=== PATIENT | male | born 1945 | race Caucasian/White ===

== ENCOUNTER 2022-10-06 10:44 | Outpatient (CLI) | payer MEDICARE, OTHER, SELFPAY | END 2022-10-06 10:45 | disposition home or self-care (01) | PROVIDERS: PCP Family Medicine; Visit Provider Family Medicine | DX: I11.0 Hypertensive heart disease with heart failure (principal); E78.5 Hyperlipidemia, unspecified; C61 Malignant neoplasm of prostate | CPT/HCPCS: 80048; 80061; 84153 ==

== ENCOUNTER 2023-06-12 11:24 | Outpatient (CLI) | payer MEDICARE, OTHER, SELFPAY ==
--- OUTSIDE RECORDS SUMMARY | 2023-06-12 11:29 | XMS_ITS | Referral Summary ---
Author Name Unknown Organization [facility] Address [address] [place] [address]. [place] [address] Care Team Providers Care Retail Leasing Agent Name Role Phone Oren Marshall MD Primary Care Provider [phone] Allergies Active Allergy Reactions Criticality Noted Date Comments Isoniazid 10/16/2015 Medications Medication Sig Dispensed Refills Start Date End Date Status TAMSULOSIN HCL PO Take 0.4 mg by mouth daily Active LISINOPRIL PO Take 20 mg by mouth daily Active METOPROLOL TARTRATE PO Take 100 mg by mouth daily Active CITALOPRAM HYDROBROMIDE PO Take 20 mg by mouth daily Active ATORVASTATIN CALCIUM PO Take 20 mg by mouth daily Active Ipratropium-Albuterol (COMBIVENT RESPIMAT) 20-100 MCG/ACT inhaler Inhale 1 puff into the lungs 4 times daily Active VITAMIN D, CHOLECALCIFEROL, PO Take 5,000 Units by mouth daily Active AMLODIPINE BESYLATE PO Take 2.5 mg by mouth daily Active Acetaminophen (TYLENOL PO) Take 1,000 mg by mouth 2 times daily Active HYDROcodone-acetamino phen (NORCO) 5-325 MG per tabletIndications:Pro state CA (H) Take 1-2 tablets by mouth every 4 hours as needed for moderate to severe pain (Moderate to Severe Pain) 30 tablet 0 10/16/2015 Active sulfamethoxazole-trim ethoprim (BACTRIM DS,SEPTRA DS) 800-160 MG per tabletIndications:Pro state CA (H) Take 1 tablet by mouth 2 times daily 14 tablet 0 10/16/2015 Active oxybutynin (DITROPAN) 5 MG tabletIndications:Pro state CA (H) Take 1 tablet (5 mg) by mouth every 8 hours as needed for bladder spasms 30 tablet 1 10/17/2015 Active Active Problems Problem Noted Date Diagnosed Date Hypoxia 10/16/2015 Social History Tobacco Use Types Packs/Day Years Used Date Smoking Tobacco: Former Dip, chew, snus or snuff Alcohol Use Standard Drinks/Week Comments Yes 0 (1 standard drink = 0.6 oz pur e alcohol) rare Adolescent Education Answer Date Record ed Getting School Help Needed Not on file 11/23 Sex and Gender Information Value Date Recorded Sex Assigned at Not on file Gender Identity Not on file Sexual Orientation Not on file Last Filed Vital Signs Vital Sign Reading Time Taken Comments Blood Pressure 114/65 10/17/2015 8:00 AM CDT Pulse - - Temperature 37.7 ??C (99.9 ??F) 10/17/2015 8:00 AM CD T Respiratory Rate 23 10/17/2015 11:0 0 AM CDT Oxygen Saturation 94% 10/17/2015 11: 00 AM CDT Inhaled Oxygen Concentration - - Weight 115.5 kg (254 lb 10.1 oz) 10/16/2015 3:50 PM CDT Height 177.8 cm (5' 10) 10/16/2015 8:44 AM CDT Body Mass Index 36.54 10/16/2015 8:44 AM CDT Plan of Treatment Not on file Procedures Procedure Name Priority Date/Time Associated Diagnosis Comments GLUCOSE BY METER Routine 10/16/2015 3:42 PM CDT Prostate CA (H) from Last 3 Months or Most Recently Relevant to Health Maintenance Results * Glucose by meter (10/16/2015 3:42 PM CDT) Glucose 88 70 - 99 mg/dL POINT OF CARE TEST, GLUCOSE 10/16/2015 3:42 PM CDT 10/16/2015 3:45 PM CDT [facility] POINT OF CARE TEST, GLUCOSE from Last 3 Months or Most Recently Relevant to Health Maintenance Advance Directives For more information, please contact: [phone] * Full Code (Latest Code Status on File) Date Activated Date Inactivated Comments 10/16/2015 7:06 PM 10/17/2015 3:07 PM Care Teams Retail Leasing Agent Relationship Specialty Start Date End Date Oren Marshall MD [facility] [address] [place] [address] PCP - General Family Practice 10/01/15
--- OUTSIDE RECORDS SUMMARY | 2023-06-12 11:29 | XMS_ITS | Clinical Summary ---
Author Name Unknown Organization [facility] Address [place], [place] [address] Care Team Providers Care Veterinary X Ray Operator Name Role Phone Ej Marshall MD Primary Care Provider [phone] Allergies Active Allergy Reactions Criticality Noted Date Comments Isoniazid Rash 06/06/2015 Medications Medication Sig Dispensed Refills Start Date End Date Status lisinopril (PRINIVIL; ZESTRIL) 20 mg tablet Take 20 mg by mouth once daily. Active Cetirizine 10 mg capIndications:season al allergic rhinitis Take 10 mg by mouth once daily if needed. Indications: SEASONAL ALLERGIC RHINITIS Active metoprolol succinate (TOPROL XL) 100 mg Sustained-Release tablet Take 100 mg by mouth once daily. Active escitalopram oxalate (LEXAPRO) 20 mg tablet Take 20 mg by mouth every morning. Active atorvastatin (LIPITOR) 20 mg tabletIndications:Cer ebrovascular accident (CVA), unspecified mechanism (HC) Take 1 tablet by mouth at bedtime. 30 tablet 0 04/15/2015 Active aspirin (ECOTRIN) 81 mg enteric coated tabletIndications:Cer ebrovascular accident (CVA), unspecified mechanism (HC) Take 1 tablet by mouth once daily with a meal. 0 04/15/2015 Active citalopram (CELEXA) 20 mg tablet Take 1 tablet by mouth once daily. 05/02/2015 Active Cholecalciferol, Vitamin D3, (VITAMIN D-3) 5,000 unit tab Take by mouth once daily. 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 CAPRICE (acute kidney injury) 04/12/2015 Immunizations Name Administration Dates Next Due Influenza, IIV3 (Age >=3 years) 12/17/2014 Social History Tobacco Use Types Packs/Day Years Used Date Smoking Tobacco: Never Smokeless Tobacco: Former Quit: 05/10/2013 Tobacco Cessation:Counseling Given: Yes Alcohol Use Standard Drinks/Week Comments Yes 0 (1 standard drink = 0.6 oz pur e alcohol) 3-4 times per year Sex and Gender Information Value Date Recorded Sex Assigned at Not on file Gender Identity Not on file Sexual Orientation Not on file Obstetrics History Last Filed Vital Signs Vital Sign Reading Time Taken Comments Blood Pressure 152/92 04/02/2016 2:41 PM BUSINESS LAWYER Pulse 66 04/02/2016 2:41 PM BUSINESS LAWYER Temperature 36.6 ??C (97.8 ??F) 04/02/2016 2:41 PM CS T Respiratory Rate 20 04/15/2015 9:41 AM BUSINESS LAWYER Oxygen Saturation 99% 11/07/2015 1:33 PM CDT Inhaled Oxygen Concentration - - Weight 115.3 kg (254 lb 1.6 oz) 04/02/2016 2:41 PM BUSINESS LAWYER Height 176.5 cm (5' 9.5) 11/07/2015 1:33 PM CDT Body Mass Index 36.99 11/07/2015 1:33 PM CDT Plan of Treatment Health Maintenance Due Date Last Done Comments Tdap 11/24/1956 Depression screening for age 12+ 1959 Hepatitis C screening for ag e 18-79 11/24/1965 Tetanus booster 1967 Colonoscopy through age 75 11/24/1992 Zoster (shingles) series for age 50+ (1 of 2) 11/24/1997 Pneumococcal series for age 65+ (1 of 1 - PCV) 11/24/2012 BMI (ht and wt on same day) for age 18+ 11/06/2016 11/07/2015, 07/25/2015, 06/06/2015, Additional history exists Lipids for age 45-75 04/13/2020 04/13/2015 COVID-19 vaccine series (2022- season) 2022 Influenza for age 65+ 10/18/2023 12/17/2014 Procedures Procedure Name Priority Date/Time Associated Diagnosis Comments LIPID PANEL Early AM 04/13/2015 5:55 AM BUSINESS LAWYER from Last 3 Months or Most Recently Relevant to Health Maintenance Results * (ABNORMAL) Lipid Panel - Fasting (04/13/2015 5:55 AM BUSINESS LAWYER) CHOLESTEROL,TOTAL 177 100 - 199 mg/dL 04/13/2015 7:16 AM BUSINESS LAWYER [facility] TRIGLYCERIDES 122 <150 mg/dL 04/13/2015 7:16 AM BUSINESS LAWYER [facility] HDL CHOLESTEROL 36(L) >40 mg/dL 04/13/2015 7:16 AM BUSINESS LAWYER [facility] NON-HDL CHOLESTEROL 141 <145 mg/dl 04/13/2015 7:16 AM BUSINESS LAWYER [facility] CHOL/HDL RATIO 4.92(H) <4.50 04/13/2015 7:16 AM BUSINESS LAWYER [facility] LDL CHOLESTEROL 117 <=130 mg/dL 04/13/2015 7:16 AM BUSINESS LAWYER [facility] PATIENT STATUS NOT GIVEN 04/13/2015 7:16 AM BUSINESS LAWYER [facility] Blood specimen (specimen) BLOOD SPECIMEN / Unknown Venipuncture / Unknown 04/13/2015 5:55 AM BUSINESS LAWYER 04/13/2015 6:17 AM BUSINESS LAWYER Teofilo ONTIVEROS [facility] [address] [place] [address] from Last 3 Months or Most Recently Relevant to Health Maintenance Advance Directives * Full Code (Latest Code Status on File) Date Activated Date Inactivated Comments 04/12/2015 1:28 PM 04/15/2015 3:39 PM Care Teams Veterinary X Ray Operator Relationship Specialty Start Date End Date Ej Marshall MD PCP - General Family Practice 05/24/15
--- OUTSIDE RECORDS SUMMARY | 2023-06-12 11:29 | XMS_ITS | Continuity of Care Document ---
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 It does not include entries that were removed or entered in error. Problem Status Onset Date Problem Type Date of Resolution Comments Source Exposure to potentially hazardous substance ([facility] [id number]) Active 04/24/19 24 Condition Apr 24, 2023 Entered By: GUADALUPE ANTONY [facility]: [facility] Documentation Initiative [facility] Benign Prostatic Hypertrophy with Outflow Obstruction (SCT [id number]) Active Condition [facility] Body mass index 30+ - obesity Active Condition [facility] Chronic Kidney Disease Stage 3 ([facility] [id number]) Active Condition [facility] Depression ([facility] [id number]) Active Condition Aug 14, 2022 Entered By: MIGUEL ANGEL AVILES Comment: MANAGED BY [place] Psychiatrist, scripts to [facility] from , Currently on Citalopram and Sertraline [facility] Dyspnea Active Condition Aug 27 Entered By: MIGUEL ANGEL AVILES Comment: outside [place] PFTs show probable obstructionJul 2021 Entered By: MIGUEL ANGEL AVILES Comment: [place] been seen by [place] para professional, PFTs there normal with recs to STOP INHALERS without asthma or COPDSep 2021 Entered By: MIGUEL ANGEL AVILES Comment: SEE RESULT LETTER 11/01/21 for details of Stress ECG negative for ischemia.Nov 04, 2021 Entered By: MIGUEL ANGEL AVILES Comment: Peak heart rate 125 bpm, which is 85% of the maximum predicted heart rate.Nov 04, 2021 Entered By: MIGUEL ANGEL AVILES Comment: test was stopped due to SOB and leg weakness [facility] Ex-tobacco chewer Active Condition Ju 2021 Entered By: MIGUEL ANGEL AVILES Comment: has smoked Cigars from 9997-3475, then chewed tobacco to quit in 2014 [facility] Family social history Active Condition Aug 12, 2021 Entered By: MIGUEL ANGEL AVILES Comment: Smoked Cigars from 4340-5838, then chewed tobacco to quit in 2021 Entered By: MIGUEL ANGEL AVILES Comment: [employer]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 Entered By: MIGUEL ANGEL AVILES Comment: Dad of colon cancer surgery had a pad left behind at age 62Jun 2021 Entered By: MIGUEL ANGEL AVILES Comment: Mom was smoker and was life long Alcoholic at age 66Jun 2021 Entered By: MIGUEL ANGEL AVILES Comment: Biological Daughter has MS and lives with themAug 12, 2021 Entered By: MIGUEL ANGEL AVILES Comment: Able to drive, grocery shopping, cooks with , does laundry, he does yard workAug 12, 2021 Entered By: MIGUEL ANGEL AVILES Comment: Snow work is hired outAug 12, 2021 Entered By: MIGUEL ANGEL AVILES Comment: was deployed to [employer] area) [place] 2021 Entered By: MIGUEL ANGEL AVILES Comment: Alcohol 1-2 beers a year [facility] GERD - Gastro-Esophageal Reflux Disease ([facility] [id number]) Active Condition [facility] H/O: surgery Active Condition Aug 12, 2021 Entered By: MIGUEL ANGEL AVILES Comment: s/p TURP- FOR PROSTATE CANCER S/P CRYOTHERAPYJun 2021 Entered By: MIGUEL ANGEL AVILES Comment: S/p Right Ankle fracture repair HardwareJun 2021 Entered By: MIGUEL ANGEL AVILES Comment: s/p B/L Cataract surgeryJun 2021 Entered By: MIGUEL ANGEL AVILES Comment: HAS HAD DELAYED RECOVERY FROM ANESTHESIAJun 2021 Entered By: MIGUEL ANGEL AVILES Comment: s/p Colonoscopy 2019 F/U IN 10 YRS and wants to stop screening [facility] History of acute renal failure Active Condition [facility] HTN - Hypertension (SCT [id number]) Active Condition [facility] Hyperlipidemia (SCT 79974590) Active Condition [facility] left orbital mass Active Condition Ju n 2021 Entered By: MIGUEL ANGEL AVILES Comment: Thought to be benign, 02/09/2020 CT done at [place] shows it was in left upper lid without involving the globe [facility] Left ventricular hypertrophy Active Condition [facility] Osteoarthritis Active Condition [facility] Prostate Cancer (SCT [id number]) Active Condition Aug 12, 2021 Entered By: MIGUEL ANGEL AVILES Comment: S/P CRYOTHERAPYJun 2021 Entered By: MIGUEL ANGEL AVILES Comment: Managed by Urologist at [facility] with [facility] Visual impairment Active Condition Ju n 2021 Entered By: MIGUEL ANGEL AVILES Comment: from previous STROKE, Blurry and lost peripheral vision for 1 week and gradually better now [facility] Diagnosis: ICD-10-CM Z71.9 Counseling, unspecified Active Diagnosis [facility] Diagnosis: ICD-10-CM Z00.01 Encounter for general adult medical exam w abnormal findings Active Diagnosis [facility] Medications Combined list of outpatient medications from Department of Defense and Veterans Affairs facilities.Medications provided include 1) outpatient medications from the last 15 months, and 2) patient-reported medications. Medication Details Route Status Patient Instructions Prescription Expires Prescription Number Last Dispense Date Ordering Provider Order Date Order Qty Source AMLODIPINE BESYLATE (amlodipine besylate), 5 MG, TABLET, ORAL, [facility], 1000 ea. BOTTLE Active [id number] 2022 90 Pharmac y Data Transac tion Service Facilit y AMLODIPINE BESYLATE (AMLODIPINE BESYLATE), 5 MG, TABLET, ORAL, EXELAN PHARMACE, 1000 ea. BOTTLE Active [id number] 4 2023 90 Pharmac y Data Transac tion Service Facilit y AMLODIPINE BESYLATE 10MG TAB TAKE ONE-HALF TABLET BY MOUTH EVERY EVENING ORALLY ACTIVE VIVIAN AVILES S 2021 [facility] ASPIRIN 81MG TAB,EC TAKE ONE TABLET BY MOUTH EVERY DAY ORALLY ACTIVE VIVIAN AVILES S 2021 [facility] ATORVASTATI N CA 40MG TAB TAKE ONE-HALF TABLET BY MOUTH EVERY DAY ORALLY ACTIVE VIVIAN AVILES S 2021 [facility] ATORVASTATI N CALCIUM (ATORVASTAT IN CALCIUM), 20 MG, TABLET, ORAL, APOTEX DARCI, 1000 ea. BOTTLE Active [id number] 4 2023 90 Pharmac y Data Transac tion Service Facilit y ATORVASTATI N CALCIUM (atorvastat in calcium), 20 MG, TABLET, ORAL, [employer] [facility], 500 ea. BOTTLE Active [id number] 4 2023 90 Pharmac y Data Transac tion Service Facilit y BUSPIRONE HCL (buspirone HCl), 5 MG, TABLET, ORAL, [employer] 500 ea. BOTTLE Active [id number] 2023 180 Pharmac y Data Transac tion Service Facilit y BUSPIRONE HCL (buspirone HCl), 5 MG, TABLET, ORAL, [employer] 500 ea. BOTTLE Active [id number] 2023 180 Pharmac y Data Transac tion Service Facilit y COMBIVENT RESPIMAT (IPRATROPIU M/ALBUTEROL SULFATE), 20-100 MCG, MIST INHAL, INHALATION, BOEHRINGER ING., 4 g AER W/ADAP Active [id number] 2023 12 Pharmac y Data Transac tion Service Facilit y COMBIVENT RESPIMAT (IPRATROPIU M/ALBUTEROL SULFATE), 20-100 MCG, MIST INHAL, INHALATION, BOEHRINGER ING., 4 g AER W/ADAP Active [id number] 2023 12 Pharmac y Data Transac tion Service Facilit y LISINOPRIL (lisinopril ), 20 MG, TABLET, ORAL, [facility], 1000 ea. BOTTLE Active [id number] 4 2023 90 Pharmac y Data Transac tion Service Facilit y LISINOPRIL 40MG TAB TAKE ONE-HALF TABLET BY MOUTH ORALLY ACTIVE VIVIAN AVILES S 2021 [facility] METOPROLOL SUCCINATE (metoprolol succinate), 100 MG, TAB ER 24H, ORAL, [employer] 1000 ea. BOTTLE Active [id number] 4 2023 90 Pharmac y Data Transac tion Service Facilit y METOPROLOL SUCCINATE (metoprolol succinate), 100 MG, TAB ER 24H, ORAL, [employer] 1000 ea. BOTTLE Active [id number] 2023 90 Pharmac y Data Transac tion Service Facilit y METOPROLOL TARTRATE 100MG TAB TAKE ONE TABLET BY MOUTH ORALLY ACTIVE VIVIAN AVILES 2021 [facility] NON VA MED NOT LISTED USE CITALOPR AM HYDROBRO MIDE MOUTH ORALLY ACTIVE VIVIAN AVILES 2021 [facility] NON VA MED NOT LISTED USE IPRATROP IUM-ALBU TEROL (COMBIVE NT RESPIMAT ) 20-100 MCG/ACT INHALER MOUTH FOUR TIMES A DAY ORALLY ACTIVE VIVIAN AVILES 2021 [facility] OMEPRAZOLE 20MG CAP,EC TAKE 1 CAPSULE BY MOUTH EVERY DAY ORALLY ACTIVE VIVIAN AVILES 2021 [facility] SERTRALINE HCL (SERTRALINE HCL), 100MG, TABLET, ORAL, [facility], 500 ea. BOTTLE Active [id number] 2023 90 Pharmac y Data Transac tion Service Facilit y SERTRALINE HCL (SERTRALINE HCL), 100MG, TABLET, ORAL, [facility], 500 ea. BOTTLE Cancele d [id number] : 2023 0 Pharmac y Data Transac tion Service Facilit y SERTRALINE HCL (SERTRALINE HCL), 100MG, TABLET, ORAL, [facility], 500 ea. BOTTLE Cancele d [id number] : 2023 0 Pharmac y Data Transac tion Service Facilit y SERTRALINE HCL (SERTRALINE HCL), 100MG, TABLET, ORAL, [facility], 500 ea. BOTTLE Active [id number] 2023 90 Pharmac y Data Transac tion Service Facilit y SERTRALINE HCL (sertraline HCl), 50 MG, TABLET, ORAL, [employer] [facility], 180 ea. BOTTLE Cancele d [id number] : 2023 0 Pharmac y Data Transac tion Service Facilit y SERTRALINE HCL (SERTRALINE HCL), 50 MG, TABLET, ORAL, [facility], 500 ea. BOTTLE Active [id number] 2023 180 Pharmac y Data Transac tion Service Facilit y SERTRALINE HCL 100MG TAB TAKE ONE TABLET BY MOUTH EVERY MORNING ORALLY ACTIVE VIVIAN AVILES S 2021 [facility] TAMSULOSIN HCL 0.4MG CAP TAKE 1 CAPSULE BY MOUTH ORALLY ACTIVE VIVIAN AVILES S 2021 [facility] TIZANIDINE HCL (TIZANIDINE HCL), 4MG, TABLET, ORAL, [employer] DARCI, 150 ea. BOTTLE Active [id number] 2023 270 Pharmac y Data Transac tion Service Facilit y TIZANIDINE HCL (TIZANIDINE HCL), 4MG, TABLET, ORAL, [employer] DARCI, 150 ea. BOTTLE Active [id number] 2023 270 Pharmac y Data Transac tion Service Facilit y TIZANIDINE HCL 4MG TAB TAKE ONE TABLET BY MOUTH EVERY 8 HOURS NEEDED ORALLY ACTIVE VIVIAN AVILES S 2021 [facility] Allergies, Adverse Reactions, Alerts Combined list of allergies from Department of Defense and Veterans Affairs facilities. It does not include entries that were removed or entered in error. Substance Category Reaction Severity Reaction type Status Date Reported Comments Source ISONIAZID Drug allergy (disorder) Urticaria active 2 [facility] Immunizations Combined list of available immunizations from the Department of Defense and Veterans Affairs facilities. Immunization Series Date Given Administered By Site Reaction Lot Number CVX Code Drug Paper Machine Back Tender Status Comments Source COVID-19 ([employer]), MRNA, LNP-S, PF, LUZ-SUCROSE, 30 MCG/0.3 ML (AGES 12+ YEARS) 2022 309 complet ed [facility] INFLUENZA, HIGH-DOSE, QUADRIVALENT 2022 197 complet ed [facility] COVID-19 ([employer]), MRNA, LNP-S, BIVALENT BOOSTER, PF, 30 MCG/0.3 ML DOSE 1 2021 300 complet ed PFR; [id number]; 3 [facility] INFLUENZA VACCINE, QUADRIVALENT, ADJUVANTED 2021 205 complet ed [facility] ZOSTER RECOMBINANT 2 2021 187 complet ed [facility] ZOSTER RECOMBINANT 1 2021 187 complet ed [facility] COVID-19 ([employer]), MRNA, LNP-S, PF, 30 MCG/0.3 ML DOSE, LUZ-SUCROSE (AGES 12+ YEARS) 4 2021 217 complet ed PFR; [id number]; 2 [facility] COVID-19 ([employer]), MRNA, LNP-S, PF, 30 MCG/0.3 ML DOSE 3 2020 208 complet ed PFR; [id number]; 2 [facility] INFLUENZA, UNSPECIFIED FORMULATION 2020 88 complet ed [facility] COVID-19 ([employer]), MRNA, LNP-S, PF, 30 MCG/0.3 ML DOSE 2 2020 208 complet ed PFR; [id number]; 1 [facility] COVID-19 ([employer]), MRNA, LNP-S, PF, 30 MCG/0.3 ML DOSE 2020 208 complet ed [facility] COVID-19 ([employer]), MRNA, LNP-S, PF, 30 MCG/0.3 ML DOSE 1 2020 208 complet ed PFR; [id number]; 1 [facility] COVID-19 ([employer]), MRNA, LNP-S, PF, 30 MCG/0.3 ML DOSE 2020 208 complet ed [facility] INFLUENZA, HIGH DOSE SEASONAL 2018 135 complet ed [facility] PNEUMOCOCCAL POLYSACCHARID E PPV23 2018 33 complet ed [facility] INFLUENZA, HIGH DOSE SEASONAL 2017 135 complet ed [facility] PNEUMOCOCCAL CONJUGATE PCV 13 2017 133 complet ed [facility] TDAP 2017 115 complet ed [facility] INFLUENZA, SEASONAL, INJECTABLE 2014 141 complet ed [facility] INFLUENZA, SEASONAL, INJECTABLE 2014 141 complet ed [facility] INFLUENZA, UNSPECIFIED FORMULATION 2008 88 complet ed [facility] INFLUENZA, UNSPECIFIED FORMULATION 2007 88 complet ed [facility] INFLUENZA, UNSPECIFIED FORMULATION 2006 88 complet ed [facility] TD (ADULT), 2 LF TETANUS TOXOID, PRESERVATIVE FREE, ADSORBED 2004 09 complet ed [facility] TD(ADULT) UNSPECIFIED FORMULATION 2004 139 complet ed [facility] Results Combined list of recent chemistry, hematology and other laboratory results from Department of Defense and Veterans Affairs, ranging from 15 months to all on record, depending upon the facility. Order Name Results Value Reference Range Date Interpretation Specimen Comments Source CBC & DIFF LEUKOCYTES [#/VOLUME] IN BLOOD BY AUTOMATED COUNT 7.89 4.0 - 11.0 10/22 Specimen Type: BLOOD Comment: Automated Differentia l Performed Ordering Provider: MIGUEL ANGEL AVILES Report Released Date/Time: Oct 18, 2021 12:21 PM Reporting Lab: [facility] [address] Performing Lab: [facility] [address] YVAN HERRERA CBC & DIFF ERYTHROCYTE S [#/VOLUME] IN BLOOD BY AUTOMATED COUNT 4.56 4.6 - 6.2 10/22 L Specimen Type: BLOOD Comment: Automated Differentia l Performed Ordering Provider: MIGUEL ANGEL AVILES Report Released Date/Time: Oct 18, 2021 12:21 PM Reporting Lab: [facility] [address] Performing Lab: [facility] [address] [facility] CBC & DIFF HEMOGLOBIN [MASS/VOLUM E] IN BLOOD 14.0 13.5 - 17.9 10/22 Specimen Type: BLOOD Comment: Automated Differentia l Performed Ordering Provider: MIGUEL ANGEL AVILES Report Released Date/Time: Oct 18, 2021 12:21 PM Reporting Lab: [facility] [address] Performing Lab: [facility] [address] [facility] CBC & DIFF HEMATOCRIT [VOLUME FRACTION] OF BLOOD BY AUTOMATED COUNT 42.3 41 - 54 10/22 Specimen Type: BLOOD Comment: Automated Differentia l Performed Ordering Provider: MIGUEL ANGEL AVILES Report Released Date/Time: Oct 18, 2021 12:21 PM Reporting Lab: [facility] [address] Performing Lab: [facility] [address] [facility] CBC & DIFF MCV [ENTITIC VOLUME] BY AUTOMATED COUNT 92.8 80 - 100 10/22 Specimen Type: BLOOD Comment: Automated Differentia l Performed Ordering Provider: MIGUEL ANGEL AVILES Report Released Date/Time: Oct 18, 2021 12:21 PM Reporting Lab: [facility] [address] Performing Lab: [facility] [address] [facility] CBC & DIFF MCH [ENTITIC MASS] BY AUTOMATED COUNT 30.7 27 - 33 10/22 Specimen Type: BLOOD Comment: Automated Differentia l Performed Ordering Provider: MIGUEL ANGEL AVILES Report Released Date/Time: Oct 18, 2021 12:21 PM Reporting Lab: [facility] [address] Performing Lab: [facility] [address] [facility] CBC & DIFF MCHC [MASS/VOLUM E] BY AUTOMATED COUNT 33.1 32.0 - 37.5 10/22 Specimen Type: BLOOD Comment: Automated Differentia l Performed Ordering Provider: MIGUEL ANGEL AVILES Report Released Date/Time: Oct 18, 2021 12:21 PM Reporting Lab: [facility] [address] Performing Lab: [facility] [address] [facility] CBC & DIFF PLATELETS [#/VOLUME] IN BLOOD BY AUTOMATED COUNT 183 150 - 400 10/22 Specimen Type: BLOOD Comment: Automated Differentia l Performed Ordering Provider: MIGUEL ANGEL AVILES Report Released Date/Time: Oct 18, 2021 12:21 PM Reporting Lab: [facility] [phone] Performing Lab: [facility] [address] [facility] CBC & DIFF PLATELET MEAN VOLUME [ENTITIC VOLUME] IN BLOOD BY AUTOMATED COUNT 9.7 7.4 - 10.4 10/22 Specimen Type: BLOOD Comment: Automated Differentia l Performed Ordering Provider: MIGUEL ANGEL AVILES Report Released Date/Time: Oct 18, 2021 12:21 PM Reporting Lab: [facility] [address] Performing Lab: [facility] [address] [facility] CBC & DIFF NEUTROPHILS /100 LEUKOCYTES IN BLOOD BY MANUAL COUNT 80.5 10/22 Specimen Type: BLOOD Comment: Automated Differentia l Performed Ordering Provider: MIGUEL ANGEL AVILES Report Released Date/Time: Oct 18, 2021 12:21 PM Reporting Lab: [facility] [address] Performing Lab: [facility] [address] [facility] CBC & DIFF LYMPHOCYTES /100 LEUKOCYTES IN BLOOD BY MANUAL COUNT 8.0 10/22 Specimen Type: BLOOD Comment: Automated Differentia l Performed Ordering Provider: MIGUEL ANGEL AVILES Report Released Date/Time: Oct 18, 2021 12:21 PM Reporting Lab: [facility] [address] Performing Lab: [facility] [address] [facility] CBC & DIFF MONOCYTES/1 00 LEUKOCYTES IN BLOOD BY AUTOMATED COUNT 7.5 10/22 Specimen Type: BLOOD Comment: Automated Differentia l Performed Ordering Provider: MIGUEL ANGEL AVILES Report Released Date/Time: Oct 18, 2021 12:21 PM Reporting Lab: [facility] [address] Performing Lab: [facility] [address] [facility] CBC & DIFF EOSINOPHILS /100 LEUKOCYTES IN BLOOD BY AUTOMATED COUNT 3.4 10/22 Specimen Type: BLOOD Comment: Automated Differentia l Performed Ordering Provider: MIGUEL ANGEL AVILES Report Released Date/Time: Oct 18, 2021 12:21 PM Reporting Lab: [facility] [address] Performing Lab: [facility] [address] [facility] CBC & DIFF BASOPHILS/1 00 LEUKOCYTES IN BLOOD BY MANUAL COUNT 0.5 10/22 Specimen Type: BLOOD Comment: Automated Differentia l Performed Ordering Provider: MIGUEL ANGEL AVILES Report Released Date/Time: Oct 18, 2021 12:21 PM Reporting Lab: [facility] [address] Performing Lab: [facility] [address] [facility] CBC & DIFF ERYTHROCYTE DISTRIBUTIO N WIDTH [RATIO] BY AUTOMATED COUNT 12.9 11.5 - 14.5 10/22 Specimen Type: BLOOD Comment: Automated Differentia l Performed Ordering Provider: MIGUEL ANGEL AVILES Report Released Date/Time: Oct 18, 2021 12:21 PM Reporting Lab: [facility] [address] Performing Lab: [facility] [address] [facility] CBC & DIFF LYMPHOCYTES [#/VOLUME] IN BLOOD BY AUTOMATED COUNT 0.63 1.0 - 4.0 10/22 L Specimen Type: BLOOD Comment: Automated Differentia l Performed Ordering Provider: MIGUEL ANGEL AVILES Report Released Date/Time: Oct 18, 2021 12:21 PM Reporting Lab: [facility] [address] Performing Lab: [facility] [address] [facility] CBC & DIFF MONOCYTES [#/VOLUME] IN BLOOD BY AUTOMATED COUNT 0.59 0.1 - 1.0 10/22 Specimen Type: BLOOD Comment: Automated Differentia l Performed Ordering Provider: MIGUEL ANGEL AVILES Report Released Date/Time: Oct 18, 2021 12:21 PM Reporting Lab: [facility] [address] Performing Lab: [facility] [address] [facility] CBC & DIFF NEUTROPHILS [#/VOLUME] IN BLOOD BY AUTOMATED COUNT 6.35 2.0 - 7.7 10/22 Specimen Type: BLOOD Comment: Automated Differentia l Performed Ordering Provider: MIGUEL ANGEL AVILES Report Released Date/Time: Oct 18, 2021 12:21 PM Reporting Lab: [facility] [address] Performing Lab: [facility] [address] [facility] CBC & DIFF EOSINOPHILS [#/VOLUME] IN BLOOD BY AUTOMATED COUNT 0.27 0 - 0.5 10/22 Specimen Type: BLOOD Comment: Automated Differentia l Performed Ordering Provider: MIGUEL ANGEL AVILES Report Released Date/Time: Oct 18, 2021 12:21 PM Reporting Lab: [facility] [address] Performing Lab: [facility] [address] [facility] CBC & DIFF BASOPHILS [#/VOLUME] IN BLOOD BY AUTOMATED COUNT 0.04 0 - 0.2 10/22 Specimen Type: BLOOD Comment: Automated Differentia l Performed Ordering Provider: MIGUEL ANGEL AVILES Report Released Date/Time: Oct 18, 2021 12:21 PM Reporting Lab: [facility] [address] Performing Lab: [facility] [address] [facility] CBC & DIFF IG(META,MYE LO,PRO) 0.1 10/22 Specimen Type: BLOOD Comment: Automated Differentia l Performed Ordering Provider: MIGUEL ANGEL AVILES Report Released Date/Time: Oct 18, 2021 12:21 PM Reporting Lab: [facility] [address] Performing Lab: [facility] [address] [facility] CBC & DIFF IMMATURE GRANULOCYTE S [PRESENCE] IN BLOOD BY AUTOMATED COUNT 0.01 0 - 0.1 10/22 Specimen Type: BLOOD Comment: Automated Differentia l Performed Ordering Provider: MIGUEL ANGEL AVILES Report Released Date/Time: Oct 18, 2021 12:21 PM Reporting Lab: [facility] [address] Performing Lab: [facility] [address] [facility] PSA PROSTATE SPECIFIC AG [MASS/VOLUM E] IN SERUM OR PLASMA 3.14 <4.00 - 4.00 10/22 Specimen Type: SERUM No comment entered. Ordering Provider: MIGUEL ANGEL AVILES Report Released Date/Time: Oct 18, 2021 12:21 PM Reporting Lab: [facility] [address] Performing Lab: [facility] [address] [facility] TSH W/REFLEX TO FREE T4 THYROTROPIN [UNITS/VOLU ME] IN SERUM OR PLASMA 0.81 0.35 - 4.94 10/22 Specimen Type: PLASMA No comment entered. Ordering Provider: MIGUEL ANGEL AVILES Report Released Date/Time: Oct 18, 2021 12:21 PM Reporting Lab: [facility] [address] Performing Lab: [facility] [address] [facility] BLOOD GASES PH OF VENOUS BLOOD 7.29 7.33 - 7.43 08/26 L Specimen Type: VENOUS BLOOD No comment entered. Ordering Provider: Yahaira TRIMBLE Report Released Date/Time: Aug 26, 2021 02:21 PM Reporting Lab: [facility] [address] Performing Lab: [facility] [address] [place] [facility] BLOOD GASES CARBON DIOXIDE [PARTIAL PRESSURE] IN VENOUS BLOOD 54 41 - 51 08/26 H Specimen Type: VENOUS BLOOD No comment entered. Ordering Provider: Yahaira TRIMBLE Report Released Date/Time: Aug 26, 2021 02:21 PM Reporting Lab: [facility] [address] Performing Lab: [facility] [address] [place] [facility] BLOOD GASES BICARBONATE [MOLES/VOLU ME] IN VENOUS BLOOD 22.1 21.0 - 30.0 08/26 Specimen Type: VENOUS BLOOD No comment entered. Ordering Provider: Yahaira TRIMBLE Report Released Date/Time: Aug 26, 2021 02:21 PM Reporting Lab: [facility] [address] Performing Lab: [facility] [address] [place] [facility] BLOOD GASES OXYGEN [PARTIAL PRESSURE] IN VENOUS BLOOD 30 35 - 40 08/26 L Specimen Type: VENOUS BLOOD No comment entered. Ordering Provider: Yahaira TRIMBLE Report Released Date/Time: Aug 26, 2021 02:21 PM Reporting Lab: [facility] [address] Performing Lab: [facility] [address] [place] [facility] BLOOD GASES OXYGEN SATURATION IN VENOUS BLOOD 54.7 70.0 - 75.0 08/26 L Specimen Type: VENOUS BLOOD No comment entered. Ordering Provider: Yahaira TRIMBLE Report Released Date/Time: Aug 26, 2021 02:21 PM Reporting Lab: [facility] [address] Performing Lab: [facility] [address] [place] [facility] C-REACTIV E PROTEIN C REACTIVE PROTEIN [MASS/VOLUM E] IN SERUM OR PLASMA BY HIGH SENSITIVITY METHOD 5.68 <5.00 - 5.00 08/26 H Specimen Type: PLASMA No comment entered. Ordering Provider: Yahaira TRIMBLE Report Released Date/Time: Aug 26, 2021 02:21 PM Reporting Lab: [facility] [address] Performing Lab: [facility] [address] [place] [facility] CBC & DIFF LEUKOCYTES [#/VOLUME] IN BLOOD BY AUTOMATED COUNT 10.61 4.0 - 11.0 08/26 Specimen Type: BLOOD Comment: Automated Differentia l Performed Ordering Provider: Yahaira TRIMBLE Report Released Date/Time: Aug 26, 2021 02:21 PM Reporting Lab: [facility] [address] Performing Lab: [facility] [address] [place] [facility] CBC & DIFF ERYTHROCYTE S [#/VOLUME] IN BLOOD BY AUTOMATED COUNT 4.88 4.6 - 6.2 07/11 /2022 Specimen Type: BLOOD Comment: Automated Differentia l Performed Ordering Provider: Yahaira TRIMBLE Report Released Date/Time: Aug 26, 2021 02:21 PM Reporting Lab: [facility] [address] Performing Lab: [facility] [address] [place] [facility] CBC & DIFF HEMOGLOBIN [MASS/VOLUM E] IN BLOOD 15.3 13.5 - 17.9 08/26 Specimen Type: BLOOD Comment: Automated Differentia l Performed Ordering Provider: Yahaira TRIMBLE Report Released Date/Time: Aug 26, 2021 02:21 PM Reporting Lab: [facility] [address] Performing Lab: [facility] [address] [place] [facility] CBC & DIFF HEMATOCRIT [VOLUME FRACTION] OF BLOOD BY AUTOMATED COUNT 44.8 41 - 54 08/26 Specimen Type: BLOOD Comment: Automated Differentia l Performed Ordering Provider: Yahaira TRIMBLE Report Released Date/Time: Aug 26, 2021 02:21 PM Reporting Lab: [facility] [address] Performing Lab: [facility] [address] [place] [facility] CBC & DIFF MCV [ENTITIC VOLUME] BY AUTOMATED COUNT 91.8 80 - 100 08/26 Specimen Type: BLOOD Comment: Automated Differentia l Performed Ordering Provider: Yahaira TRIMBLE Report Released Date/Time: Aug 26, 2021 02:21 PM Reporting Lab: [facility] [address] Performing Lab: [facility] [address] [place] [facility] CBC & DIFF MCH [ENTITIC MASS] BY AUTOMATED COUNT 31.4 27 - 33 08/26 Specimen Type: BLOOD Comment: Automated Differentia l Performed Ordering Provider: Yahaira TRIMBLE Report Released Date/Time: Aug 26, 2021 02:21 PM Reporting Lab: [facility] [address] Performing Lab: [facility] [address] [place] [facility] CBC & DIFF MCHC [MASS/VOLUM E] BY AUTOMATED COUNT 34.2 32.0 - 37.5 08/26 Specimen Type: BLOOD Comment: Automated Differentia l Performed Ordering Provider: Yahaira TRIMBLE Report Released Date/Time: Aug 26, 2021 02:21 PM Reporting Lab: [facility] [address] Performing Lab: [facility] [address] [place] [facility] CBC & DIFF PLATELETS [#/VOLUME] IN BLOOD BY AUTOMATED COUNT 203 150 - 400 08/26 Specimen Type: BLOOD Comment: Automated Differentia l Performed Ordering Provider: Yahaira TRIMBLE Report Released Date/Time: Aug 26, 2021 02:21 PM Reporting Lab: [facility] [address] Performing Lab: [facility] [address] [place] [facility] CBC & DIFF PLATELET MEAN VOLUME [ENTITIC VOLUME] IN BLOOD BY AUTOMATED COUNT 9.5 7.4 - 10.4 08/26 Specimen Type: BLOOD Comment: Automated Differentia l Performed Ordering Provider: Yahaira TRIMBLE Report Released Date/Time: Aug 26, 2021 02:21 PM Reporting Lab: [facility] [address] Performing Lab: [facility] [address] [place] [facility] CBC & DIFF NEUTROPHILS /100 LEUKOCYTES IN BLOOD BY MANUAL COUNT 79.4 08/26 Specimen Type: BLOOD Comment: Automated Differentia l Performed Ordering Provider: Yahaira TRIMBLE Report Released Date/Time: Aug 26, 2021 02:21 PM Reporting Lab: [facility] [address] Performing Lab: [facility] [address] [place] [facility] CBC & DIFF LYMPHOCYTES /100 LEUKOCYTES IN BLOOD BY MANUAL COUNT 7.4 08/26 Specimen Type: BLOOD Comment: Automated Differentia l Performed Ordering Provider: Yahaira TRIMBLE Report Released Date/Time: Aug 26, 2021 02:21 PM Reporting Lab: [facility] [address] Performing Lab: [facility] [address] [place] [facility] CBC & DIFF MONOCYTES/1 00 LEUKOCYTES IN BLOOD BY AUTOMATED COUNT 6.7 08/26 Specimen Type: BLOOD Comment: Automated Differentia l Performed Ordering Provider: Yahaira TRIMBLE Report Released Date/Time: Aug 26, 2021 02:21 PM Reporting Lab: [facility] [address] Performing Lab: [facility] [address] [place] [facility] CBC & DIFF EOSINOPHILS /100 LEUKOCYTES IN BLOOD BY AUTOMATED COUNT 5.2 08/26 Specimen Type: BLOOD Comment: Automated Differentia l Performed Ordering Provider: Yahaira TRIMBLE Report Released Date/Time: Aug 26, 2021 02:21 PM Reporting Lab: [facility] [address] Performing Lab: [facility] [address] [place] [facility] CBC & DIFF BASOPHILS/1 00 LEUKOCYTES IN BLOOD BY MANUAL COUNT 0.8 08/26 Specimen Type: BLOOD Comment: Automated Differentia l Performed Ordering Provider: Yahaira TRIMBLE Report Released Date/Time: Aug 26, 2021 02:21 PM Reporting Lab: [facility] [address] Performing Lab: [facility] [address] [place] [facility] CBC & DIFF ERYTHROCYTE DISTRIBUTIO N WIDTH [RATIO] BY AUTOMATED COUNT 14.1 11.5 - 14.5 08/26 Specimen Type: BLOOD Comment: Automated Differentia l Performed Ordering Provider: Yahaira TRIMBLE Report Released Date/Time: Aug 26, 2021 02:21 PM Reporting Lab: [facility] [address] Performing Lab: [facility] [address] [place] [facility] CBC & DIFF LYMPHOCYTES [#/VOLUME] IN BLOOD BY AUTOMATED COUNT 0.78 1.0 - 4.0 08/26 L Specimen Type: BLOOD Comment: Automated Differentia l Performed Ordering Provider: Yahaira TRIMBLE Report Released Date/Time: Aug 26, 2021 02:21 PM Reporting Lab: [facility] [address] Performing Lab: [facility] [address] [place] [facility] CBC & DIFF MONOCYTES [#/VOLUME] IN BLOOD BY AUTOMATED COUNT 0.71 0.1 - 1.0 08/26 Specimen Type: BLOOD Comment: Automated Differentia l Performed Ordering Provider: Yahaira TRIMBLE Report Released Date/Time: Aug 26, 2021 02:21 PM Reporting Lab: [facility] [address] Performing Lab: [facility] [address] [place] [facility] CBC & DIFF NEUTROPHILS [#/VOLUME] IN BLOOD BY AUTOMATED COUNT 8.44 2.0 - 7.7 08/26 H Specimen Type: BLOOD Comment: Automated Differentia l Performed Ordering Provider: Yahaira TRIMBLE Report Released Date/Time: Aug 26, 2021 02:21 PM Reporting Lab: [facility] [address] Performing Lab: [facility] [address] [place] [facility] CBC & DIFF EOSINOPHILS [#/VOLUME] IN BLOOD BY AUTOMATED COUNT 0.55 0 - 0.5 08/26 H Specimen Type: BLOOD Comment: Automated Differentia l Performed Ordering Provider: Yahaira TRIMBLE Report Released Date/Time: Aug 26, 2021 02:21 PM Reporting Lab: [facility] [address] Performing Lab: [facility] [address] [place] [facility] CBC & DIFF BASOPHILS [#/VOLUME] IN BLOOD BY AUTOMATED COUNT 0.08 0 - 0.2 08/26 Specimen Type: BLOOD Comment: Automated Differentia l Performed Ordering Provider: Yahaira TRIMBLE Report Released Date/Time: Aug 26, 2021 02:21 PM Reporting Lab: [facility] [address] Performing Lab: [facility] [address] [place] [facility] CBC & DIFF IG(META,MYE LO,PRO) 0.5 08/26 Specimen Type: BLOOD Comment: Automated Differentia l Performed Ordering Provider: Yahaira TRIMBLE Report Released Date/Time: Aug 26, 2021 02:21 PM Reporting Lab: [facility] [address] Performing Lab: [facility] [address] [place] [facility] CBC & DIFF IMMATURE GRANULOCYTE S [PRESENCE] IN BLOOD BY AUTOMATED COUNT 0.05 0 - 0.1 08/26 Specimen Type: BLOOD Comment: Automated Differentia l Performed Ordering Provider: Yahaira TRIMBLE Report Released Date/Time: Aug 26, 2021 02:21 PM Reporting Lab: [facility] [address] Performing Lab: [facility] [address] [place] [facility] COMPREHEN SIVE METABOLIC PANEL+MG CREATININE [MASS/VOLUM E] IN SERUM OR PLASMA 2.4 0.7 - 1.2 08/26 H Specimen Type: PLASMA No comment entered. Ordering Provider: Yahaira TRIMBLE Report Released Date/Time: Aug 26, 2021 02:21 PM Reporting Lab: [facility] [address] Performing Lab: [facility] [address] [place] [facility] COMPREHEN SIVE METABOLIC PANEL+MG UREA NITROGEN [MASS/VOLUM E] IN SERUM OR PLASMA 21 8 - 26 08/26 Specimen Type: PLASMA No comment entered. Ordering Provider: Yahaira TRIMBLE Report Released Date/Time: Aug 26, 2021 02:21 PM Reporting Lab: [facility] [address] Performing Lab: [facility] [address] [place] [facility] COMPREHEN SIVE METABOLIC PANEL+MG GLUCOSE [MASS/VOLUM E] IN SERUM OR PLASMA 93 74 - 100 08/26 Specimen Type: PLASMA No comment entered. Ordering Provider: Yahaira TRIMBLE Report Released Date/Time: Aug 26, 2021 02:21 PM Reporting Lab: [facility] [address] Performing Lab: [facility] [address] [place] [facility] COMPREHEN SIVE METABOLIC PANEL+MG SODIUM [MOLES/VOLU ME] IN SERUM OR PLASMA 139 136 - 145 08/26 Specimen Type: PLASMA No comment entered. Ordering Provider: Yahaira TRIMBLE Report Released Date/Time: Aug 26, 2021 02:21 PM Reporting Lab: [facility] [address] Performing Lab: [facility] [address] [place] [facility] COMPREHEN SIVE METABOLIC PANEL+MG POTASSIUM [MOLES/VOLU ME] IN SERUM OR PLASMA 4.6 3.5 - 5.1 08/26 Specimen Type: PLASMA No comment entered. Ordering Provider: Yahaira TRIMBLE Report Released Date/Time: Aug 26, 2021 02:21 PM Reporting Lab: [facility] [address] Performing Lab: [facility] [address] [place] [facility] COMPREHEN SIVE METABOLIC PANEL+MG CHLORIDE [MOLES/VOLU ME] IN SERUM OR PLASMA 107 98 - 107 08/26 Specimen Type: PLASMA No comment entered. Ordering Provider: Yahaira TRIMBLE Report Released Date/Time: Aug 26, 2021 02:21 PM Reporting Lab: [facility] [address] Performing Lab: [facility] [address] [place] [facility] COMPREHEN SIVE METABOLIC PANEL+MG CARBON DIOXIDE, TOTAL [MOLES/VOLU ME] IN SERUM OR PLASMA 25 22 - 29 08/26 Specimen Type: PLASMA No comment entered. Ordering Provider: Yahaira TRIMBLE Report Released Date/Time: Aug 26, 2021 02:21 PM Reporting Lab: [facility] [address] Performing Lab: [facility] [address] [place] [facility] COMPREHEN SIVE METABOLIC PANEL+MG CALCIUM [MASS/VOLUM E] IN SERUM OR PLASMA 9.9 8.4 - 10.2 08/26 Specimen Type: PLASMA No comment entered. Ordering Provider: Yahaira TRIMBLE Report Released Date/Time: Aug 26, 2021 02:21 PM Reporting Lab: [facility] [address] Performing Lab: [facility] [address] [place] [facility] COMPREHEN SIVE METABOLIC PANEL+MG PROTEIN [MASS/VOLUM E] IN SERUM OR PLASMA 7.8 6.0 - 8.3 08/26 Specimen Type: PLASMA No comment entered. Ordering Provider: Yahaira TRIMBLE Report Released Date/Time: Aug 26, 2021 02:21 PM Reporting Lab: [facility] [address] Performing Lab: [facility] [address] [place] [facility] COMPREHEN SIVE METABOLIC PANEL+MG ALBUMIN [MASS/VOLUM E] IN SERUM OR PLASMA 4.6 3.5 - 5.2 08/26 Specimen Type: PLASMA No comment entered. Ordering Provider: Yahaira TRIMBLE Report Released Date/Time: Aug 26, 2021 02:21 PM Reporting Lab: [facility] [address] Performing Lab: [facility] [address] [place] [facility] COMPREHEN SIVE METABOLIC PANEL+MG BILIRUBIN.T OTAL [MASS/VOLUM E] IN SERUM OR PLASMA 0.8 0.2 - 1.2 08/26 Specimen Type: PLASMA No comment entered. Ordering Provider: Yahaira TRIMBLE Report Released Date/Time: Aug 26, 2021 02:21 PM Reporting Lab: [facility] [address] Performing Lab: [facility] [address] [place] [facility] COMPREHEN SIVE METABOLIC PANEL+MG MAGNESIUM [MASS/VOLUM E] IN SERUM OR PLASMA 2.1 1.6 - 2.6 08/26 Specimen Type: PLASMA No comment entered. Ordering Provider: Yahaira TRIMBLE Report Released Date/Time: Aug 26, 2021 02:21 PM Reporting Lab: [facility] [address] Performing Lab: [facility] [address] [place] [facility] COMPREHEN SIVE METABOLIC PANEL+MG ANION GAP IN SERUM OR PLASMA 7 5 - 15 08/26 Specimen Type: PLASMA No comment entered. Ordering Provider: Yahaira TRIMBLE Report Released Date/Time: Aug 26, 2021 02:21 PM Reporting Lab: [facility] [address] Performing Lab: [facility] [address] [place] [facility] COMPREHEN SIVE METABOLIC PANEL+MG ALKALINE PHOSPHATASE [ENZYMATIC ACTIVITY/VO LUME] IN SERUM OR PLASMA 90 40 - 150 08/26 Specimen Type: PLASMA No comment entered. Ordering Provider: Yahaira TRIMBLE Report Released Date/Time: Aug 26, 2021 02:21 PM Reporting Lab: [facility] [address] Performing Lab: [facility] [address] [place] [facility] COMPREHEN SIVE METABOLIC PANEL+MG ALANINE AMINOTRANSF ERASE [ENZYMATIC ACTIVITY/VO LUME] IN SERUM OR PLASMA 11 <55 - 55 08/26 Specimen Type: PLASMA No comment entered. Ordering Provider: Yahaira TRIMBLE Report Released Date/Time: Aug 26, 2021 02:21 PM Reporting Lab: [facility] [address] Performing Lab: [facility] [address] [place] [facility] COMPREHEN SIVE METABOLIC PANEL+MG ASPARTATE AMINOTRANSF ERASE [ENZYMATIC ACTIVITY/VO LUME] IN SERUM OR PLASMA 15 <34 - 34 08/26 Specimen Type: PLASMA No comment entered. Ordering Provider: Yahaira TRIMBLE Report Released Date/Time: Aug 26, 2021 02:21 PM Reporting Lab: [facility] [address] Performing Lab: [facility] [address] [place] [facility] COMPREHEN SIVE METABOLIC PANEL+MG GLOMERULAR FILTRATION RATE/1.73 SQ M.PREDICTED [VOLUME RATE/AREA] IN SERUM OR PLASMA BY CREATININE- BASED FORMULA (MDRD) 28 60 08/26 L Specimen Type: PLASMA No comment entered. Ordering Provider: Yahaira TRIMBLE Report Released Date/Time: Aug 26, 2021 02:21 PM Reporting Lab: [facility] [address] Performing Lab: [facility] [address] [place] [facility] SED RATE ERYTHROCYTE SEDIMENTATI ON RATE 33 5 - 15 08/26 H Specimen Type: BLOOD No comment entered. Ordering Provider: Yahaira TRIMBLE Report Released Date/Time: Aug 26, 2021 02:21 PM Reporting Lab: [facility] [address] Performing Lab: [facility] [address] [place] [facility] Vital Signs Combined list of inpatient and outpatient Vital Signs from Department of [facility] and Veterans Affairs, ranging from 12 months to all on record, depending upon the facility. Vital Sign Value Date Comments Source Encounters Combined list of: 1) Encounters from Department of Veterans Affairs facilities going back up to thelast 18 months. 2) Encounters from the Department of Defense facilities going back up to 280 months. Location Location Details Encounter Type Encounter Number Reason For Visit Attending Provider ADM Date DC Date Status Disposition Source [facility] O/P EST HI 40-54 MIN [id number] Diagnos is: ICD-10- CM Z00.01 Encount er for general adult medical exam w abnorma l finding s
TARAH AVILES S 08/14 [facility] [place] [facility] Outpatient Encounter [id number] [facility] [place] [facility] Outpatient Encounter [id number] 12/[address] [place] [facility] [place] [facility] Outpatient Encounter [id number] 01/19 [facility] [place] [facility] PRO PHONE CALL 5-10 MIN [id number] Diagnos is: ICD-10- CM Z71.9 Hadoop Consultant ing, unspeci fied
JUNIOR JACKSON 01/20 [facility] Social History Combined list of available smoking, tobacco, and other social history from Department of Defense and Veterans Affairs facilities. Social History Type Response Date Comment Sourc e Tobacco smoking status NHIS VA-TOBACCO FORMER USER 11/15/2021 [facility] History of tobacco use FL-TOBACCO QUIT 5 TO < 15 YRS 11/15/2021 [facility] History of tobacco use [place]-TOBACCO FORMER USER 01/09/2021 [facility] This section is an empty social history section. DoD
--- OUTSIDE RECORDS SUMMARY | 2023-06-12 11:29 | XMS_ITS | Clinical Summary ---
Author Name Unknown Organization [facility] Address [address] [place] [address]. [place] [address] Care Team Providers Care Inward Toll Operator Name Role Phone Oren Marshall MD Primary Care Provider [phone] Allergies Active Allergy Reactions Criticality Noted Date [...] 10/16/2015 8:44 AM CDT Plan of Treatment Health Maintenance Due Date Last Done Comments ADVANCE CARE PLANNING 1945 ANNUAL REVIEW OF HM ORDERS 1947 CT COLONOGRAPHY 1947 FIT 1947 FLEX SIG 1947 LIPID 1947 sDNA (Cologuard) 1945 COLONOSCOPY 11/24/1957 COLORECTAL CANCER SCREENING 11/24/1957 HEPATITIS C SCREENING 11/24/1965 LUNG CANCER SCREENING 11/24/1997 RSV VACCINE ( & 60+) (1 - 1-dose 60+ series) 2007 FALL RISK ASSESSMENT 11/24/2012 MEDICARE ANNUAL WELLNESS VISIT 11/24/2012 GLUCOSE 10/15/2018 10/16/2015 COVID-19 Vaccine (2022- season) 2022 12/03/2021, 08/12/2021, 01/08/2021, Additional history exists INFLUENZA VACCINE (#1) 2022 2, 11/30/2020, 11/23/2018, Additional history exists PHQ-2 (once per calendar year) 2023 DTAP/TDAP/TD IMMUNIZATION (3 - Td or Tdap) 02/24/2027 02/24/2017, 08/09/2004, 08/09/2004 Pneumococcal Vaccine: 65+ Years Completed 11/23/2018, 02/24/2017 ZOSTER IMMUNIZATION Completed 11/06/2021, 2 HPV IMMUNIZATION Aged Out No longer e ligible based on patient's age to complete this topic IPV IMMUNIZATION Aged Out No longer e ligible based on patient's age to complete this topic MENINGITIS IMMUNIZATION Aged Out No l onger eligible based on patient's age to complete this topic RSV MONOCLONAL ANTIBODY Aged Out No l onger eligible based on patient's age to complete this topic Procedures Procedure Name Priority Date/Time Associated Diagnosis Comments GLUCOSE BY METER Routine 10/16/2015 3:42 PM CDT Prostate CA (H) from Last 3 Months or Most Recently Relevant to Health Maintenance Results * Glucose by meter (10/16/2015 3:42 PM CDT) Glucose 88 70 - 99 mg/dL POINT OF CARE TEST, GLUCOSE 10/16/2015 3:42 PM CDT 10/16/2015 3:45 PM CDT Xavier Ahmadi MD [facility] POCT POINT OF CARE TEST, GLUCOSE from Last 3 Months or Most Recently Relevant to Health Maintenance Advance Directives For more information, please contact: [phone] * Full Code (Latest Code Status on File) Date Activated Date Inactivated Comments 10/16/2015 7:06 PM 10/17/2015 3:07 PM Care Teams Inward Toll Operator Relationship Specialty Start Date End Date Oren Marshall MD [facility] [address] [place] [address] PCP - General Family Practice 10/01/15
== END 2023-06-12 11:25 | disposition home or self-care (01) ==
PROVIDERS: PCP Family Medicine; Visit Provider Family Medicine
DX: E78.5 Hyperlipidemia, unspecified (principal); I10 Essential (primary) hypertension; C61 Malignant neoplasm of prostate
CPT/HCPCS: 80048; 80061; 84153

== ENCOUNTER 2023-09-01 13:43 | Outpatient (CLI) | payer MEDICARE, OTHER, SELFPAY | END 2023-09-01 13:44 | disposition home or self-care (01) | PROVIDERS: PCP Family Medicine; Visit Provider Family Medicine | DX: Z01.818 Encounter for other preprocedural examination (principal); I10 Essential (primary) hypertension; I48.91 Unspecified atrial fibrillation; Z13.29 Encounter for screening for other suspected endocrine disorder | CPT/HCPCS: 80048; 84443 ==

== ENCOUNTER 2023-09-11 13:40 | Outpatient (CLI) | payer MEDICARE, OTHER, SELFPAY ==
--- OUTSIDE RECORDS SUMMARY | 2023-09-11 13:43 | XMS_ITS | Encounter Summary ---
Author Name [facility] [facility] Address [address] [place] [address] Care Team Providers Care Clinical Staff Rn Name Role Phone MIGUEL ANGEL AVILES Primary Care Provider Unavailfarideh e Insurance Providers: All historical and current Section Date Range: From patient's date of to the date document was created. This section includes the names of all active insurance providers for the patient. Insurance Provider Type of Coverage Plan Name Start of Policy Coverage End of Policy Coverage Group Number Member ID Insurance Provider's Telephone Number Policy Garnica's Name Patient's Relationship to Policy Garnica MEDICARE (WNR) MEDICARE ([place]) PART A Nov 16, 2012 PART A [id number] SAUL METZGER JR PATIENT MEDICARE (WNR) MEDICARE ([place]) PART B Nov 16, 2012 PART B [id number] [phone] SAUL METZGER JR PATIENT Selected Encounter This section includes the information on record at [place] for the Encounter. Date/Time Encounter Type Encounter Description Reason Pro vider Source Aug 27, 2023 12:21 PM Outpatient Encounter PRIMARY CARE/MEDICINE IHE Encounter Template Text not used by [place] Plan of Treatment: Future Appointments (+ 6 months) and Future Tests (+/- 45 days) The Plan of Treatment section includes future care activities for the patient from all [facility] treatment[facility]ilities. This section includes future appointments and future orders which are active, pending or scheduled. Future Appointments This section includes appointments that were scheduled to occur 6 months from the date of the Encounter, up to a maximum of 20 appointments. The data comes from all [facility]. Appointment Date/Time Appointment Type Appointme nt Facility Name Sep 07, 2023 09:30 AM AMBULATORY - MEDICINE [facility] Active, Pending, and Scheduled Orders This section includes a listing of several types of active, pending, and scheduled orders, including clinic medications orders, diagnostic test orders, procedure orders and consult orders; where the start date of the order is 45 days before the date of the Encounter or 45 days after the date of theEncounter. The data comes from all [facility]. Test Date/Time Test Type Test Details Facility Name Sep 07, 2023 10:43 AM Pharmacy - Clinic Medication Ord janet [facility] Social History: Smoking Status (Most current) and Tobacco Use (All prior to encounter date) This section includes the most current, and the historical, smoking and tobacco- related health factors from the [place] facility where the Encounter took place. Current Smoking Status This section includes the most current smoking, or tobacco-related health factor, from the [place] facility where the Encounter took place. Date/Time Current Smoking Status Comment Facil ity Jan 09, 2021 12:30 PM VA-TOBACCO FORMER USER [facility] Tobacco Use History This section includes a history of the smoking, or tobacco-related health factors, that were collected on or before the date of the Encounter. The data comes from the [place] facility where the Encounter took place. Date/Time Smoking Status/Tobacco Use Comment F acility Jan 09, 2021 12:30 PM VA-TOBACCO QUIT 5 TO < 15 YRS [facility] Encounter Notes: All associated encounter notes This section contains the clinical notes associated to the Encounter. Date/Time Encounter Note(s) Provider Source Aug 27, 2023 12:21 PM REPORT OF CONTACT: LOCAL TITLE: PATIENT CONTACT NOTE STANDARD TITLE: REPORT OF CONTACT DATE OF NOTE: AUG 27, 2023@12:21 ENTRY DATE: AUG 27, 2023@12:21:33 AUTHOR: GABI SALCEDO COSIGNER: URGENCY: STATUS: COMPLETED Patient contact Name of : SAUL METZGER JR Name/Relationship of Contact if other than [place]: Date & Time of Contact: Aug@12:21 Type of Contact: In person Reason for Contact: [place] would like to speak to social media manager in regards to some home care, he is having sx 09/15/23. He can be reached at [phone] /miki/ [facility] Signed: 08/27/2023 12:22 Receipt Acknowledged By: 08/31/2023 14:53 /es/ MARVIN ZAFAR [employer] GABI SALCEDO [facility]
--- OUTSIDE RECORDS SUMMARY | 2023-09-11 13:43 | XMS_ITS | Encounter Summary ---
Author Name [facility] Address [address] [place] [address] Care Team Providers Care Roll Threader Operator Name Role Phone MIGUEL ANGEL AVILES Primary [...] PART A Nov 16, 2012 PART A [id number] [phone] SAUL METZGER JR PATIENT MEDICARE (WNR) MEDICARE (M) PART B Nov 16, 2012 PART B [id number] [phone] SAUL METZGER JR PATIENT Selected Encounter This section includes the information on record at [facility] for the Encounter. Date/Time Encounter Type Encounter Description Reason Pro vider Source Aug 31, 2023 02:30 PM Outpatient Encounter TELEPHONE PRIMARY CARE IHE Encounter Template Text not used by [place] Plan of Treatment: Future Appointments (+ 6 [...] 20 appointments. The data comes from all [place] treatment facilities. Appointment Date/Time Appointment Type Appointme nt Facility Name Sep 07, 2023 09:30 AM AMBULATORY - MEDICINE [facility] Active, Pending, and Scheduled Orders This section includes a listing of several types of active, pending, and scheduled orders, including clinic medications orders, diagnostic test orders, procedure orders and consult orders; where the start date of the order is 45 days before the date of the Encounter or 45 days after the date of theEncounter. The data comes from all [facility] [place] facilities. Test Date/Time Test Type Test Details Facility Name Sep 07, 2023 10:43 AM Pharmacy - Clinic Medication Ord er [facility] Social History: Smoking Status (Most current) and Tobacco Use (All prior to encounter date) This section includes the most current, and the historical, smoking and tobacco- related health factors from the [place] facility where the Encounter took place. Current Smoking Status This section includes the most current smoking, or tobacco-related health factor, from the [place] facility where the Encounter took place. Date/Time Current Smoking Status Comment Facil ity Nov 15, 2021 01:00 PM VA-TOBACCO FORMER USER [facility] Tobacco Use History This section includes a history of the smoking, or tobacco-related health factors, that were collected on or before the date of the Encounter. The data comes from the [place] facility where the Encounter took place. Date/Time Smoking Status/Tobacco Use Comment F acility Nov 15, 2021 01:00 PM VA-TOBACCO QUIT 5 TO < [address] [facility] Encounter Notes: All associated encounter notes This section contains the clinical notes associated to the Encounter. Date/Time Encounter Note(s) Provider Source Aug 31, 2023 02:30 PM SOCIAL WORK NOTE: LOCAL TITLE: SOCIAL WORK PROGRESS NOTE STANDARD TITLE: SOCIAL WORK NOTE DATE OF NOTE: AUG 31, 2023@14:30 ENTRY DATE: AUG 31, 2023@14:54:08 AUTHOR: ALLEN BRADEN COSIGNER: URGENCY: STATUS: COMPLETED Referral Source: [facility], [place] Presenting Issue: home care Brief Summary: would like to speak to dialysis social worker in regards to some home care, he is having sx 09/15/23. He can be reached at [phone] Social Work Intervention and Plan: Spoke to [place] via telephone. 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 [place] has been receiving care from [facility] at clinics in [place] and [place]. inquiring about where is best care for him (VA vs community) and easiest for his . [place] is most concerned about custodial care related to his kidney failure. Briefly reviewed [facility] copays, Medicare and VA home care, [facility] eligibility, pros/cons of changing health care providers, [employer] for assistance with VBA claim. aware any increased C&P benefit would be offset against his chcf and isn't concerned about financial benefits. Encouraged to discuss potential dependent benefits with [employer]. appreciative of information. PCSW remains available. Call time: 19 minutes Dx: Z65.8 Other problem related to psychosocial circumstances /es/ MARVIN ZAFAR [employer] Warden Signed: 08/31/2023 15:19 ALLEN BRADEN
--- OUTSIDE RECORDS SUMMARY | 2023-09-11 13:43 | XMS_ITS | Continuity of Care Document ---
Author Name [facility] Organization [facility] Care Team Providers Care Rake Operator Name Role Phone [facility] Unavailable Unavailable Problems Combined list of problems from Department of Defense and Veterans Affairs facilities. It does not include entries that were removed or entered in error. Problem Status Onset Date Problem Type Date of Resolution Comments Source Exposure to potentially hazardous substance ([facility] [id number]) Active 024 Condition Apr 24, 2023 Entered By: GUADALUPE ANTONY Comment: [facility]IE Documentation Initiative [facility] Abdominal aortic aneurysm Active Condition Sep 07, 2023 Entered By: MIGUEL ANGEL AVILES Comment: INFRARENAL AA 4.4cm noted on PET on 08/18/2023Jul 2023 Entered By: MIGUEL ANGEL AVILES Comment: Managed by ,faraz nunezk DUE 2024 & vascular surg if >5.0cm [facility] AF-Atrial Fibrillation (SCT [id number]) Active Condition Sep 07, 2023 Entered By: MIGUEL ANGEL AVILES Comment: Currently on metoprolol and aspirin pending prostate procedures [facility] Body mass index 30+ - obesity Active Condition [facility] CAD - Coronary Artery Disease (SCT [id number]) Active Condition Sep 07, 2023 Entered By: MIGUEL ANGEL AVILES Comment: [place] reports PET scan showing calcification at [facility] 2023 Entered By: MIGUEL ANGEL AVILES Comment: ECHO from [place] 2021; Stress ECG negative for ischemia. [facility] Chronic kidney disease stage 4 Active Condition Sep 07, 2023 Entered By: MIGUEL ANGEL AVILES Comment: Left renal CYST Noted on PET scan08/18/23 at [facility] 2023 Entered By: MIGUEL ANGEL AVILES Comment: Managed by [facility] in [facility] Depression (SCT [id number]) Active Condition Sep 07, 2023 Entered By: MIGUEL ANGEL AVILES Comment: MANAGED BY , Currently Buspar &Sertraline [facility] Dyspnea Active Condition Aug 27 Entered By: MIGUEL ANGEL AVILES Comment: [facility] obstructionJul 2021 Entered By: MIGUEL ANGEL AVILES Comment: [place] been seen by [place] whitewasher, PFTs there normal with recs to STOP [...] stopped due to SOB and leg weakness [facility] Ex-tobacco chewer Active Condition Ju n 2021 Entered By: MIGUELA NGEL AVILES Comment: has smoked Cigars from 0958-0964, then chewed tobacco to quit in 2014 [facility] Family social history Active Condition Aug 12, 2021 Entered By: MIGUEL ANGEL AVILES Comment: Smoked Cigars from 3195-4620, then chewed tobacco to quit in 2014Jun 2021 Entered By: MIGUEL ANGEL AVILES Comment: 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 [employer]Jun 2021 Entered By: MIGUEL ANGEL AVILES Comment: One brother and One sisterJun 2021 Entered By: MIGUEL ANGEL AVILES Comment: Grew up with a bed [facility] Entered By: MIGUEL ANGEL AVILES Comment: Dad of colon cancer surgery had a pad left behind at age 64Jun 2021 Entered By: MIGUEL ANGEL AVILES Comment: Mom was smoker and was life long Alcoholic at age 66Jun 2021 Entered By: MIGUEL ANGEL AVILES Comment: Biological Daughter has MS and lives with themJun 2021 Entered By: MIGUEL ANGEL AVILES Comment: Able to drive, grocery shopping, cooks with , does laundry, he does yard workJun 2021 Entered By: MIGUEL ANGEL AVILES Comment: Snow work is hired outJun 2021 Entered By: MIGUEL ANGEL AVILES Comment: was deployed to [place]([facility] area) [place] 2021 Entered By: MIGUEL ANGEL AVILES Comment: Alcohol 1-2 beers a year [facility] GERD - Gastro-Esophageal Reflux Disease ([facility] [id number]) Active Condition [facility] H/O: surgery Active Condition Aug 12, [...] 10 YRS and wants to stop screening [facility] HTN - Hypertension (SCT [id number]) Active Condition Sep 07, 2023 Entered By: MIGUEL ANGEL AVILES Comment: TOTAL SC 20%:HYPERTENSIV E VASCULAR DISEASE (10%-SC) [facility] Hyperlipidemia (SCT [id number]) Active Condition [facility] left orbital mass Active Condition Ju 2021 Entered By: MIGUEL ANGEL AVILES Comment: Thought to be benign, 02/09/2020 CT done at [place] shows it was in left upper lid without involving the globe [facility] Left ventricular hypertrophy Active Condition [facility] Osteoarthritis Active Condition Aug 172023 Entered By: MIGUEL ANGEL AVILES Comment: TOTAL SC 20%;ARTHRITIS, DEGENERATIVE (10%-SC) [facility] Prostate Cancer (SCT [id number]) Active Condition Aug 12, 2021 Entered By: MIGUEL ANGEL AVILES Comment: S/P CRYOTHERAPYJul 2023 Entered By: MIGUEL ANGEL AVILES Comment: Managed by [facility] Secondary Hyperparathyroidism of Renal Origin (SCT [id number]) Active Condition [facility] Visual impairment Active Condition [facility] 2021 Entered By: MIGUEL ANGEL AVILES Comment: from previous STROKE, Blurry and lost peripheral vision for 1 week and gradually better now [facility] Diagnosis: ICD-10-CM Z00.01 Encounter for general adult medical exam w abnormal findings Active Diagnosis [facility] Diagnosis: ICD-10-CM Z71.9 Counseling, unspecified Active Diagnosis [facility] Medications Combined list of outpatient medications from Department of Defense and Veterans Affairs facilities.Medications provided include 1) outpatient medications from the last 15 months, and 2) patient-reported medications. Medication Details Route Status Patient Instructions Prescription Expires Prescription Number Last Dispense Date Ordering Provider Order Date Order Qty Source AMLODIPINE BESYLATE (amlodipine besylate), 5 MG, TABLET, ORAL, AVKARE, 1000 ea. BOTTLE Active [id number] 2022 90 Pharmac y Data Transac tion Service Facilit y AMLODIPINE BESYLATE (AMLODIPINE BESYLATE), 5 MG, TABLET, ORAL, EXELAN PHARMACE, 1000 ea. BOTTLE Cancele d [id number] : 2023 0 Pharmac y Data Transac tion Service Facilit y AMLODIPINE BESYLATE (AMLODIPINE BESYLATE), 5 MG, TABLET, ORAL, EXELAN PHARMACE, 1000 ea. BOTTLE Active [id number] 2023 90 Pharmac y Data Transac tion Service Facilit y AMLODIPINE BESYLATE (AMLODIPINE BESYLATE), 5 MG, TABLET, ORAL, EXELAN PHARMACE, 1000 ea. BOTTLE Active [id number] 4 2023 90 Pharmac y Data Transac tion Service Facilit y AMLODIPINE BESYLATE 10MG TAB AMLODIPI NE BESYLATE 10MG TAB Non-VA TAKE ONE-HALF TABLET BY MOUTH EVERY EVENING Aug 12, 2021 Non-VA Document ed by: KEVIN AVILES Document ed at: [facility] ORAL ACTIVE VIVIAN AVILES 2021 [facility] ASPIRIN 81MG TAB,EC ASPIRIN 81MG TAB,EC Non-VA TAKE ONE TABLET BY MOUTH EVERY DAY Aug 12, 2021 Non-VA Document ed by: KEVIN AVILES Document ed at: [facility] ORAL ACTIVE VIVIAN AVILES 2021 [facility] ATORVASTATI N [place] 40MG TAB ATORVAST ATIN [place] 40MG TAB Non-VA TAKE ONE-HALF TABLET BY MOUTH EVERY DAY Aug 12, 2021 Non-VA Document ed by: KEVIN AVILES Document ed at: [facility] ORAL ACTIVE VIVIAN AVILES 2021 [facility] ATORVASTATI N CALCIUM (ATORVASTAT IN CALCIUM), 20 MG, TABLET, ORAL, APOTEX DARCI, 1000 ea. BOTTLE Active [id number] 2023 90 Pharmac y Data Transac tion Service Facilit y ATORVASTATI N CALCIUM (atorvastat in calcium), 20 MG, TABLET, ORAL, ERMIAS PHARMACEU, 500 ea. BOTTLE Cancele d [id number] : 2023 0 Pharmac y Data Transac tion Service Facilit y ATORVASTATI N CALCIUM (atorvastat in calcium), 20 MG, TABLET, ORAL, ERMIAS PHARMACEU, 500 ea. BOTTLE Active [id number] 2023 90 Pharmac y Data Transac tion Service Facilit y ATORVASTATI N CALCIUM (atorvastat in calcium), 20 MG, TABLET, ORAL, ERMIAS PHARMACEU, 500 ea. BOTTLE Active [id number] 2023 90 Pharmac y Data Transac tion Service Facilit y BUSPIRONE HCL (buspirone HCl), 5 MG, TABLET, ORAL, [employer] 500 ea. BOTTLE Cancele d [id number] : 2023 0 Pharmac y Data Transac tion Service Facilit y BUSPIRONE HCL (buspirone HCl), 5 MG, TABLET, ORAL, [employer] 500 ea. BOTTLE Active [id number] 2023 180 Pharmac y Data Transac tion Service Facilit y BUSPIRONE HCL (buspirone HCl), 5 MG, TABLET, ORAL, [employer] 500 ea. BOTTLE Active [id number] 2023 180 Pharmac y Data Transac tion Service Facilit y BUSPIRONE HCL (buspirone HCl), 5 MG, TABLET, ORAL, [employer] 500 ea. BOTTLE Active [id number] 2023 180 Pharmac y Data Transac tion Service Facilit y BUSPIRONE HCL 5MG TAB BUSPIRON E HCL 5MG TAB Non-VA TAKE ONE TABLET BY MOUTH TWICE A DAY FOR ANXIETY Sep 07, 2023 Non-VA Document ed by: KEVIN AVILES Document ed at: [facility] ORAL ACTIVE VIVIAN AVILES 2023 [facility] COMBIVENT RESPIMAT (IPRATROPIU M/ALBUTEROL SULFATE), 20-100 MCG, MIST INHAL, INHALATION, BOEHRINGER ING., 4 g AER W/ADAP Active [id number] 2023 12 Pharmac y Data Transac tion Service Facilit y COMBIVENT RESPIMAT (IPRATROPIU M/ALBUTEROL SULFATE), 20-100 MCG, MIST INHAL, INHALATION, BOEHRINGER ING., 4 g AER W/ADAP Active [id number] 2023 12 Pharmac y Data Transac tion Service Facilit y LISINOPRIL (lisinopril ), 20 MG, TABLET, ORAL, EXELAN PHARMACE, 1000 ea. BOTTLE Cancele d [id number] : 2023 0 Pharmac y Data Transac tion Service Facilit y LISINOPRIL (lisinopril ), 20 MG, TABLET, ORAL, EXELAN PHARMACE, 1000 ea. BOTTLE Active [id number] 2023 90 Pharmac y Data Transac tion Service Facilit y LISINOPRIL (lisinopril ), 20 MG, TABLET, ORAL, EXELAN PHARMACE, 1000 ea. BOTTLE Active [id number] 2023 90 Pharmac y Data Transac tion Service Facilit y LISINOPRIL 40MG TAB LISINOPR [place] 40MG TAB Non-VA TAKE ONE-HALF TABLET BY MOUTH Aug 12, 2021 Non-VA Document ed by: KEVIN AVILES Document ed at: [facility] ORAL ACTIVE VIVIAN AVILES S 2021 [facility] METOPROLOL SUCCINATE (metoprolol succinate), 100 MG, TAB ER 24H, ORAL, [employer] 1000 ea. BOTTLE Active [id number] 2023 90 Pharmac y Data Transac tion Service Facilit y METOPROLOL SUCCINATE (metoprolol succinate), 100 MG, TAB ER 24H, ORAL, [employer] 1000 ea. BOTTLE Active [id number] 2023 90 Pharmac y Data Transac tion Service Facilit y METOPROLOL SUCCINATE 50MG TAB,SA METOPROL OL SUCCINAT E 50MG TAB,SA Non-VA TAKE THREE TABLETS BY MOUTH EVERY DAY FOR ATRIAL FIBRILLA TION Sep 07, 2023 Non-VA Document ed by: KEVIN AVILES S Document ed at: [facility] ORAL ACTIVE VIVIAN AVILES S 2023 [facility] NON VA MED NOT LISTED NON VA MED NOT LISTED Non-VA USE CITALOPR AM HYDROBRO MIDE MOUTH Aug 12, 2021 Non-VA Document ed by: KEVIN AVILES Document ed at: [facility] ORAL ACTIVE VIVIAN AVILES 2021 CHANDANA HERRERA NON VA MED NOT LISTED NON VA MED NOT LISTED Non-VA USE IPRATROP IUM-ALBU TEROL (COMBIVE NT RESPIMAT ) 20-100 MCG/ACT INHALER MOUTH FOUR TIMES A DAY Aug 12, 2021 Non-VA Document ed by: KEVIN AVILES Document ed at: [facility] ORAL ACTIVE VIVIAN AVILES 2021 CHANDANA HERRER[facility] OMEPRAZOLE 20MG CAP,EC OMEPRAZO LE 20MG CAP,EC Non-VA TAKE 1 CAPSULE BY MOUTH EVERY DAY Aug 12, 2021 Non-VA Document ed by: KEVIN AVILES Document ed at: [facility] ORAL ACTIVE VIVIAN AVILES 2021 [facility] SERTRALINE HCL (SERTRALINE HCL), 100 MG, TABLET, ORAL, EXELAN PHARMACE, 500 ea. BOTTLE Active [id number] 2023 135 Pharmac y Data Transac tion Service Facilit y SERTRALINE HCL (SERTRALINE HCL), 100MG, TABLET, ORAL, LUPIN PHARMACEU, 500 ea. BOTTLE Active [id number] 2023 90 Pharmac y Data Transac tion Service Facilit y SERTRALINE HCL (SERTRALINE HCL), 100MG, TABLET, ORAL, LUPIN PHARMACEU, 500 ea. BOTTLE Cancele d [id number] : 2023 0 Pharmac y Data Transac tion Service Facilit y SERTRALINE HCL (SERTRALINE HCL), 100MG, TABLET, ORAL, LUPIN PHARMACEU, 500 ea. BOTTLE Cancele d [id number] : 2023 0 Pharmac y Data Transac tion Service Facilit y SERTRALINE HCL (sertraline HCl), 50 MG, TABLET, ORAL, EXELAN PHARMACE, 180 ea. BOTTLE Cancele d [id number] : 2023 0 Pharmac y Data Transac tion Service Facilit y SERTRALINE HCL (SERTRALINE HCL), 50 MG, TABLET, ORAL, EXELAN PHARMACE, 500 ea. BOTTLE Active [id number] 2023 180 Pharmac y Data Transac tion Service Facilit y SERTRALINE HCL 100MG TAB SERTRALI NE HCL 100MG TAB Non-VA TAKE ONE TABLET BY MOUTH EVERY MORNING Aug 12, 2021 Non-VA Document ed by: KEVIN AVILES Document ed at: [facility] ORAL ACTIVE VIVIAN AVILES 2021 CHANDANA HERRER[facility] TAMSULOSIN HCL 0.4MG CAP TAMSULOS IN HCL 0.4MG CAP Non-VA TAKE 1 CAPSULE BY MOUTH Aug 12, 2021 Non-VA Document ed by: KEVIN AVILES Document ed at: [facility] ORAL ACTIVE VIVIAN AVILES 2021 [facility] TIZANIDINE HCL (TIZANIDINE HCL), 4MG, TABLET, ORAL, APOTEX DARCI, 150 ea. BOTTLE Cancele d [id number] : 2023 0 Pharmac y Data Transac tion Service Facilit y TIZANIDINE HCL (TIZANIDINE HCL), 4MG, TABLET, ORAL, APOTEX DARCI, 150 ea. BOTTLE Active [id number] 2023 270 Pharmac y Data Transac tion Service Facilit y TIZANIDINE HCL (TIZANIDINE HCL), 4MG, TABLET, ORAL, APOTEX DARCI, 150 ea. BOTTLE Active [id number] 2023 270 Pharmac y Data Transac tion Service Facilit y TIZANIDINE HCL (TIZANIDINE HCL), 4MG, TABLET, ORAL, APOTEX DARCI, 150 ea. BOTTLE Active [id number] 2023 270 Pharmac y Data Transac tion Service Facilit y TIZANIDINE HCL 4MG TAB TIZANIDI NE HCL 4MG TAB Non-VA TAKE ONE TABLET BY MOUTH EVERY 8 HOURS NEEDED Aug 12, 2021 Non-VA Document ed by: KEVIN AVILES Document ed at: [facility] ORAL ACTIVE VIVIAN AVILES 2021 [facility] Allergies, Adverse Reactions, Alerts Combined list of allergies from Department of Defense and Veterans Affairs facilities. It does not include entries that were removed or entered in error. Substance Category Reaction Severity Reaction type Status Date Reported Comments Source ISONIAZID Drug allergy (disorder) Urticaria active 2 [facility] Immunizations Combined list of available immunizations from the Department of Defense and Veterans Affairs facilities. Immunization Series Date Given Administered By Site Reaction Lot Number CVX Code Drug Linux Admin Status Comments Source COVID-19 ([facility]), MRNA, LNP-S, PF, LUZ-SUCROSE, 30 MCG/0.3 ML (AGES 12+ YEARS) 2022 309 complet ed [facility] INFLUENZA, HIGH-DOSE, QUADRIVALENT 2022 197 complet ed [facility] COVID-19 ([facility]), MRNA, LNP-S, BIVALENT BOOSTER, PF, 30 MCG/0.3 ML DOSE 1 2021 300 complet ed PFR; [id number]; 3 [facility] INFLUENZA VACCINE, QUADRIVALENT, ADJUVANTED 2021 205 complet ed [facility] ZOSTER RECOMBINANT 2 2021 187 complet ed [facility] ZOSTER RECOMBINANT 1 2021 187 complet ed [facility] COVID-19 ([facility]), MRNA, LNP-S, PF, 30 MCG/0.3 ML DOSE, LUZ-SUCROSE (AGES 12+ YEARS) 4 2021 217 complet ed PFR; [id number]; 2 [facility] COVID-19 ([facility]), MRNA, LNP-S, PF, 30 MCG/0.3 ML DOSE 3 2020 208 complet ed PFR; [id number]; 2 [facility] INFLUENZA, UNSPECIFIED FORMULATION 2020 88 complet ed [facility] COVID-19 ([facility]), MRNA, LNP-S, PF, 30 MCG/0.3 ML DOSE 2 2020 208 complet ed PFR; [id number]; 1 [facility] COVID-19 ([facility]), MRNA, LNP-S, PF, 30 MCG/0.3 ML DOSE 2020 208 complet ed [facility] COVID-19 ([facility]), MRNA, LNP-S, PF, 30 MCG/0.3 ML DOSE 1 2020 208 complet ed PFR; [id number]; 1 [facility] COVID-19 ([facility]), MRNA, LNP-S, PF, 30 MCG/0.3 ML DOSE 2020 208 complet ed [facility] INFLUENZA, HIGH DOSE SEASONAL 2018 135 complet ed [facility] PNEUMOCOCCAL POLYSACCHARID E PPV23 2018 33 complet ed MIIC [facility] INFLUENZA, HIGH DOSE SEASONAL 2017 135 complet ed [facility] PNEUMOCOCCAL CONJUGATE PCV 13 2017 133 complet ed [facility] TDAP 2017 115 complet ed [facility] INFLUENZA, SEASONAL, INJECTABLE 2014 141 complet ed [facility] INFLUENZA, SEASONAL, INJECTABLE 2014 141 complet ed [facility] INFLUENZA, UNSPECIFIED FORMULATION 2008 88 complet ed [facility] INFLUENZA, UNSPECIFIED FORMULATION 2007 88 complet ed [facility] INFLUENZA, UNSPECIFIED FORMULATION 2006 88 complet ed [facility] TD (ADULT), 2 LF TETANUS TOXOID, PRESERVATIVE FREE, ADSORBED 2004 09 complet ed [facility] TD(ADULT) UNSPECIFIED FORMULATION 2004 139 complet ed [facility] Results Combined list of recent chemistry, hematology and other laboratory results from Department of Defense and Veterans Affairs, ranging from 15 months to all on record, depending upon the facility. Order Name Results Value Reference Range Date Interpretation Specimen Comments Source CBC & DIFF LEUKOCYTES [#/VOLUME] IN BLOOD BY AUTOMATED COUNT 7.89 10*3/u L 4.0 - 11.0 10/22 Specimen Type: BLOOD Comment: Automated Differential Performed Ordering Provider: MIGUEL ANGEL AVILES Report Released Date/Time: Oct 18, 2021 12:21 PM Reporting Lab: [facility] [id number] Performing Lab: [facility] [address] [facility] CBC & DIFF ERYTHROCYTES [#/VOLUME] IN BLOOD BY AUTOMATED COUNT 4.56 10*6/u L 4.6 - 6.2 10/22 L Specimen Type: BLOOD Comment: Automated Differential Performed Ordering Provider: MIGUEL ANGEL AVILES Report Released Date/Time: Oct 18, 2021 12:21 PM Reporting Lab: [facility] [phone] Performing Lab: [facility] [address] [facility] CBC & DIFF HEMOGLOBIN [MASS/VOLUME ] IN BLOOD 14.0 g/dL 13.5 - 17.9 10/22 Specimen Type: BLOOD Comment: Automated Differential Performed Ordering Provider: MIGUEL ANGEL AVILES Report Released Date/Time: Oct 18, 2021 12:21 PM Reporting Lab: [facility] [address] Performing Lab: [facility] [address] [facility] CBC & DIFF HEMATOCRIT [VOLUME FRACTION] OF BLOOD BY AUTOMATED COUNT 42.3 41 - 54 10/22 Specimen Type: BLOOD Comment: Automated Differential Performed Ordering Provider: MIGUEL ANGEL AVILES Report Released Date/Time: Oct 18, 2021 12:21 PM Reporting Lab: [facility] [address] Performing Lab: [facility] [address] [facility] CBC & DIFF MCV [ENTITIC VOLUME] BY AUTOMATED COUNT 92.8 fL 80 - 100 10/22 Specimen Type: BLOOD Comment: Automated Differential Performed Ordering Provider: MIGUEL ANGEL AVILES Report Released Date/Time: Oct 18, 2021 12:21 PM Reporting Lab: [facility] [phone] Performing Lab: [facility] [address] [facility] CBC & DIFF MCH [ENTITIC MASS] BY AUTOMATED COUNT 30.7 pg 27 - 33 10/22 Specimen Type: BLOOD Comment: Automated Differential Performed Ordering Provider: MIGUEL ANGEL AVILES Report Released Date/Time: Oct 18, 2021 12:21 PM Reporting Lab: [facility] [phone] Performing Lab: [facility] [address] [facility] CBC & DIFF MCHC [MASS/VOLUME ] BY AUTOMATED COUNT 33.1 g/dL 32.0 - 37.5 10/22 Specimen Type: BLOOD Comment: Automated Differential Performed Ordering Provider: MIGUEL ANGEL AVILES Report Released Date/Time: Oct 18, 2021 12:21 PM Reporting Lab: [facility] [address] Performing Lab: [facility] [address] [facility] CBC & DIFF PLATELETS [#/VOLUME] IN BLOOD BY AUTOMATED COUNT 183 10*3/u L 150 - 400 10/22 Specimen Type: BLOOD Comment: Automated Differential Performed Ordering Provider: MIGUEL ANGEL AVILES Report Released Date/Time: Oct 18, 2021 12:21 PM Reporting Lab: [facility] [address] Performing Lab: [facility] [address] [facility] CBC & DIFF PLATELET MEAN VOLUME [ENTITIC VOLUME] IN BLOOD BY AUTOMATED COUNT 9.7 fL 7.4 - 10.4 10/22 Specimen Type: BLOOD Comment: Automated Differential Performed Ordering Provider: MIGUEL ANGEL AVILES Report Released Date/Time: Oct 18, 2021 12:21 PM Reporting Lab: [facility] [address] Performing Lab: [facility] [address] [facility] CBC & DIFF NEUTROPHILS/ 100 LEUKOCYTES IN BLOOD BY MANUAL COUNT 80.5 10/22 Specimen Type: BLOOD Comment: Automated Differential Performed Ordering Provider: MIGUEL ANGEL AVILES Report Released Date/Time: Oct 18, 2021 12:21 PM Reporting Lab: [facility] [address] Performing Lab: [facility] [address] [facility] CBC & DIFF LYMPHOCYTES/ 100 LEUKOCYTES IN BLOOD BY MANUAL COUNT 8.0 10/22 Specimen Type: BLOOD Comment: Automated Differential Performed Ordering Provider: MIGUEL ANGEL AVILES Report Released Date/Time: Oct 18, 2021 12:21 PM Reporting Lab: [facility] [address] Performing Lab: [facility] [address] [facility] CBC & DIFF MONOCYTES/10 0 LEUKOCYTES IN BLOOD BY AUTOMATED COUNT 7.5 10/22 Specimen Type: BLOOD Comment: Automated Differential Performed Ordering Provider: MIGUEL ANGEL AVILES Report Released Date/Time: Oct 18, 2021 12:21 PM Reporting Lab: [facility] [address] Performing Lab: [facility] [address] [facility] CBC & DIFF EOSINOPHILS/ 100 LEUKOCYTES IN BLOOD BY AUTOMATED COUNT 3.4 10/22 Specimen Type: BLOOD Comment: Automated Differential Performed Ordering Provider: MIGUEL ANGEL AVILES Report Released Date/Time: Oct 18, 2021 12:21 PM Reporting Lab: [facility] [address] Performing Lab: [facility] [address] [facility] CBC & DIFF BASOPHILS/10 0 LEUKOCYTES IN BLOOD BY MANUAL COUNT 0.5 10/22 Specimen Type: BLOOD Comment: Automated Differential Performed Ordering Provider: MIGUEL ANGEL AVILES Report Released Date/Time: Oct 18, 2021 12:21 PM Reporting Lab: [facility] [address] Performing Lab: [facility] [address] [facility] CBC & DIFF ERYTHROCYTE DISTRIBUTION WIDTH [RATIO] BY AUTOMATED COUNT 12.9 11.5 - 14.5 10/22 Specimen Type: BLOOD Comment: Automated Differential Performed Ordering Provider: MIGUEL ANGEL AVILES Report Released Date/Time: Oct 18, 2021 12:21 PM Reporting Lab: [facility] [address] Performing Lab: [facility] [address] [facility] CBC & DIFF LYMPHOCYTES [#/VOLUME] IN BLOOD BY AUTOMATED COUNT 0.63 10*3/u L 1.0 - 4.0 10/22 L Specimen Type: BLOOD Comment: Automated Differential Performed Ordering Provider: MIGUEL ANGEL AVILES Report Released Date/Time: Oct 18, 2021 12:21 PM Reporting Lab: [facility] [address] Performing Lab: [facility] [address] [facility] CBC & DIFF MONOCYTES [#/VOLUME] IN BLOOD BY AUTOMATED COUNT 0.59 10*3/u L 0.1 - 1.0 10/22 Specimen Type: BLOOD Comment: Automated Differential Performed Ordering Provider: MIGUEL ANGEL AVILES Report Released Date/Time: Oct 18, 2021 12:21 PM Reporting Lab: [facility] [address] Performing Lab: [facility] [address] [facility] CBC & DIFF NEUTROPHILS [#/VOLUME] IN BLOOD BY AUTOMATED COUNT 6.35 10*3/u L 2.0 - 7.7 10/22 Specimen Type: BLOOD Comment: Automated Differential Performed Ordering Provider: MIGUEL ANGEL AVILES Report Released Date/Time: Oct 18, 2021 12:21 PM Reporting Lab: [facility] [address] Performing Lab: [facility] [address] [facility] CBC & DIFF EOSINOPHILS [#/VOLUME] IN BLOOD BY AUTOMATED COUNT 0.27 10*3/u L 0 - 0.5 10/22 Specimen Type: BLOOD Comment: Automated Differential Performed Ordering Provider: MIGUEL ANGEL AVILES Report Released Date/Time: Oct 18, 2021 12:21 PM Reporting Lab: [facility] [phone] Performing Lab: [facility] [phone] [facility] CBC & DIFF BASOPHILS [#/VOLUME] IN BLOOD BY AUTOMATED COUNT 0.04 10*3/u L 0 - 0.2 10/22 Specimen Type: BLOOD Comment: Automated Differential Performed Ordering Provider: MIGUEL ANGEL AVILES Report Released Date/Time: Oct 18, 2021 12:21 PM Reporting Lab: [facility] [phone] Performing Lab: [facility] [phone] [facility] CBC & DIFF IG(META,MYEL O,PRO) 0.1 10/22 Specimen Type: BLOOD Comment: Automated Differential Performed Ordering Provider: MIGUEL ANGEL AVILES Report Released Date/Time: Oct 18, 2021 12:21 PM Reporting Lab: [facility] [phone] Performing Lab: [facility] [phone] [facility] CBC & DIFF IMMATURE GRANULOCYTES [PRESENCE] IN BLOOD BY AUTOMATED COUNT 0.01 10*3/u L 0 - 0.1 10/22 Specimen Type: BLOOD Comment: Automated Differential Performed Ordering Provider: MIGUEL ANGEL AVILES Report Released Date/Time: Oct 18, 2021 12:21 PM Reporting Lab: [facility] [phone] Performing Lab: [facility] [phone] [facility] PSA PROSTATE SPECIFIC AG [MASS/VOLUME ] IN SERUM OR PLASMA 3.14 ng/mL <4.00 - 4.00 09/06 /2022 Specimen Type: SERUM No comment entered. Ordering Provider: MIGUEL ANGEL AVILES Report Released Date/Time: Oct 18, 2021 12:21 PM Reporting Lab: [facility] [phone] Performing Lab: [facility] [phone] [facility] TSH W/REFL EX TO FREE T4 THYROTROPIN [UNITS/VOLUM E] IN SERUM OR PLASMA 0.81 u[IU]/ mL 0.35 - 4.94 10/22 Specimen Type: PLASMA No comment entered. Ordering Provider: MIGUEL ANGEL AVILES Report Released Date/Time: Oct 18, 2021 12:21 PM Reporting Lab: [facility] [phone] Performing Lab: [facility] [phone] [facility] Vital Signs Combined list of inpatient and outpatient Vital Signs from Department of Defense and [facility], ranging from 12 months to all on record, depending upon the facility. Vital Sign Value Date Comments Source Encounters Combined list of: 1) Encounters from Department of Veterans Affairs facilities going back up to thelast 18 months. 2) Encounters from the Department of [facility] facilities going back up to 280 months. Location Location Details Encounter Type Encounter Number Reason For Visit Attending Provider ADM Date DC Date Status Disposition Source [facility] OFFICE O/P EST HI 40-54 MIN [id number] Diagnos is: ICD-10- CM Z00.01 Encount er for general adult medical exam w abnorma l finding s
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
BLUJUNIOR JOHNSON L 01/20 [facility] [place] [facility] Outpatient Encounter [id number] 05/30 [place] [facility] Outpatient Encounter [id number] 06/22 [place] [facility] Outpatient Encounter [id number] 08/16 [place] [place] [facility] Outpatient Encounter [id number] 08/26 [place] [facility] Outpatient Encounter [id number] 08/30 [facility] OFFICE O/P EST HI 40 MIN [id number] Diagnos is: ICD-10- CM Z00.01 Encount er for general adult medical exam w abnorma l finding s
TARAH AVILES A S 09/06 [facility] [place] [facility] Outpatient Encounter [id number] 09/07 [facility] Social History Combined list of available smoking, tobacco, and other social history from Department of Defense and Veterans Affairs facilities. Social History Type Response Date Comment Sourc e Tobacco smoking status [facility] CA-TOBACCO NEVER USED 09/07/2023 [facility] History of tobacco use VA-TOBACCO FORMER USER 11/15/2021 [facility] History of tobacco use VA-TOBACCO FORMER USER 01/09/2021 [facility] This section is an empty social history section. DoD Plan of Care List of future care activities from Department of Veterans Affairs facilities. Additional future care activities may be listed in the Assessment and Plan section. Date/Time Care Activity Care Activity Detail Facili ty 09/07/2023 Pharmacy - Clinic Medication Order [facility]
--- OUTSIDE RECORDS SUMMARY | 2023-09-11 13:43 | XMS_ITS | Encounter Summary ---
Author Name [facility] [place] [facility] Address [address] [place] [address] Care Team Providers Care Companion Caregiver Name Role Phone MIGUEL ANGEL AVILES Primary [...] PART A Nov 16, 2012 PART A [id number] [phone] SAUL METZGER JR PATIENT MEDICARE (WNR) MEDICARE (M) PART B Nov 16, 2012 PART B [id number] [phone] SAUL METZGER JR PATIENT Selected Encounter This section includes the information on record at [place] for the Encounter. Date/Time Encounter Type Encounter Description Reason Pro vider Source June 23, 2023 12:00 AM Outpatient Encounter EVENT (HISTORICAL) [facility] Encounter Template Text not used by [facility] Plan of Treatment: Future Appointments (+ 6 [...] 20 appointments. The data comes from all [place] treatment facilities. Appointment Date/Time Appointment Type Appointme nt Facility Name Sep 07, 2023 09:30 AM AMBULATORY - MEDICINE [facility]
--- OUTSIDE RECORDS SUMMARY | 2023-09-11 13:43 | XMS_ITS | Encounter Summary ---
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 Date/Time Encounter Type Encounter Description Reason Provider Source Sep 07, 2023 09:30 AM OFFICE O/P EST HI 40 MIN PRIMARY CARE/MEDICINE ICD-10-CM Z00.01 Encounter for general adult medical exam w abnormal findings MIGUEL ANGEL AVILES IHE Encounter Template Text not used by VA Assessments - Encounter Diagnoses This section includes the primary and secondary diagnoses documented for the Encounter. Date/Time Primary/Secondary Diagnosis Diagnosis Name Provider Source Sep 07, 2023 10:54 AM PRIMARY Encounter for general adult medical exam w abnormal findings MIGUEL ANGEL AVILES [facility] Sep 07, 2023 10:54 AM SECONDARY Abdominal aortic aneurysm, without rupture, unspecified MIGUEL ANGEL AVILES [facility] Sep 07, 2023 10:54 AM SECONDARY Athscl heart disease of [place] coronary artery w/o ang pctrs MIGUEL ANGEL AVILESPEE [facility] Sep 07, 2023 10:54 AM SECONDARY Chronic kidney disease, stage 4 (severe) [facility]UEL ANGEL [facility]ES[facility] Sep 07, 2023 10:54 AM SECONDARY Depression, unspecified [facility]UEL ANGEL [facility]ES[facility] Sep 07, 2023 10:54 AM SECONDARY Dyspnea, unspecified [facility]EL ANGEL [facility] Sep 07, 2023 10:54 AM SECONDARY Essential (primary) hypertension [facility]EL ANGEL [facility]ES[facility] Sep 07, 2023 10:54 AM SECONDARY Hyperlipidemia, unspecified [facility]UEL ANGEL [facility]ES[facility] Sep 07, 2023 10:54 AM SECONDARY Malignant neoplasm of prostate [facility]UEL ANGEL [facility]ES[facility] Sep 07, 2023 10:54 AM SECONDARY Unspecified atrial fibrillation MIGUEL ANGEL AVILES[facility] Plan of Treatment: Future Appointments (+ 6 months) and Future Tests (+/- 45 days) The Plan of Treatment section includes future care activities for the patient from all CT treatmentfacilities. This section includes future appointments and future orders which are active, pending or scheduled. Active, Pending, and Scheduled Orders This section includes a listing of several types of active, pending, and scheduled orders, including clinic medications orders, diagnostic test orders, procedure orders and consult orders; where the start date of the order is 45 days before the date of the Encounter or 45 days after the date of theEncounter. The data comes from all CT treatment facilities. Test Date/Time Test Type Test Details Facility Name Sep 07, 2023 10:43 AM Pharmacy - Clinic Medication Ord er [facility] Vital Signs: All taken on the encounter date This section contains inpatient and outpatient Vital Signs collected on the date of the Encounter. Date/Time Temperature Pulse Blood Pressure Respiratory Rate SP02 Pain Height Weight Body Mass Index Source Sep 07, 2023 09:18 AM 97.4 80 130/88 17 94 0 69.5 216.7 32 [facility] Social History: Smoking Status (Most current) and Tobacco Use (All prior to encounter date) This section includes the most current, and the historical, smoking and tobacco- related health factors from the CT facility where the Encounter took place. Current Smoking Status This section includes the most current smoking, or tobacco-related health factor, from the CT facility where the Encounter took place. Date/Time Current Smoking Status Comment Facil ity Sep 07, 2023 09:30 AM VA-TOBACCO NEVER USED [facility] Tobacco Use History This section includes a history of the smoking, or tobacco-related health factors, that were collected on or before the date of the Encounter. The data comes from the CT facility where the Encounter took place. Date/Time Smoking Status/Tobacco Use Comment F acility Nov 15, 2021 01:00 PM VA-TOBACCO FORMER USER [facility] Nov 15, 2021 01:00 PM VA-TOBACCO QUIT 5 TO < 15 YRS [facility] Encounter Notes: All associated encounter notes This section contains the clinical notes associated to the Encounter. Date/Time Encounter Note(s) Provider Source Sep 07, 2023 10:23 AM H & P NOTE: LOCAL TITLE: [facility] ANNUAL VISIT STANDARD TITLE: H & P NOTE DATE OF NOTE: SEP 07, 2023@10:23 ENTRY DATE: SEP 07, 2023@10:23:20 AUTHOR: MIGUEL ANGEL AVILES EXP COSIGNER: URGENCY: STATUS: COMPLETED Today's Nurse check-in paper sheet with vitals reviewed. Seen in clinic today respecting current PPE guidelines. Patient brought in outside medical records and have been reviewed: Copy of his PET scan report completed at [facility] in [facility] without his name or date of . Co-managed care with a non-VA provider.Dr. Jam Marshall MD at [facility] Physical Security Specialist [facility] in [place]/[facility] Urologist Dr. Lloyd Lopez with [place] [facility] Chief complaint:SAUL METZGER is a 77 year old MALE is here for Wellness and preventive medicine visit. The patient has no concerns today. History of Present Illness: Mr. Metzger is an elderly man with a known history of coronary artery disease, atrial fibrillation, prostate cancer, chronic kidney disease, chronic obstructive pulmonary disease, essential hypertension, gastroesophageal reflux disease, hyperlipidemia, depression, obesity and recent diagnosis of infrarenal aortic aneurysm. He is here for his annual visit and reports that he had a PET scan done recently for prostate cancer which revealed coronary artery disease. He has been diagnosed with atrial fibrillation and is currently on aspirin pending upcoming prostate procedures. He says he is in the process of getting echo and stress test done in the near future and we reviewed that he has had stress echo in 2021. He has not had lipid panel checked with his kidney labs done recently. He is not sure if it was checked at [facility] and he is also informed that he needs magnesium monitored for taking omeprazole. He is wondering if there is any medications that he should be taking to protect kidney function and he plans to discuss if Kerendia or generic Finerenone is an option for him with his health and safety coordinator. He has gradually lost weight and is aware of trying semaglutide for heart benefits in the future. He plans to discuss this with Dr. Marshall. is currently taking sertraline and buspirone for mood symptoms as prescribed by his NON-VA PCP and feels that it is helpful. He likes to cruz and fish and talks about being attacked by le[place]. So he does not use them for his bait. He has had ringing in the ears and feels that his hearing is getting worse. He agrees to schedule a visit in audiology at [facility] for further evaluation. He has quit chewing tobacco and drinks alcohol occasionally 1-2 beers a year. No other concerns today Review of Systems: is negative, except as above. Past Medical History Active problems - Computerized Problem List is the source for the followin. Prostate Cancer ([facility] [id number]) - S/P CRYOTHERAPY - Managed by Urologist at [place] [facility] 2. Left ventricular hypertrophy 3. Abdominal aortic aneurysm - INFRARENAL AA 4.4cm noted on PET on 08/18/2023 - Managed by ,recheck DUE 2024 & vascular surg if >5.0cm 4. Dyspnea - outside CT PFTs show probable obstruction - Has been seen by CT wallpaperer, PFTs there normal with recs to STOP INHALERS without asthma or COPD - SEE RESULT LETTER 11/01/21 for details of Stress ECG negative for ischemia. - Peak heart rate 125 bpm, which is 85% of the maximum predicted heart rate. - test was stopped due to SOB and leg weakness 5. left orbital mass - Thought to be benign, 02/09/2020 CT done at [place] shows it was in left upper lid without involving the globe 6. Hyperlipidemia (SCT [id number]) 7. HTN - Hypertension ([facility] [id number]) - TOTAL SC 20%:HYPERTENSIVE VASCULAR DISEASE (10%-SC) 8. Ex-tobacco chewer - has smoked Cigars from [id number], then chewed tobacco to quit in 2014 9. 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 H/O: surgery - s/p TURP- FOR PROSTATE CANCER S/P CRYOTHERAPY - S/p Right Ankle fracture repair Hardware - s/p B/L Cataract surgery - HAS HAD DELAYED RECOVERY FROM ANESTHESIA - s/p Colonoscopy 2019 F/U IN 10 YRS and wants to stop screening 11. Body mass index 30+ - obesity 12. Chronic kidney disease stage 4 - Left renal CYST Noted on PET scan[facility]/18/23 [facility] - Managed by Dr.[facility] [place] 13. 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 Depression ([facility] [id number]) - MANAGED BY , Currently Buspar &Sertraline 15. GERD - Gastro-Esophageal Reflux Disease (SCT [id number]) 16. Body mass index 30+ - obesity 17. Osteoarthritis - TOTAL SC 20%;ARTHRITIS, DEGENERATIVE (10%-SC) 18. Exposure to potentially hazardous substance (SCT [id number]) - [facility] 19. AF-Atrial Fibrillation (SCT 15838338) - Currently on metoprolol and aspirin pending prostate procedures 20. CAD - Coronary Artery Disease (SCT [id number]) - reports PET scan showing calcification at [facility] [place] in [place] - [facility]; Stress ECG negative for ischemia. 21. Secondary Hyperparathyroidism of Renal Origin (SCT [id number]) Service: Service Branch Service # Entered Discharge [employer] [id number] OCT 14, 1964 A[birth year] 16, 1991 HONORABLE Allergies: ISONIAZID (Aug 12, 2021) Please see med list at the end of this note Physical Exam: Vitals: BP: 130/88 (09/07/2023 09:18) P: 80 (09/07/2023 09:18) R: 17 (09/07/2023 09:18) T: 97.4 F [36.3 C] (09/07/2023 09:18) WT: 216.7 lb [98.29 kg] (09/07/2023 09:18) BMI: 31.6 Pain: 0 (09/07/2023 09:18) O2 Sat: 94% (09/07/2023 09:18) General: Alert, well dressed and groomed, no apparent distress HEENT: Normocephalic, atraumatic, mild hearing impairment noted neck movements intact Lungs: No respiratory distress GI: Abdomen is obese Skin: is intact, no rash or erythema MS: No joint swelling, ambulates without difficulty Psych: Good eye contact, speech normal rate and rhythm, affect full range Lab/Other data: Previous labs reviewed in [facility]. PET scan report brought in by [place] cannot be scanned without his name or date of on it as identifiers. Assessment/Plan: Wellness/screening visit completed. Active problems - Computerized Problem List is the source for the followin. Prostate Cancer (SCT [id number]) - S/P CRYOTHERAPY - Managed by Urologist at [facility] 2. Left ventricular hypertrophy 3. Abdominal aortic aneurysm - INFRARENAL AA 4.4cm noted on PET on 08/18/2023 - Managed by ,recheck DUE 2024 & vascular surg if >5.0cm 4. Dyspnea - outside CT PFTs show probable obstruction - Has been seen by CT wallpaperer, PFTs there normal with recs to STOP INHALERS without asthma or COPD - SEE RESULT LETTER 11/01/21 for details of Stress ECG negative for ischemia. - Peak heart rate 125 bpm, which is 85% of the maximum predicted heart rate. - test was stopped due to SOB and leg weakness 5. left orbital mass - Thought to be benign, 02/09/2020 CT done at [place] shows it was in left upper lid without involving the globe 6. Hyperlipidemia (SCT 98108239) 7. HTN - Hypertension (SCT 30391531) - TOTAL SC 20%:HYPERTENSIVE VASCULAR DISEASE (10%-SC) 8. Ex-tobacco chewer - has smoked Cigars from 2957-4857, then chewed tobacco to quit in 2014 9. CAD - Coronary Artery Disease (SCT [id number]) - reports PET scan showing calcification at [facility] in [place] - ECHO from CT 2021; Stress ECG negative for ischemia. 10. Secondary Hyperparathyroidism of Renal Origin (SCT 59534406) 11. Body mass index 30+ - obesity 12. Chronic kidney disease stage 4 - Left renal CYST Noted on PET scan08/18/23 [facility] - Managed by Dr[facility] in [place] 13. 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 Depression (SCT 72131356) - MANAGED BY , Currently Buspar &Sertraline 15. GERD - Gastro-Esophageal Reflux Disease (SCT 959230312) 16. Body mass index 30+ - obesity 17. Osteoarthritis - TOTAL SC 20%;ARTHRITIS, DEGENERATIVE (10%-SC) 18. Exposure to potentially hazardous substance (SCT [id number]) - Entered through [facility]IE Documentation Initiative 19. AF-Atrial Fibrillation (SCT 50789257) - Currently on metoprolol and aspirin pending prostate procedures Nutrition information provided and I have reviewed portion size necessary along with increasing water and veggie intake as tolerated to help reduce weight. He understands that there is nationwide shortage of semaglutide and CT is not doing new start at this time. He plans to review semaglutide with Dr. Umanzor. Low salt and low fat diet with regular exercise as tolerated will help improve or maintain normal Blood pressure, cholesterol, maintain good health or improve health is encouraged. Goal blood pressure < 129/79 is discussed. Importance of taking at least 3 servings of dairy per day or taking a multivitamin daily or taking vitamin D 1000 units daily in winter months is discussed. Medications reviewed and is updated. He plans to discuss Finerenone or generic Kerendia use for chronic kidney disease with his health and safety coordinator. He also plans to discuss semaglutide with his NON-VA PCP Dr. Marshall. He understands that his LDL goal should be less than 70. We can consider same-day labs as appropriate at next visit. Blanca reports having PSA checked earlier this year at [facility] and report is not available in [facility]. He is informed that he needs to have magnesium monitored for taking omeprazole. Please see nursing documentation regarding vaccination. Risk benefits of RSV vaccination is reviewed in detail. He agrees to schedule an appointment for it. [place] is given number to call for appointments to have vision and hearing checked at [facility] understands and agrees to the plan. Follow up as discussed. Sooner if questions or concerns. Risk benefits of taking RSV vaccination is reviewed for shared clinical decision making with the patient prior to administration is as follows; [v ] Aged >60 years old AND are at highest risk for severe RSV disease and who might be most likely to benefit from vaccination include those with chronic medical conditions such as: [V] Cardiopulmonary disease, specify: _ [V] Kidney disorders, specify _ [_] Liver disorders, specify _ [_] Neurologic or neuromuscular conditions, Specify _ [_] Hematologic disorders, specify _ [_] Diabetes mellitus [_] Moderate or severe immune compromise (either attributable to a medical condition or receipt of immunosuppressive medications or treatment); specify _ [_] Persons who are frail* (as defined by CDC) [_] persons of advanced age [_] persons who reside in nursing homes or other long-term care facilities [_] persons with other underlying conditions or factors that the provider determines might increase the risk for severe respiratory disease; specify _ The Advisory Committee on Immunization Practices (ACIP) noted the vaccine had moderate to high efficacy over 1 full and a 2nd partial season with an acceptable safety profile but felt more evidence from post-marketing surveillance was needed for potential immune-mediated diseases (such as Guillain-Empire) and atrial fibrillation. More data is needed in the highest risk patients, more data Assess Statin Use - Lipids (CVD/DM): The patient is still taking the NON-VA statin medication as documented. Prostate Cancer F/U PSA: PSA done previously Date: May 31, 2023 Location: [place] Comment: [place] reported it was at 4.2. report not available in [facility] Hepatitis C Testing: Prior negative anti-HCV test. Date: June 23, 2023 Location: [facility] Source of result: NON REACTIVE Medication Reconciliation: Education Evaluations *Was medication education provided for NEW medications or CHANGES to medications? (including medication name, dose, route, reason for use, and potential side effects). No new medications or medication changes during this encounter. TERATOGENIC MED & CONTRACEPTION REVIEW (Optional)... was informed about potential teratogenic risk of prescribed medications. intentions and need for effective contraception, if applicable, were discussed. MEDICATION RECONCILIATION List Given: An updated medication list was provided to the patient/caregiver. Review Done: The medication list shown below was verified for accuracy and it includes all pending medications/active medications/all medications or discontinued within the last 90 days/all remote medications and non-VA medications. If a given category (i.e. remote meds) is not shown, that means that a patient doesn't have a medication(s) in that category. Allergies listed below were also reviewed/updated for accuracy. Allergies/ADR from [facility] may not display in [facility]. Use [facility] MRT5 - Allergies/ADRs FACILITY ALLERGY/ADR -------- No Remote Allergy/ADR Data available for this patient [facility] ISONIAZID Active and Recently Outpatient Medications (including Supplies): Start Date Active Non-VA Medications Refills Expiration === 1) Non-VA AMLODIPINE BESYLATE 10MG TAB ACTIVE SiMG MOUTH EVERY EVENING 2) Non-VA ASPIRIN 81MG EC TAB SiMG ACTIVE MOUTH EVERY DAY 3) Non-VA ATORVASTATIN CALCIUM 40MG TAB ACTIVE SiMG MOUTH EVERY DAY 4) Non-VA BUSPIRONE HCL 5MG TAB SiMG ACTIVE MOUTH TWICE A DAY 5) Non-VA LISINOPRIL 40MG TAB SiMG ACTIVE MOUTH 6) Non-VA METOPROLOL SUCCINATE 50MG SA TAB ACTIVE SiMG MOUTH EVERY DAY 7) Non-VA NON VA MED NOT LISTED ACTIVE MISCELLANEOUS Sig: IPRATROPIUM-ALBUTEROL (COMBIVENT RESPIMAT) 20-100 MCG/ACT INHALER MOUTH FOUR TIMES A DAY 8) Non-VA NON VA MED NOT LISTED ACTIVE MISCELLANEOUS Sig: CITALOPRAM HYDROBROMIDE MOUTH 9) Non-VA OMEPRAZOLE 20MG EC CAP SiMG ACTIVE MOUTH EVERY DAY 10) Non-VA SERTRALINE HCL 100MG TAB Sig: ACTIVE 100MG MOUTH EVERY MORNING 11) Non-VA TAMSULOSIN HCL 0.4MG CAP Sig: ACTIVE 0.4MG MOUTH 12) Non-VA TIZANIDINE HCL 4MG TAB SiMG ACTIVE MOUTH EVERY 8 HOURS NEEDED Start Date Inactive Non-VA Medications Refills Expiration === 1) Non-VA METOPROLOL TARTRATE 75MG TAB DISCONTINUED SiMG MOUTH 13 Total Medications /es/ MIGUEL ANGEL AVILES MD PHYSICIAN YVAN HERRERA Signed: 09/07/2023 10:54 MIGUEL ANGEL AVILES [facility] Sep 07, 2023 09:21 AM PRIMARY CARE NURSI NG NOTE: LOCAL TITLE: [facility] NURSING PROGRESS NOTE STANDARD TITLE: PRIMARY CARE NURSING NOTE DATE OF NOTE: SEP 07, 2023@09:21 ENTRY DATE: SEP 07, 2023@09:21:30 AUTHOR: ADA BORGES EXP COSIGNER: URGENCY: STATUS: COMPLETED TYPE OF VISIT: Appointment Check In Type of appointment: In-person appointment REASON FOR VISIT: ANNUAL STAGE FOUR KIDNEY DISEASE AND PROSTATE CANCER HAS RETURNED: 09.16.23 CYROTHERAPY ALLERGIES: ISONIAZID (Aug 12, 2021) VITAL SIGNS: Blood Pressure: 130/88 (09/07/2023 09:18) Pulse: 80 (09/07/2023 09:18) Respiration: 17 (09/07/2023 09:18) Temperature: 97.4 F [36.3 C] (09/07/2023 09:18) Weight: 216.7 lb [98.29 kg] (09/07/2023 09:18) Height: 69.5 in [176.5 cm] (09/07/2023 09:18) BMI: 31.6 O2 Sat: 94% (09/07/2023 09:18) Pain: 0 (09/07/2023 09:18) PAIN SCREEN: Patient is not having significant pain that they wish to discuss with their provider today. MEDICATION Active Outpatient Medications (including Supplies): Non-VA AMLODIPINE BESYLATE 10MG TAB 5MG MOUTH EVERY ACTIVE EVENING Non-VA ASPIRIN 81MG EC TAB 81MG MOUTH EVERY DAY ACTIVE Non-VA ATORVASTATIN CALCIUM 40MG TAB 20MG MOUTH EVERY DAY ACTIVE Non-VA LISINOPRIL 40MG TAB 20MG MOUTH ACTIVE Non-VA METOPROLOL TARTRATE 100MG TAB 100MG MOUTH ACTIVE Non-VA NON VA MED NOT LISTED MISCELLANEOUS ACTIVE IPRATROPIUM-ALBUTEROL (COMBIVENT RESPIMAT) 20-100 MCG/ACT INHALER MOUTH FOUR TIMES A DAY Non-VA NON VA MED NOT LISTED MISCELLANEOUS CITALOPRAM ACTIVE HYDROBROMIDE MOUTH Non-VA OMEPRAZOLE 20MG EC CAP 20MG MOUTH EVERY DAY ACTIVE Non-VA SERTRALINE HCL 100MG TAB 100MG MOUTH EVERY MORNING ACTIVE Non-VA TAMSULOSIN HCL 0.4MG CAP 0.4MG MOUTH ACTIVE Non-VA TIZANIDINE HCL 4MG TAB 4MG MOUTH EVERY 8 HOURS ACTIVE NEEDED Patient reports the following changes regarding the current pharmacy list of medications: NO CHANGES-SEE MED RECON Over the Counter/Herbal Medications: The patient denies taking any outside medications or herbals. COVID-19 Immunization: Refused Pfizer Monovalent COVID-19 vaccine Immunization: COVID-19 ([employer]), MRNA, LNP-S, PF, LUZ-SUCROSE, 30 MCG/0.3 ML (AGES 12+ YEARS) Refusal Reason: PATIENT DECISION Patient refuses all immunization(s) in the COVID-19 group Date Documented: 09/07/23 09:24 Suicide Screen: C-SSRS Screening [place] Suicide Severity Rating Scale (C-SSRS) screener 1. Over the past month, have you wished you were or wished you could go to sleep and not wake up? No 2. Over the past month, have you had any actual thoughts of killing yourself? No 3. Over the past month, have you been thinking about how you might do this? Response not required due to responses to other questions. 4. Over the past month, have you had these thoughts and had some intention of acting on them? Response not required due to responses to other questions. 5. Over the past month, have you started to work out or worked out the details of how to kill yourself? Response not required due to responses to other questions. 6. If yes, at any time in the past month did you intend to carry out this plan? Response not required due to responses to other questions. 7. In your lifetime, have you ever done anything, started to do anything, or prepared to do anything to end your life (for example, collected pills, obtained a gun, gave away valuables, went to the roof but didn't jump)? No 8. If YES, was this within the past 3 months? Response not required due to responses to other questions. Depression Screening: Perform PHQ-2 A PHQ-2 screen was performed. The score was 1 which is a negative screen for depression. Over the past two weeks, how often have you been bothered by the following problems? 1. Little interest or pleasure in doing things Several days 2. Feeling down, depressed, or hopeless Not at all Alcohol Use Screen (AUDIT-C): Alcohol Screen: SCREEN FOR ALCOHOL (AUDIT-C) An alcohol screening test (AUDIT-C) was negative (score=0). 1. How often did you have a drink containing alcohol in the past year? Consider a drink to be a 12 ounce can or bottle of regular beer, 8 ounces of malt liquor, a 5 ounce glass of table wine, or a 1.5 ounce shot of liquor (like scotch, gin, or vodka). Never 2. How many drinks containing alcohol did you have on a typical day when you were drinking in the past year? Response not required due to responses to other questions. 3. How often did you have six or more drinks on one occasion in the past year? Response not required due to responses to other questions. Nursing Annual Screening: Fall History Screen During the past 12 months, have you had any falls? Patient does not report any falls in the past 12 months. MEDICATIONS: Patient is on one of the following medication classes: Antihypertensives, Antidepressants, Antipsychotics, Diuretics, or Controlled substance medication used for pain. Script Talk Screen Are you able to read your prescription bottles with your glasses, magnifiers or other aids? Yes or patient not taking any prescriptions. Skin Screen Patient reports any current pressure ulcers, a history of pressure ulcers, or a wound from a medical center director or Patient is bed-confined or a wheelchair-user or Patient requires assistance to transfer/change position No, Skin Screen is Negative Home Abuse/Violence Screen Is your home free of abuse and violence? Yes MOVE! Program Screen Body Mass Index (BMI)= 31.6 [place]: Collection DT Specimen Test Name Result Units Ref Range 01/09/2021 14:38 BLOOD HEMOGLOBIN A1C 4.9 % 4.0 - 6.0 [place] Hgb A1C: No data available [place] Hgb A1C: No data available Point of Care Hgb A1C: POC HGB A1C____ Outpatient Nutrition Screen Body Mass Index (BMI)= 31.6 [place]: Collection DT Specimen Test Name Result Units Ref Range 01/09/2021 14:38 BLOOD HEMOGLOBIN A1C 4.9 % 4.0 - 6.0 [place] Hgb A1C: No data available [place] Hgb A1C: No data available Point of Care Hgb A1C: POC HGB A1C____ Is patient's BMI less than 18.5? No Does patient have swallowing, coughing, or chewing problems affecting oral intake? No Has patient experienced unplanned weight loss or gain greater than 10 pounds over the last 2 months? No Is patient's Hgb A1C (Glycosylated Hemoglobin) greater than 9.5? No Is patient receiving Total Parenteral Nutrition (TPN) or Tube Feedings? No Patient Health Education Screen BARRIERS/SPECIAL NEEDS: Physical limitations Visual limitations PREFERRED STYLE OF LEARNING: Watching something Listening Reading No preference stated Client Assistive Service (LYN) Screen Does the patient require assistance with outpatient visit? No Tobacco Use Screening: The patient has never used tobacco. Homelessness/Food Insecurity Screen: In the past 2 months, have you been living in stable housing that you own, rent, or stay in as part of a household? Yes - Living in stable housing. Are you worried or concerned that in the next 2 months you may NOT have stable housing that you own, rent, or stay in as part of a household? No - Not worried about housing near future [facility] [place] reports the following: Within the past 12 months, you worried whether your food would run out before you got money to buy more. Never true Within the past 12 months, the food you bought just didn't last and you didn't have money to get more. Never true Food Assistance Programs [facility] Food Assistance Programs [facility] Entry of Outside Tests/Reports: ADV DIR Notification and Screening: ADVANCE DIRECTIVE NOTIFICATION: Patient was given written notification of the following rights: 1. Accept or refuse any medical treatment. 2. Complete a durable power of online marketing strategist for health care. 3. Complete a living will. ADVANCE DIRECTIVE SCREENING: Does patient have an Advance Directive? The patient does not have an Advance Directive. The patient does not wish to create an Advance Directive for health care. Sexual Orientation: The patient thinks of their sexual orientation as: Straight or Heterosexual /es/ ADA BORGES LPN LICENSED PRACTICAL NURSE Signed: 09/07/2023 09:29 ADA BORGES [facility]
--- OUTSIDE RECORDS SUMMARY | 2023-09-11 13:43 | XMS_ITS | Encounter Summary ---
Author Name [facility] [place] [facility] [place] Organization [facility] [place] Address [address] [place] [address] Care Team Providers Care Nail Assembly Machine Operator Name Role Phone MIGUEL ANGEL AVILES [...] PART A Nov 16, 2012 PART A [id number] [phone] SAUL METZGER JR PATIENT MEDICARE (WNR) MEDICARE (M) PART B Nov 16, 2012 PART B [id number] CY12 [phone] SAUL METZGER JR PATIENT Selected Encounter This section includes the information on record at [place] for the Encounter. Date/Time Encounter Type Encounter Description Reason Pro vider Source Aug 17, 2023 08:46 AM Outpatient Encounter PRIMARY CARE/MEDICINE IHE Encounter Template Text not used by [place] Plan of Treatment: Future Appointments (+ 6 [...] 20 appointments. The data comes from all [facility]. Appointment Date/Time Appointment Type Appointme nt Facility Name Sep 07, 2023 09:30 AM AMBULATORY - MEDICINE [facility] Active, Pending, and Scheduled Orders This section includes a listing of several types of active, pending, and scheduled orders, including clinic medications orders, diagnostic test orders, procedure orders and consult orders; where the start date of the order is 45 days before the date of the Encounter or 45 days after the date of theEncounter. The data comes from all [facility]. Test Date/Time Test Type Test Details Facility Name Sep 07, 2023 10:43 AM Pharmacy - Clinic Medication Ord janet [facility] Social History: Smoking Status (Most current) and Tobacco Use (All prior to encounter date) This section includes the most current, and the historical, smoking and tobacco- related health factors from the [place] facility where the Encounter took place. Current Smoking Status This section includes the most current smoking, or tobacco-related health factor, from the [place] facility where the Encounter took place. Date/Time Current Smoking Status Comment Facil ity Jan 09, 2021 12:30 PM VA-TOBACCO FORMER USER [facility] Tobacco Use History This section includes a history of the smoking, or tobacco-related health factors, that were collected on or before the date of the Encounter. The data comes from the [place] facility where the Encounter took place. Date/Time Smoking Status/Tobacco Use Comment F acility Jan 09, 2021 12:30 PM VA-TOBACCO QUIT 5 TO < 15 YRS [facility] Encounter Notes: All associated encounter notes This section contains the clinical notes associated to the Encounter. Date/Time Encounter Note(s) Provider Source Aug 17, 2023 08:46 AM REPORT OF CONTACT: LOCAL TITLE: APPOINTMENT SCHEDULING NOTE STANDARD TITLE: REPORT OF CONTACT DATE OF NOTE: AUG 17, 2023@08:46 ENTRY DATE: AUG 17, 2023@08:46:50 AUTHOR: MESSI LARSON EXP COSIGNER: URGENCY: STATUS: COMPLETED Attempted to schedule Recall/Patient Center Scheduling (PtCSch) Contact attempt made to [place] 1st attempt Telephone 2nd attempt Letter - Sent letter by regular [place] mail to address on file: SAUL METZGER JR [address] [place], [place] [address] Disposition order request after Aug Left message on voice mail to call back to this number [phone] If [facility] calls back, schedule appt for: ANNUAL/JY-AOQAZML-XM.[facility] [employer] /es/ JAQUELIN SNATORO Signed: 08/17/2023 08:48 [facility]
--- OUTSIDE RECORDS SUMMARY | 2023-09-11 13:44 | XMS_ITS | Encounter Summary ---
Author Organization [facility] Address [address] [place] [address] Phone Care Team Providers Care Inside Sales Trainer Name Role Phone Oren Marshall MD Primary Care Provider [phone] Encounter Details Date Type Department Care Team (Late Contact Info) Description 08/12/2023 Telephone [address] [place] [address] Netta Houston RN Social History Tobacco Use Types Packs/Day Years Used Date Smoking Tobacco: Former Cigarettes Q uit: 2015 Passive Smoke Exposure: Past Smokeless Tobacco: Never Alcohol Use Standard Drinks/Week Comments Yes 0 (1 standard drink = 0.6 oz pur e alcohol) Sex and Gender Information Value Date Recorded Sex Assigned at Not on file Gender Identity Not on file Sexual Orientation Not on file documented as of this encounter Miscellaneous Notes * Telephone Encounter - Netta Houston RN - 08/12/2023 9:21 AM CDT Pt called and LM about holding lisinopril for a couple days prior to an upcoming nuclear med procedure. Reviewed with Silva, she was fine with this, he should keep an eye on bps in the meantime. Called him back and got VM, left a detailed message. documented in this encounter Plan of Treatment Upcoming Encounters Date Type Department Care Team (Late Contact Info) Description 10/29/2023 2:30 PM CDT Office Visit [facility] [address] [facility] [address] [place] [address] Mitch Ferreira MD [address] [facility] [address] [place] [address] documented as of this encounter Visit Diagnoses Not on filedocumented in this encounter Care Teams Inside Sales Trainer Relationship Specialty Start Date End Date Oren Marshall MD [address] [place] [address] PCP - General 06/16/23 documented as of this encounter
--- OUTSIDE RECORDS SUMMARY | 2023-09-11 13:44 | XMS_ITS | Encounter Summary ---
Author Organization [facility] Address [address] [place] [address] Phone Care Team Providers Care Reception Clerk Name Role Phone Oren Marshall MD Primary Care Provider [phone] Reason for Visit * Reason Onset Date Comments Results 07/03/2023 Encounter Details Date Type Department Care Team (Late st Contact Info) Description 07/03/2023 Telephone [employer] [address] [facility] [address] [place], [place] [address] Neida Koch, EMILIA Results Social History Tobacco Use Types Packs/Day Years [...] encounter Miscellaneous Notes * Telephone Encounter - Neida Koch RN - 07/07/2023 2:18 PM CDT [employer] message to Richy. He is scheduled for EDU on 07/29 and then he is on the recall list to see Dr Ferreira in September. * Telephone Encounter - Mitch Ferreira MD - 07/06/2023 9:06 PM CDT CKD IV. UA is concentrated, so drink more water Not immune to hepB virus. Can get series from us or PCP\ See me three months after seeing Ms Bhatti for education * Telephone Encounter - Neida Koch RN - 07/03/2023 2:46 PM CDT Study Result Narrative & Impression US RENAL COMPLETE NON-VASCULAR 07/02/2023 4:10 PM HISTORY: Chronic kidney disease, stage IV (severe) (H) COMPARISON: None. FINDINGS: Right Kidney: 10.8 cm. Increased cortical echogenicity. No hydronephrosis. Simple-appearing interpolar cyst measuring up to 1.8 cm, no specific follow-up recommended. Left Kidney: 11.5 cm. Increased cortical echogenicity. No hydronephrosis. Simple-appearing upper pole cyst measuring up to 2.8 cm, no specific follow-up recommended. Bladder: Only partially distended but otherwise unremarkable. IMPRESSION: 1. No hydronephrosis. 2. Findings suggestive of chronic medical renal disease. ANGELA BERMUDEZ MD documented in this encounter Plan of Treatment Upcoming Encounters Date Type Department Care Team (Late st Contact Info) Description 10/29/2023 2:30 PM CDT Office Visit [facility] [address] [facility] [address] [place] [address] Mitch Ferreira MD [address] [facility] [address] [place] [address] documented as of this encounter Visit Diagnoses Not on filedocumented in this encounter Care Teams Reception Clerk Relationship Specialty Start Date End Date Oren Marshall MD [address] [place] [address] PCP - General 06/16/23 documented as of this encounter
--- OUTSIDE RECORDS SUMMARY | 2023-09-11 13:44 | XMS_ITS | Encounter Summary ---
Author Name [facility] [place] Address [address] [place] [address] Care Team Providers Care Chief Of Vital Statistics Name Role Phone MIGUEL ANGEL AVILES Primary [...] PART A Nov 16, 2012 PART A [id number] CY12 [phone] SAUL METZGER JR PATIENT MEDICARE (WNR) MEDICARE (M) PART B Nov 16, 2012 PART B [id number] CY12 [phone] SAUL METZGER JR PATIENT Selected Encounter This section includes the information on record at CT for the Encounter. Date/Time Encounter Type Encounter Description Reason Pro vider Source Sep 08, 2023 09:52 AM Outpatient Encounter PRIMARY CARE/MEDICINE IHE Encounter Template Text not used by CT Plan of Treatment: Future Appointments (+ 6 [...] AM Pharmacy - Clinic Medication Ord er [facility] Social History: Smoking Status (Most current) [...] 09, 2021 12:30 PM VA-TOBACCO FORMER USER [facility] Tobacco Use History This section includes a history of the smoking, or tobacco-related health factors, that were collected on or before the date of the Encounter. The data comes from the [place] facility where the Encounter took place. Date/Time Smoking Status/Tobacco Use Comment F acility Jan 09, 2021 12:30 PM VA-TOBACCO QUIT 5 TO < 15 YRS [facility] Encounter Notes: All associated encounter notes This section contains the clinical notes associated to the Encounter. Date/Time Encounter Note(s) Provider Source Sep 08, 2023 09:52 AM REPORT OF CONTACT: LOCAL TITLE: APPOINTMENT SCHEDULING NOTE STANDARD TITLE: REPORT OF CONTACT DATE OF NOTE: SEP 08, 2023@09:52 ENTRY DATE: SEP 08, 2023@09:52:21 AUTHOR: LUCIE MERRILL EXP COSIGNER: URGENCY: STATUS: COMPLETED Attempted to schedule Return to clinic (RTC) Contact attempt made to 1st attempt Telephone Beatty wants to call back to schedule If Beatty calls back, schedule appt for: Return to [facility] on or around ( Sep 14, 2023 ) for a total of 1 appointment(s) Prerequisites: prefers recall reminder, will not schedule RTC today RSV Vaccine /es/ LUCIE MERRILL ASMA Signed: 09/08/2023 09:53 LUCIE MERRILL [facility]
--- OUTSIDE RECORDS SUMMARY | 2023-09-11 13:44 | XMS_ITS | Continuity of Care Document ---
Author Organization [place] - [facility], [facility] Address [address] [place] [address] Care Team Providers Care Cube Cutter Name Role Phone FERNANDO CONTRERAS Primary Care Provider Assessment No assessment recorded. Plan of Treatment Reminders Order Date Submit Date Provider Last Modified By Organization Details Last Modified Time Details Appointments HOSPITAL 60 2023 01:30P M Lloyd Lopez MD Not available Not available Not available Lab urinalysi s, dipstick 2023 024 [email or web address] [facility], [address], [address], [place], [address], 07/21/2023 11:09:03 Referral None recorded. Procedures bladder scan (PROC) 2023 024 [email or web address] [facility], [facility], [address], [place], [address], 07/21/2023 11:10:03 Surgeries None recorded. Imaging None recorded. Medication Orders None recorded. Patient TargetsNo targets recorded. Patient Instructions Encounter Date Encounter Id Patient Instructions Last Modified By Organization Details Last Modified Time 07/21/2023 [id number] I will review ou r old records for biopsy reports, procedure notes and old PSA's, will set up for pylarify scan to determine location of prostate disease [email or web address] Not available 07/21/2023 11:24:43 Reason for Referral None Reported. Results Created Date Observation Date Name Description Value Unit Range Abnormal Flag LastModifiedBy Organization Detail LastModifiedTime 07/21/19 24 07/21/2023 bladd er scan (PROC ) Volume (in mL) 46ml Not Available [address] [place], [place], [address], 07/21/2023 11:09:55 07/21/19 24 07/21/2023 urina lysis , dipst ick Color-Status Yellow Not Available [address] [place], [place], [address], 07/21/2023 11:08:07 07/21/19 24 07/21/2023 urina lysis , dipst ick Clarity-Stat us Clear Not Available [address] [place], [place], [address], 07/21/2023 11:08:07 07/21/19 24 07/21/2023 urina lysis , dipst ick Bilirubin-St atus Small Not Available [address] [place], [place], [address], 07/21/2023 11:08:07 07/21/19 24 07/21/2023 urina lysis , dipst ick Sp Rodeo-Stat us 1.025 Not Available [address] [place], [place], [address], 07/21/2023 11:08:07 07/21/19 24 07/21/2023 urina lysis , dipst ick pH-Status 5.5 Not Available [address], [place], [address], 07/21/2023 11:08:07 07/21/19 24 07/21/2023 urina lysis , dipst ick Protein-Stat us >=9.0 Not Available [address], [place], [address], 07/21/2023 11:08:07 07/21/19 24 07/21/2023 urina lysis , dipst ick Nitrates-Sta tus negati ve Not Available [address], [place], [address], 07/21/2023 11:08:07 07/21/19 24 07/21/2023 urina lysis , dipst ick Blood-Status Negati ve Not Available [address], [place], [address], 07/21/2023 11:08:07 07/21/19 24 07/21/2023 urina lysis , dipst ick Leuko-Status Negati ve Not Available [address], [place], [address], 07/21/2023 11:08:07 07/21/19 24 07/21/2023 urina lysis , dipst ick Specimen Type Voided Not Available [address], [place], [address], 07/21/2023 11:08:07 08/19/19 24 08/18/2023 PET-C T, skull base to mid-t high scan EXAM: PET CT PROSTA TE PSMA INITIA L 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 COMPAR GIORGI: CT abdome n pelvis 016. TECHNI QUE: 60 minute s post intrav enous admini strati on of 8.3 mCi F-18 Pifluf olasta t, PET imagin g was perfor med from the skull vertex to mid thighs utiliz ing attenu ation correc tion with concur rent axial CT and PET/CT image fusion . Dose reduct ion techni ques were used. FINDIN GS: Radiot racer uptake in the right greate r than left prosta te gland, suspic ious for locall y recurr ent prosta te cancer (serie s 8003 image 176). No eviden ce of radiot racer positi ve metast atic diseas e. Mild senesc ent intrac ranial change s. Modera te to severe anderson ry artery calcif icatio n. Few strand s of scar/a telect asis in the lungs. Cholel ithias is. Nonrad iotrac er avid probab le left renal cyst. Infrar enal abdomi nal aortic aneury sm measur ing up to 4.4 cm. Additi onal athero sclero tic calcif icatio ns. Scatte red coloni c divert iculi. Pelvic phlebo liths. Calcif icatio ns in the prosta te gland. Multil evel degene rative change s of the spine. IMPRES GILBERTO: 1. Radiot racer uptake in the prosta te gland, suspic ious for locall y recurr ent diseas e. No eviden ce of previo us positi ve metast atic diseas e. 2. Infrar enal abdomi nal aortic aneury sm measur ing up to 4.4 cm. This report was electr onical ly interp reted by: DR. LIZ SHEPHERD ON M.DShalini [facility] [address], [place], [address], 08/28/2023 14:21:05 Result Notes None recorded. Problems Name Status Onset Date Resolution Date Notes Provider Name and Address Organization Details Recorded Time Prostate specific antigen above reference range Active 07/17/19 16 R97.2 : Elevated prostate specific antigen [PSA] Not Available [facility] 08/04/2019 02:00:59 Problem Notes None recorded. Procedures Surgical History Date Name Laterality Status Provider Name and Address Organization Details Recorded Time Bladder Scan completed Luciano keller [facility] 07/21/2023 11:09:46 procedure on ankle completed Luciano keller [facility] 07/21/2023 11:09:02 Prostate Surgery completed Luciano keller [facility] 07/21/2023 11:09:09 Imaging Results None recorded. Procedure Notes None recorded. Medical Equipment None Reported. Allergies No known drug allergies Medications Name Sig Start Date Stop Date Status Note LastModified by Organization Details LastModified Time buspirone 5 mg tablet active Not Available Not Available Not Available atorvastatin 20 mg tablet active Not Available Not Available Not Available tizanidine 4 mg tablet active Not Available Not Available No t Available lisinopril 20 mg tablet active Not Available Not Available No t Available metoprolol succinate ER 100 mg tablet,extende d release 24 hr active Not Available Not Available Not Available sertraline 100 mg tablet TAKE 1 TABLET BY MOUTH DAILY active Not Available Not Available No t Available amlodipine 5 mg tablet active Not Available Not Available No t Available sertraline 50 mg tablet active Not Available Not Available No t Available Combivent Respimat 20 mcg-100 mcg/actuation solution for inhalation active Not Available Not Available N ot Available Vitals Date Recorded Body height Body mass index (BMI) Body weight Provider Name and Address Organization Details Last Updated DateTime 07/21/2023 177.8 cm 32.1 kg/m2 275360.69 g Jwteagan Juan [facility] 07/21/2023 11:07:52 Social History Question Answer Notes LastModified by Organizat ion Details LastModified Time Tobacco Smoking Status Former Smoker Luciano keller [facility] 07/21/2023 11:08:41 What Is Your Level Of Alcohol Consumption? Occasional Information not available 07/21/2023 What Is Your Level Of Caffeine Consumption? Moderate Information not available 07/21/2023 When Did You Quit Smoking? 16+yearssofy perez Information not available 07/21/2023 What Was The Date Of Your Most Recent Tobacco Screening? 07/21/2023 Information not available 07/21/2023 Sex: Unknown Functional Status None recorded. Mental Status None recorded. Family History Relationship Description Onset Age of this Age Resolved Age Notes Father Family history of ca ncer of colon Medical History Condition Response Other N High Blood Pressure Y Kidney Stones N Lung Disease N Depression N GERD/Acid Reflux N Diabetes N Sexually Transmitted Infection N Bleeding Disorder N Cancer Y High Cholesterol Y Heart Disease N Past Encounters Encounter ID Performer Location Encounter Start Date Encounter Closed Date Diagnosis/Indication Diagnosis SNOMED-CT Code [id number] Lloyd Lopez MD [facility] [address] [place] [address] 07/21/2023 10:54:57 07/22/2023 15:17:13 Prostate specific antigen above reference range [id number] Malignant tumor of prostate [id number] Health Concerns Section Related Observation LastModified by Organization Detai ls LastModified Time None Recorded Concern Status LastModified by Organization Details LastModified Time None Recorded Payers Encounter Date Sequence Insurance Name Policy Number Policy Garnica Covered Member ID Garnica Member ID Guarantor Name 07/21/2023 1 [place] [employer] Richy Kelly [id number] Richy Kelly 07/21/2023 2 WPS - FOR LIFE (MEDICARE SUPPLEMENT) Richy Kelly [id number] Richy Kelly Notes Date Note Type Note Provider Name and Address Organization Details Recorded Time 07/21/2023 text/html HPI Notes: New patient here today for PSA . UA , PVR 46ml dx with CaP in 2016 and had cryoablation done [facility] at that time. PSA 3.5 last year and up to 4.46 this year. voiding OK, no heme/dysuria. some urgency at time. has stage 4 CRF. Lloyd Lopez MD [address], [place], [address], [facility] 07/21/2023 11:26:41
--- OUTSIDE RECORDS SUMMARY | 2023-09-11 13:44 | XMS_ITS | Encounter Summary ---
Author Organization [facility] Address [address] [place] [phone] Phone Care Team Providers Care Motor Transport Inspector Name Role Phone Oren Contreras MD Primary Care Provider [phone] Encounter Details Date Type Department Care Team (Latest Contact Info) Description 07/30/2023 1:00 PM CDT Clinical Support [facility] [address] [facility] [address] [place] [address] Mabel Bhatti PA [address] [facility] [address] [place], [place] [id number] Chronic kidney disease stage 4 (CMS-HCC) (Primary Dx); Proteinuria, not otherwise specified; Essential hypertension; Chronic kidney disease due to hypertension; Secondary hyperparathyroidism (CMS-HCC) Social History Tobacco Use Types Packs/Day Years Used Date Smoking Tobacco: Former Cigarettes Q uit: 2015 Passive Smoke Exposure: Past Smokeless Tobacco: Never Tobacco Cessation:Counseling Given: No Alcohol Use Standard Drinks/Week Comments Yes 0 (1 standard drink = 0.6 oz pur e alcohol) Sex and Gender Information Value Date Recorded Sex Assigned at Not on file Gender Identity Not on file Sexual Orientation Not on file documented as of this encounter Last Filed Vital Signs Vital Sign Reading Time Taken Comments Blood Pressure 142/94 07/30/2023 12:59 PM CDT Pulse 85 07/30/2023 12:59 PM CDT Temperature 36.7 ??C (98 ??F) 07/30/2023 12:59 PM CDT Respiratory Rate - - Oxygen Saturation - - Inhaled Oxygen Concentration - - Weight 99.3 kg (219 lb) 07/30/2023 12:59 PM CDT Height - - Body Mass Index 31.42 06/23/2023 2:32 PM CDT documented in this encounter Progress Notes * TAMMI Staples - 07/30/2023 1:00 PM CDTSummary: CKD [facility] Richy Kelly Jr. Date of : 1945 Date of Service: 07/30/2023 Primary care provider: OREN CNOTRERAS MD Primary tube man: Dr. Mitch Ferreira HPI: Richy Kelly Jr. is a 77 y.o. male who presents for follow up and education of [facility]. PMH significant for HTN, HLD, and prostrate cancer. He last saw Dr. Ferreira in June to establish care. Since then, there has not been any changes to his health. He notes his had a fall last week and broke her shoulder/arm. 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 Energy level has been ok. He complains of chronic fatigue that remains unchanged. No itching, or N/V. Appetite is good. Food tastes normal. No abdominal pain, constipation, diarrhea, fever or chills. Home blood pressures have been: 120s/70s. No lightheadedness or dizziness. No chest pain, shortnessof breath or swelling. He is taking Amlodipine 5mg at bedtime, Lisinopril 20mg and Metoprolol XL 100mg daily. No issues with urination. No dysuria, hematuira, pelvic pain, flank pain, or decrease in urine output. He is drinking about 2L daily of water and iveth yamilex. He drinks 1 cup of coffee in the morning. He is following a low sodium, potassium, and protein diet due to research online prior to visit today. Also, he is working on weight loss. He is down 5lbs from his visit last month. He avoids NSAIDs. Past Medical History: Past Medical History: Diagnosis Date Anxiety state Arthropathy, unspecified, site unspecified Asthma Cerebral artery occlusion, unspecified, with cerebral infarction ([facility]) Chronic kidney disease Depressive disorder Essential hypertension Past Surgical History: Procedure Laterality Date EYE SURGERY FRACTURE SURGERY PROSTATE SURGERY does not have a problem list on file. Social and Family History: Family History Problem Relation Age of Onset Drug abuse Mother Depression Mother Arthritis Mother Alcohol abuse Mother Early Father defects Father Arthritis Father Alcohol abuse Father Arthritis Brother Multiple sclerosis Daughter Richy Gaitan Robin Doll. reports that he quit smoking about 9 years ago. His smoking use included cigarettes. He has been exposed to tobacco smoke. He has never used smokeless tobacco. He reports current alcohol use. He reports that he does not use drugs. Medications: Current Outpatient Medications: amLODIPine (NORVASC) 5 MG tablet, Take 5 mg by mouth 1 (one) time each day, Disp: , Rfl: aspirin (ST KRISTI) 81 MG EC tablet, Take 1 tablet by mouth 1 (one) time each day, Disp: , Rfl: atorvastatin (LIPITOR) 20 MG tablet, Take 20 mg by mouth 1 (one) time each day, Disp: , Rfl: busPIRone (BUSPAR) 5 MG tablet, Take 5 mg by mouth in the morning and 5 mg in the evening., Disp: ,Rfl: cholecalciferol, vitamin D3, (D-5000) 5,000 Units tablet tablet, Take 5,000 Units by mouth 1 (one) time each day, Disp: , Rfl: diphenhydrAMINE-acetaminophen (TYLENOL PM) 25-500 MG per tablet, Take 2 tablets by mouth at night if needed for sleep, Disp: , Rfl: ipratropium-albuterol (Combivent Respimat) 20-100 MCG/ACT inhaler, Inhale 1 puff in the morning and1 puff at noon and 1 puff in the evening and 1 puff before bedtime., Disp: , Rfl: lisinopril (PRINIVIL) 20 MG tablet, Take 20 mg by mouth 1 (one) time each day, Disp: , Rfl: metoprolol succinate XL (TOPROL-XL) 100 MG 24 hr tablet, Take 100 mg by mouth 1 (one) time each day, Disp: , Rfl: omeprazole (PriLOSEC) [address] capsule, Take 20 mg by mouth 1 (one) time each day, Disp: , Rfl: sertraline (ZOLOFT) 100 MG tablet, Take 150 mg by mouth 1 (one) time each day, Disp: , Rfl: tiZANidine (ZANAFLEX) 4 MG tablet, Take 2-4 mg by mouth every 8 (eight) hours if needed for muscle spasms, Disp: , Rfl: Allergies: Richy Kelly Jr. has No Known Allergies. Review of Systems: Review of Systems Constitutional: Positive for fatigue. Negative for activity change, appetite change, chills, fever and unexpected weight change. HENT: Negative for congestion, rhinorrhea and sore throat. Respiratory: Negative for cough, shortness of breath, wheezing and stridor. Cardiovascular: Negative for chest pain, palpitations and leg swelling. Gastrointestinal: Negative for abdominal distention, abdominal pain, constipation, diarrhea, nauseaand vomiting. Genitourinary: Positive for nocturia. Negative for bladder incontinence, decreased urine volume, difficulty urinating, dysuria, enuresis, flank pain, frequency, hematuria and urgency. Skin: Negative. Neurological: Negative for dizziness, weakness, light-headedness and headaches. ROS: A 12 system review of systems was negative other than noted here or above. Physical Exam: BP (!) 142/94 (BP Location: Left arm, Patient Position: Sitting, BP Cuff Size: Adult) Pulse 85 Temp 98 ??F (36.7 ??C) (Temporal) BMI 31.42 kg/m?? Physical Exam Vitals reviewed. Constitutional: General: He is not in acute distress. Appearance: He is well-developed and well-nourished. Neurological: Mental Status: He is alert and oriented to person, place, and time. Psychiatric: Mood and Affect: Mood and affect normal. Behavior: Behavior normal. Thought Content: Thought content normal. Judgment: Judgment normal. Labs and Imaging: Labs were reviewed in Care Everywhere. Results: No visits with results within 1 Day(s) from this visit. Latest known visit with results is: Orders Only on 06/23/2023 Component Date Value Ref Range Status Protein, Serum/Plasma 06/23/2023 7.0 6.1 - 8.1 g/dL Final Albumin, Serum/Plasma 06/23/2023 4.3 3.8 - 4.8 g/dL Final Alpha 1 globulin, Serum/Plasma 06/23/2023 0.3 0.2 - 0.3 g/dL Final Alpha 2 globulin, Serum/Plasma 06/23/2023 0.8 0.5 - 0.9 g/dL Final Beta 1 globulin, Serum/Plasma 06/23/2023 0.4 0.4 - 0.6 g/dL Final Beta 2 globulin, Serum/Plasma 06/23/2023 0.3 0.2 - 0.5 g/dL Final Gamma globulin, Serum/Plasma 06/23/2023 0.9 0.8 - 1.7 g/dL Final Protein Fractions, Serum/Plasma 06/23/2023 No restricted band (M-spike) seen. Final Glucose, Serum/Plasma 06/23/2023 89 65 - 99 mg/dL Final Comment: Fasting reference interval Urea nitrogen, Serum/Plasma (BUN) 06/23/2023 31 (H) 7 - 25 mg/dL Final Creatinine, Serum/Plasma 06/23/2023 2.70 (H) 0.70 - 1.28 mg/dL Final Estimated Glomerular Filtration Ra* 06/23/2023 24 (L) > OR = 60 mL/min/1.73m2 Final Urea nitrogen/Creatinine, Serum/Pl* 06/23/2023 11 6 - 22 (calc) Final Sodium, Serum/Plasma 06/23/2023 140 135 - 146 mmol/L Final Potassium, Serum/Plasma 06/23/2023 4.8 3.5 - 5.3 mmol/L Final Chloride, Serum/Plasma 06/23/2023 106 98 - 110 mmol/L Final Carbon dioxide CO2), total, Serum/* 06/23/2023 27 20 - 32 mmol/L Final Calcium, Serum/Plasma 06/23/2023 9.4 8.6 - 10.3 mg/dL Final Phosphate, Serum/Plasma 06/23/2023 3.3 2.1 - 4.3 mg/dL Final Albumin, Serum/Plasma 06/23/2023 4.6 3.6 - 5.1 g/dL Final Color of Urine 06/23/2023 DARK YELLOW YELLOW Final Appearance of Urine 06/23/2023 CLEAR CLEAR Final Specific gravity of Urine 06/23/2023 1.019 1.001 - 1.035 Final pH of Urine 06/23/2023 < OR = 5.0 5.0 - 8.0 Final Glucose, Urine 06/23/2023 NEGATIVE NEGATIVE Final Bilirubin, total, Urine 06/23/2023 NEGATIVE NEGATIVE Final Ketones, Urine 06/23/2023 TRACE (A) NEGATIVE Final Hemoglobin, Urine 06/23/2023 NEGATIVE NEGATIVE Final Protein, Urine 06/23/2023 TRACE (A) NEGATIVE Final Nitrite, Urine 06/23/2023 NEGATIVE NEGATIVE Final Leukocyte esterase, Urine 06/23/2023 NEGATIVE NEGATIVE Final Leukocytes, Urine sediment 06/23/2023 NONE SEEN < OR = 5 /HPF Final Erythrocytes, Urine sediment 06/23/2023 NONE SEEN < OR = 2 /HPF Final Epithelial cells, squamous, Urine * 06/23/2023 NONE SEEN < OR = 5 /HPF Final Bacteria, Urine sediment 06/23/2023 NONE SEEN NONE SEEN /HPF Final Hyaline casts, Urine sediment 06/23/2023 NONE SEEN NONE SEEN /LPF Final Service comment 06/23/2023 Final Comment: This urine was analyzed for the presence of WBC, RBC, bacteria, casts, and other formed elements. Only those elements seen were reported. Hepatitis B virus surface Ab, Serum 06/23/2023 NON-REACTIVE NON-REACTIVE Final Hepatitis C virus Ab, Serum/Plasma 06/23/2023 NON-REACTIVE NON-REACTIVE Final Comment: HCV antibody was non-reactive. There is no laboratory evidence of HCV infection. In most cases, no further action is required. However, if recent HCV exposure is suspected, a test for HCV RNA (test code 52834) is suggested. For additional information please refer to http://FREEjit.TrovaGene/faq/VUA45p7 (This link is being provided for informational/ educational purposes only.) Our records indicate that you have ordered a client custom reflex order code. Only the initial test was performed because we do not have a client custom reflex testing authorization request form on file for you. Please contact a vp client services if you would like additional testing done on this patient or contact your transportation sales consultant to obtain a client custom reflex testing authorization request form. Hepatitis B virus surface Ag, Seru* 06/23/2023 NON-REACTIVE NON-REACTIVE Final Comment: Our records indicate that you have ordered a client custom reflex order code. Only the initial test was performed because we do not have a client custom reflex testing authorization request form on file for you. Please contact a vp client services if you would like additional testing done on this patient or contact your transportation sales consultant to obtain a client custom reflex testing authorization request form. For additional information, please refer to http://FREEjit.TrovaGene/faq/LHG439 (This link is being provided for informational/ educational purposes only.) TSH, Serum/Plasma 06/23/2023 0.79 0.40 - 4.50 mIU/L Final PTH, Intact, Serum/Plasma 06/23/2023 118 (H) 16 - 77 pg/mL Final Comment: Interpretive Guide Intact PTH Calcium ------- Normal Parathyroid Normal Normal Hypoparathyroidism Low or Low Normal Low Hyperparathyroidism Primary Normal or High High Secondary High Normal or Low Tertiary High High Non-Parathyroid Hypercalcemia Low or Low Normal High Calcidiol, Serum/Plasma 06/23/2023 72 30 - 100 ng/mL Final Comment: Vitamin D Status 25-OH Vitamin D: Deficiency: <20 ng/mL Insufficiency: 20 - 29 ng/mL Optimal: > or = 30 ng/mL For 25-OH Vitamin D testing on patients on D2-supplementation and patients for whom quantitation of D2 and D3 fractions is required, the QuestAssureD() 25-OH VIT D, (D2,D3), LC/MS/MS is recommended: order code 35608 (patients >2yrs). See Note 1 Note 1 For additional information, please refer to http://education.Adiana/faq/TGN270 (This link is being provided for informational/ educational purposes only.) Creatinine, Urine 06/23/2023 216 20 - 320 mg/dL Final Protein/Creatinine, Urine 06/23/2023 120 25 - 148 mg/g creat Final Protein/Creatinine, Urine 06/23/2023 0.120 0.025 - 0.148 mg/mg creat Final Protein, Urine 06/23/2023 26 (H) 5 - 25 mg/dL Final Albumin/Protein, total 06/23/2023 100 % Final Alpha 1 globulin/Protein, total 06/23/2023 0 % Final Alpha 2 globulin/Protein, total 06/23/2023 0 % Final Beta globulin/Protein, total 06/23/2023 0 % Final Gamma globulin/Protein, total 06/23/2023 0 % Final Protein Fractions, Urine 06/23/2023 Final Comment: Agarose electrophoresis of urine reveals albumin. No abnormal protein is observed. The supplier of the testing reagents for this assay has changed. Detection of small monoclonal proteins may vary by test system. Urine immunofixation is suggested if clinically indicated and not already ordered. Referrals: CKD Education: Referred Date Completed: 07/07/23 Modality Education: Referred Date Completed: 07/07/23 Home Modality Education: Referred Date Completed: 07/07/23 Provider Modality Education: Modality Planning: Access Type(s): ABSTRACTOR Status: Transplant Status: Assessment/Plan: CKD Stage IV secondary to HTN and NSAID use. Gradual progression. On 06/22, creatinine 2.70 with eGFR24. History of proteinuria on ACEI. Renal ultrasound on 07/01 was normal. Education provided on chronic kidney disease including functions of the kidney, staging of CKD, common causes of CKD, and goal of preventing progression. Discussed symptoms of uremia. Also provided education on treatment options for kidney failure including: hemodialysis, peritoneal dialysis, medical management, and transplant. Discussed access for each type of dialysis and preparation needed. Discussed why fistula is preferred over a catheter for hemodialysis. Discussed renal diet (low sodium). He has no additional questions today. He is uncertain at this time if he would like to pursue [facility]. He plans to do more research on his own. Encouraged to stay well hydrated. Avoid NSAIDs. Secondary management of blood pressure control. HTN Essential (Primary). Controlled. Elevated in clinic today at 142/94 due to stress of driving [facility] on his own. Continue taking Amlodipine 5mg, Lisinopril 20mg, and Metoprolol XL 100mg daily. Continue to monitor home blood pressures. Anemia in CKD. Will need to update with next set of labs. Secondary hyperparathyroidism. On 06/22, Vit D 72 and PTH 118. Continue to monitor. Continue taking Vit D PO 1000 units daily. History of prostrate cancer s/p cryotherapy (2005) in remission. Had FU with Dr. Lopez on 07/20. States he needs to schedule a nuclear scan. HLD. In atorvastatin COPD F/u plan: - Return to clinic in [address] Ferreira - Will not obtain laboratories today since recently obtained. YAN StaplesC [facility] documented in this encounter Plan of Treatment Upcoming Encounters Date Type Department Care Team (Late st Contact Info) Description 10/29/2023 2:30 PM CDT Office Visit [facility] [address] [place] [address] Mitch Ferreira MD [address] [facility] [address] [place] [address] documented as of this encounter Visit Diagnoses Diagnosis Chronic kidney disease stage 4 (CMS-HCC)- Primary Proteinuria, not otherwise specified Essential hypertension Chronic kidney disease due to hypertension Secondary hyperparathyroidism (CMS-HCC) documented in this encounter Care Teams Motor Transport Inspector Relationship Specialty Start Date End Date Oren Contreras MD [address] [place] [id number] PCP - General 06/16/23 documented as of this encounter
--- OUTSIDE RECORDS SUMMARY | 2023-09-11 13:44 | XMS_ITS | Clinical Summary ---
Author Organization [facility] Gina lawrence Address [address] [place] [phone] Phone Care Team Providers Care Egg Buyer Name Role Phone Oren Marshall MD Primary Care Provider [phone] Allergies No known active allergies Medications Medication Sig Dispensed Refills Start Date End Date Status amLODIPine (NORVASC) 5 MG tablet Take 5 mg by mouth 1 (one) time each day Active sertraline (ZOLOFT) 100 MG tablet Take 150 mg by mouth 1 (one) time each day Active atorvastatin (LIPITOR) 20 MG tablet Take 20 mg by mouth 1 (one) time each day Active lisinopril (PRINIVIL) 20 MG tablet Take 20 mg by mouth 1 (one) time each day Active tiZANidine (ZANAFLEX) 4 MG tablet Take 2-4 mg by mouth every 8 (eight) hours if needed for muscle spasms Active busPIRone (BUSPAR) 5 MG tablet Take 5 mg by mouth in the morning and 5 mg in the evening. Active aspirin (ST KRISTI) 81 MG EC tablet Take 1 tablet by mouth 1 (one) time each day 08/12/2021 Active cholecalciferol, vitamin D3, (D-5000) 5,000 Units tablet tablet Take 5,000 Units by mouth 1 (one) time each day 06/06/2015 Active metoprolol succinate XL (TOPROL-XL) 100 MG 24 hr tablet Take 100 mg by mouth 1 (one) time each day 10/06/2022 Active ipratropium-albuterol (Combivent Respimat) 20-100 MCG/ACT inhaler Inhale 1 puff in the morning and 1 puff at noon and 1 puff in the evening and 1 puff before bedtime. 10/06/2022 Active diphenhydrAMINE-acetam inophen (TYLENOL PM) 25-500 MG per tablet Take 2 tablets by mouth at night if needed for sleep Active omeprazole (PriLOSEC) [address] capsule Take 20 mg by mouth 1 (one) time each day Active Encounters Date Type Department Care Team Description 08/12/2023 Telephone [address] [place] [address] Netta Houston RN 07/30/2023 1:00 PM CDT Clinical Support [employer] [address] [place] [address] Mabel Bhatti PA Chronic kidney disease stage 4 ([facility]) (Primary Dx); Proteinuria, not otherwise specified; Essential hypertension; Chronic kidney disease due to hypertension; Secondary hyperparathyroidism ([facility]) 07/03/2023 Telephone [address] [place] [address] Neida Koch RN Results 06/23/2023 2:30 PM CDT Office Visit [address] [place] [address] Mitch Ferreira MD Chronic kidney disease stage 4 ([facility]) (Primary Dx); Hypertensive renal disease 06/23/2023 Orders Only [address] [place] [address] Mitch Ferreira MD 06/23/2023 Telephone [address] [place] [address] Mitch Ferreira MD from Last 3 Months Immunizations Name Administration Dates Next Due Fluzone High-Dose 12/11/2022 Influenza Split High Dose Pr eservative Free IM 11/23/2018,11/26/2017 Influenza TIV (IM) 12/17/2014,11/16/2014 Influenza, Injectable, Quadrivalent 11/15/2021 Influenza, Unspecified 11/30/2020,2008,12/21/2007,12/01 Pfizer Sars-cov-2 Vaccination 12/11/2022 ,12/03/2021,08/12/2021,01/08,04/23/2020,04/05/2020,04/02/2020 ,03/15/2020 Pneumococcal Conjugate 13-Valent 02/24/2017 Pneumococcal Polysaccharide 11/23/2018 Td 08/09/2004 Td, Unspecified 08/09/2004 Tdap 02/24/2017 Zoster Recombinant 11/06/2021,09/04/2021 Family History Medical History Relation Comments Arthritis Brother Multiple sclerosis Daughter Alcohol abuse Father Arthritis Father defects Father Early Father Alcohol abuse Mother Arthritis Mother Depression Mother Drug abuse Mother Relation Status Comments Brother Daughter Father Mother Social History Tobacco Use Types Packs/Day Years Used Date Smoking Tobacco: Former Cigarettes Q uit: 2014 Passive Smoke Exposure: Past Smokeless Tobacco: Never [...] (219 lb) 07/30/2023 12:59 PM CDT Height 177.8 cm (5' 10) 06/23/2023 2:32 PM CDT Body Mass Index 31.42 06/23/2023 2:32 PM CDT Plan of Treatment Upcoming Encounters Date Type Department Care Team (Late st Contact Info) Description 10/29/2023 2:30 PM CDT [facility] [address] [place], [place] [phone] Mitch Ferreira MD [address] [facility] [address] [place], [place] [address] Health Maintenance Due Date Last Done Comments COVID-19 Vaccine (2022-2 4 season) 2023 12/11/2022, 12/03/2021, 08/12/2021, Additional history exists Influenza Vaccine (#1) 2023 , 12/17/2014, 11/16/2014, Additional history exists Pneumococcal PPSV23/PCV13 65 + Years / High and Highest Risk Completed 11/23/2018, 02/24/2017 Procedures Procedure Name Priority Date/Time Associated Diagnosis Comments PROTEIN ELECTROPHORESIS, URINE, RANDOM Routine 06/23/2023 2:30 PM CDT VITAMIN D, 25-HYDROXY, SERUM Routine 06/23/2023 2:30 PM CDT PTH INTACT W/O CALCIUM, SERUM Routine 06/23/2023 2:30 PM CDT THYROID STIMULATING HORMONE (TSH), SERUM Routine 06/23/2023 2:30 PM CDT HEPATITIS B SURFACE AG (HBSAG) W/REFL CONFIRM (REFL) Routine 06/23/2023 2:30 PM CDT HEPATITIS C AB W/REFL TO HCV RNA, QN, PCR (REFL) Routine 06/23/2023 2:30 PM CDT HEPATITIS B SURFACE AB, QL, SERUM Routine 06/23/2023 2:30 PM CDT URINALYSIS, COMPLETE Routine 06/23/2023 2:30 PM CDT RENAL FUNCTION PANEL (RFP) Routine 06/23/2023 2:30 PM CDT PROTEIN ELECTROPHORESIS, SERUM Routine 06/23/2023 2:30 PM CDT from Last 3 Months Results * Hep C AB W/Reflex to HCV RNA, QN, PCR (REFL) (06/23/2023 2:30 PM CDT) Hepatitis C virus Ab, Serum/Plasma NON-REACT PADMA NON-REACT PADMA SUSANNE BRITTANEY (WDL) Comment: HCV antibody was non-reactive. There is no laboratory evidence of HCV infection. In most cases, no further action is required. However, if recent HCV exposure is suspected, a test for HCV RNA (test code 43091) is suggested. For additional information please refer to http://LoveLive.TV.[employer] Energy/faq/STB15i3 (This link is being provided for informational/ educational purposes only.) Our records indicate that you have ordered a client custom reflex order code. Only the initial test was performed because we do not have a client custom reflex testing authorization request form on file for you. Please contact a client service and consulting manager if you would like additional testing done on this patient or contact your salesperson books to obtain a client custom reflex testing authorization request form. 06/23/2023 2:30 PM CDT 06/23/2023 2:31 PM CDT Narrative SUSANNE QUISPE (TONYAL) - 07/08/2023 2:12 PM CDT AN UPDATE OR CORRECTION HAS BEEN MADE TO NAME Resulting Agency Comment Performing Organization Information: ?Site ID: [id number] ?Name: [facility] ?Address: [address] [place] [phone] ?Director: Gurdeep Bob Mitch Ferreira MD LAB BLOOD ORDERABLES SUSANNE BARROSOJOSE CRUZ (WDBryan) * Hepatitis B Surface Ag (HBsAg) w/Refl Confirm (Refl) (06/23/2023 2:30 PM CDT) Hepatitis B virus surface Ag, Serum/Plasma NON-REACT PADMA NON-REACT PADMA SUSANNE QUISPE (WDL) Comment: Our records indicate that you have ordered a client custom reflex order code. Only the initial test was performed because we do not have a client custom reflex testing authorization request form on file for you. Please contact a client service and consulting manager if you would like additional testing done on this patient or contact your salesperson books to obtain a client custom reflex testing authorization request form. For additional information, please refer to http://education.CMOSIS nv.Ivantis/faq/TVB245 (This link is being provided for informational/ educational purposes only.) 06/23/2023 2:30 PM CDT 06/23/2023 2:31 PM CDT Narrative SUSANNE BARROSODALE (WDL) - 07/08/2023 2:12 PM CDT AN UPDATE OR CORRECTION HAS BEEN MADE TO NAME Resulting Agency Comment Performing Organization Information: ?Site ID: [id number] ?Name: [facility] ?Address: [address] [place] [address] [place] [address] ?Director: Gurdeep Bob Mitch Ferreira MD LAB BLOOD ORDERABLES SUSANNE QUISPE (SYLVIE) * Vitamin D, 25-Hydroxy, Serum (06/23/2023 2:30 PM CDT) Calcidiol, Serum/Plasma 72 30 - 100 ng/mL SUSANNE QUISPE (WDBryan) Comment: Vitamin D Status ? 25-OH Vitamin D: Deficiency: ?<20 ng/mL Insufficiency: ? 20 - 29 ng/mL Optimal: ? > or = 30 ng/mL For 25-OH Vitamin D testing on patients on D2-supplementation and patients for whom quantitation of D2 and D3 fractions is required, the QuestAssureD() 25-OH VIT D, (D2,D3), LC/MS/MS is recommended: order code [id number] (patients >2yrs). See Note 1 Note 1 For additional information, please refer to http://LoveLive.TV.Pro V&V/faq/GZJ823 (This link is being provided for informational/ educational purposes only.) 06/23/2023 2:30 PM CDT 06/23/2023 2:31 PM CDT Narrative SUSANNE - DHARMESHDALE (WDL) - 07/08/2023 2:12 PM CDT AN UPDATE OR CORRECTION HAS BEEN MADE TO NAME Resulting Agency Comment Performing Organization Information: ?Site ID: [id number] ?Name: [facility] ?Address: [address] [place] [address] [place] [address] ?Director: Gurdeep Bob Mitch Ferreira MD LAB BLOOD ORDERABLES [facility] (WDL) * (ABNORMAL) Urinalysis, Complete (06/23/2023 2:30 PM CDT) Color of Urine DARK YELLOW YELLOW [facility] ([facility]) Appearance of Urine CLEAR CLEAR [facility] ([facility]) Specific gravity of Urine 1.019 1.001 - 1.035 [facility] (W[facility]) pH of Urine < OR = 5.0 5.0 - 8.0 [facility] (W[facility]) Glucose, Urine NEGATIVE NEGATIVE [facility] ([facility]) Bilirubin, total, Urine NEGATIVE NEGATIVE [facility] ([facility]) Ketones, Urine TRACE(A) NEGATIVE [facility] ([facility]) Hemoglobin, Urine NEGATIVE NEGATIVE [facility] ([facility]) Protein, Urine TRACE(A) NEGATIVE [facility] ([facility]) Nitrite, Urine NEGATIVE NEGATIVE [facility] ([facility]) Leukocyte esterase, Urine NEGATIVE NEGATIVE [facility] ([facility]) Leukocytes, Urine sediment NONE SEEN < OR = 5 /HPF [facility] ([facility]) Erythrocytes, Urine sediment NONE SEEN < OR = 2 /HPF [facility] ([facility]) Epithelial cells, squamous, Urine sediment NONE SEEN < OR = 5 /HPF [facility] ([facility]) Bacteria, Urine sediment NONE SEEN NONE SEEN /HPF [facility] ([facility]) Hyaline casts, Urine sediment NONE SEEN NONE SEEN /LPF [facility] ([facility]) Service comment [facility] ([facility]) Comment: This urine was analyzed for the presence of WBC, RBC, bacteria, casts, and other formed elements. Only those elements seen were reported. 06/23/2023 2:30 PM CDT 06/23/2023 2:31 PM CDT Narrative [facility] ([facility]) - 07/08/2023 2:12 PM CDT AN UPDATE OR CORRECTION HAS BEEN MADE TO NAME Resulting Agency Comment Performing Organization Information: ?Site ID: [id number] ?Name: [facility] ?Address: [address] [place] [phone] ?Director: Gurdeep Bob Mitch Ferreira MD LAB URINE ORDERABLES [facility] (W[facility]) * (ABNORMAL) Renal Function Panel (RFP) (06/23/2023 2:30 PM CDT) Glucose, Serum/Plasma 89 65 - 99 mg/dL [facility] (WDL) Comment: ? Fasting reference interval Urea nitrogen, Serum/Plasma (BUN) 31(H) 7 - 25 mg/dL [facility] ([facility]) Creatinine, Serum/Plasma 2.70(H) 0.70 - 1.28 mg/dL [facility] ([facility]) Estimated Glomerular Filtration Rate (eGFR) 24(L) > OR = 60 mL/min/1.7 3m2 [facility] ([facility]) Urea nitrogen/Creati nine, Serum/Plasma 11 6 - 22 (calc) [facility] ([facility]) Sodium, Serum/Plasma 140 135 - 146 mmol/L [facility] ([facility]) Potassium, Serum/Plasma 4.8 3.5 - 5.3 mmol/L [facility] ([facility]) Chloride, Serum/Plasma 106 98 - 110 mmol/L [facility] ([facility]) Carbon dioxide CO2), total, Serum/Plasma 27 20 - 32 mmol/L [facility] ([facility]) Calcium, Serum/Plasma 9.4 8.6 - 10.3 mg/dL [facility] ([facility]) Phosphate, Serum/Plasma 3.3 2.1 - 4.3 mg/dL [facility] ([facility]) Albumin, Serum/Plasma 4.6 3.6 - 5.1 g/dL [facility] ([facility]) 06/23/2023 2:30 PM CDT 06/23/2023 2:31 PM CDT Narrative [facility] ([facility]) - 07/08/2023 2:12 PM CDT AN UPDATE OR CORRECTION HAS BEEN MADE TO NAME Resulting Agency Comment Performing Organization Information: ?Site ID: [id number] ?Name: [facility] ?Address: [address] [place] [phone] ?Director: Gurdeep Bob Mitch Ferreira MD LAB BLOOD ORDERABLES Performing Organization Address City/[facility]/ZIP Co de Phone Number [facility] ([facility]) * Thyroid Stimulating Hormone (TSH), Serum (06/23/2023 2:30 PM CDT) TSH, Serum/Plasma 0.79 0.40 - 4.50 mIU/L [facility] ([facility]) 06/23/2023 2:30 PM CDT 06/23/2023 2:31 PM CDT Narrative [facility] ([facility]) - 07/08/2023 2:12 PM CDT AN UPDATE OR CORRECTION HAS BEEN MADE TO NAME Resulting Agency Comment Performing Organization Information: ?Site ID: [id number] ?Name: [facility] ?Address: [address] [place] [phone] ?Director: Gurdeep Bob Mitch Ferreira MD LAB BLOOD ORDERABLES [facility] ([facility]) * (ABNORMAL) Protein Electrophoresis, Urine, Random (06/23/2023 2:30 PM CDT) Creatinine, Urine 216 20 - 320 mg/dL [facility] ([facility]) Protein/Creatinine, Urine 120 25 - 148 mg/g creat [facility] ([facility]) Protein/Creatinine, Urine 0.120 0.025 - 0.148 mg/mg creat [facility] ([facility]) Protein, Urine 26(H) 5 - 25 mg/dL [facility] ([facility]) Albumin/Protein, total 100 % [facility] ([facility]) Alpha 1 globulin/Protein, total 0 % [facility] ([facility]) Alpha 2 globulin/Protein, total 0 % [facility] ([facility]) Beta globulin/Protein, total 0 % [facility] ([facility]) Gamma globulin/Protein, total 0 % [facility] ([facility]) Protein Fractions, Urine [facility] ([facility]) Comment: Agarose electrophoresis of urine reveals albumin. No abnormal protein is observed. The supplier of the testing reagents for this assay has changed. ??Detection of small monoclonal proteins may vary by test system. ??Urine immunofixation is suggested if clinically indicated and not already ordered. 06/23/2023 2:30 PM CDT 06/23/2023 2:31 PM CDT Narrative [facility] (W[facility]) - 07/08/2023 2:12 PM CDT AN UPDATE OR CORRECTION HAS BEEN MADE TO NAME Resulting Agency Comment Performing Organization Information: ?Site ID: [place] ?Name: [facility] ?Address: [address] [place] [phone] ?Director: Tristan Batres MD Mitch Ferreira MD LAB URINE ORDERABLES S[facility]ANNE BARROS[facility]ALE (WDL) * Hepatitis B Surface AB, QL, Serum (06/23/2023 2:30 PM CDT) Hepatitis B virus surface Ab, Serum NON-REACTI VE NON-REACTI VE [facility] (W[facility]) 06/23/2023 2:30 PM CDT 06/23/2023 2:31 PM CDT Narrative [facility] ([facility]) - 07/08/2023 2:12 PM CDT AN UPDATE OR CORRECTION HAS BEEN MADE TO NAME Resulting Agency Comment Performing Organization Information: ?Site ID: ?Name: [facility] ?Address: [address] [place] [address] [place] [address] ?Director: Gurdeep Bob Mitch Ferreira MD LAB BLOOD ORDERABLES [facility] ([facility]) * Protein Electrophoresis, Serum (06/23/2023 2:30 PM CDT) Pathologist [facility] Protein, Serum/Plasma 7.0 6.1 - 8.1 g/dL [facility] (W[facility]) Albumin, Serum/Plasma 4.3 3.8 - 4.8 g/dL [facility] ([facility]) Alpha 1 globulin, Serum/Plasma 0.3 0.2 - 0.3 g/dL [facility] ([facility]) Alpha 2 globulin, Serum/Plasma 0.8 0.5 - 0.9 g/dL [facility] ([facility]) Beta 1 globulin, Serum/Plasma 0.4 0.4 - 0.6 g/dL [facility] ([facility]) Beta 2 globulin, Serum/Plasma 0.3 0.2 - 0.5 g/dL [facility] ([facility]) Gamma globulin, Serum/Plasma 0.9 0.8 - 1.7 g/dL [facility] ([facility]) Protein Fractions, Serum/Plasma No restricted band (M-spike) seen. [facility] ([facility]) 06/23/2023 2:30 PM CDT 06/23/2023 2:31 PM CDT Narrative [facility] ([facility]) - 07/08/2023 2:12 PM CDT AN UPDATE OR CORRECTION HAS BEEN MADE TO NAME Resulting Agency Comment Performing Organization Information: ?Site ID: [place] ?Name: [facility] ?Address: [address] [place] [address] [place] [address] ?Director: Tristan Batres MD Mitch Ferreira MD LAB BLOOD ORDERABLES SUSANNE QUISPE (WDL) * (ABNORMAL) PTH Intact w/o Calcium, Serum (06/23/2023 2:30 PM CDT) PTH, Intact, Serum/Plasma 118(H) 16 - 77 pg/mL SUSANNE QUISPE (WDL) Comment: Interpretive Guide ?Intact PTH ? Calcium ? ------- Normal Parathyroid ?Normal ? Normal Hypoparathyroidism ?Low or Low Normal ?Low Hyperparathyroidism ?? Primary ?Normal or High ? High ?? Secondary ?High ? Normal or Low ?? Tertiary ? High ? High Non-Parathyroid ?? Hypercalcemia ?Low or Low Normal ?High 06/23/2023 2:30 PM CDT 06/23/2023 2:31 PM CDT Narrative SUSANNE QUISPE (WDL) - 07/08/2023 2:12 PM CDT AN UPDATE OR CORRECTION HAS BEEN MADE TO NAME Resulting Agency Comment Performing Organization Information: ?Site ID: [id number] ?Name: [facility] ?Address: [address] [place], [place] [address] [address] ?Director: Gurdeep Bob Mitch Ferreira MD LAB BLOOD ORDERABLES SUSANNE QUISPE (WDL) from Last 3 Months Care Teams Egg Buyer Relationship Specialty Start Date End Date Oren Marshall MD [address] [place] [address] PCP - General 06/16/23
--- OUTSIDE RECORDS SUMMARY | 2023-09-11 13:44 | XMS_ITS | Data Portability ---
Author Organization MD - [facility] Address [address] [place] [address] Care Team Providers Care Planner Internship Name Role Phone FERNANDO CONTRERAS Primary Care Provider Assessment No assessment recorded. Plan of Treatment Reminders Order Date Submit Date Provider Last Modified By Organization Details Last Modified Time Details Appointments H[facility] 60 2023 01:30P M Lloyd Lopez MD Not available Not available Not available Lab urinalysi s, dipstick 2023 024 [email or web address] [facility], [address], [address], [place], [address], 07/21/2023 11:09:03 Referral None recorded. Procedures bladder scan (PROC) 2023 024 [email or web address] [facility], [address], [address], [place], [address], 07/21/2023 11:10:03 Surgeries None recorded. Imaging None recorded. Medication Orders None recorded. Patient TargetsNo targets recorded. Patient Instructions Encounter Date Encounter Id Patient Instructions Last Modified By Organization Details Last Modified Time 07/21/2023 [id number] I will review ou r old records for biopsy reports, procedure notes and old PSA's, will set up for pylarify scan to determine location of prostate disease [email or web address] Not available 07/21/2023 11:24:43 Reason for Referral None Reported. Results Created Date Observation Date Name Description Value Unit Range Abnormal Flag LastModifiedBy Organization Detail LastModifiedTime 07/21/19 24 07/21/2023 bladd er scan (PROC ) Volume (in mL) 46ml Not Available [address], [place], [address], 07/21/2023 11:09:55 07/21/19 24 07/21/2023 urina lysis , dipst ick Color-Status Yellow Not Available [address], [place], [address], 07/21/2023 11:08:07 07/21/19 24 07/21/2023 urina lysis , dipst ick Clarity-Stat us Clear Not Available [address], [place], [address], 07/21/2023 11:08:07 07/21/19 24 07/21/2023 urina lysis , dipst ick Bilirubin-St atus Small Not Available [address], [place], [address], 07/21/2023 11:08:07 07/21/19 24 07/21/2023 urina lysis , dipst ick Sp [place]-Stat us 1.025 Not Available [address], [place], [address], 07/21/2023 11:08:07 07/21/19 24 07/21/2023 urina lysis , dipst ick pH-Status 5.5 Not Available [address], [place], [address], 07/21/2023 11:08:07 07/21/19 24 07/21/2023 urina lysis , dipst ick Protein-Stat us >=9.0 Not Available [address], [place], [address], 07/21/2023 11:08:07 07/21/19 24 07/21/2023 urina lysis , dipst ick Nitrates-Sta tus negati ve Not Available [address], [place], [address], 07/21/2023 11:08:07 07/21/19 24 07/21/2023 urina lysis , dipst ick Blood-Status Negati ve Not Available [address], [place], [address], 07/21/2023 11:08:07 07/21/19 24 07/21/2023 urina lysis , dipst ick Leuko-Status Negati ve Not Available [address], [place], [address], 07/21/2023 11:08:07 07/21/19 24 07/21/2023 urina lysis , dipst ick Specimen Type Voided Not Available [address], [place], [address], 07/21/2023 11:08:07 08/19/19 24 08/18/2023 PET-C T, skull base to mid-t high scan EXAM: PET CT PROSTA TE PSMA INITIA L LOCATI ON: [facility] DATE: 08/18/19 24 INDICA TION: Subseq uent [...] reted by: DR. LIZ SHEPHERD ON M.DShalini [facility] [address], [place], [address], 08/28/2023 14:21:05 Result Notes None recorded. Problems Name Status Onset Date Resolution Date Notes Provider Name and Address Organization Details Recorded Time Prostate specific antigen above reference range Active 07/17/19 16 R97.2 : Elevated prostate specific antigen [PSA] Not Available [facility] 08/04/2019 02:00:59 Problem Notes None recorded. Procedures Surgical History Date Name Laterality Status Provider Name and Address Organization Details Recorded Time Bladder Scan completed Luciano keller [facility] 07/21/2023 11:09:46 procedure on ankle completed Luciano keller [facility] 07/21/2023 11:09:02 Prostate Surgery completed Luciano keller [facility] 07/21/2023 11:09:09 Imaging Results Imaging Date Name Status LastModified by Organiz ation Details LastModified Time 08/18/2023 PET-CT, skull base to mid-thigh scan completed [email or web address] [address], [place], [address], 08/28/2023 14:21:05 Procedure Notes None recorded. Medical Equipment None [...] Updated DateTime 07/21/2023 177.8 cm 32.1 kg/m2 589523.69 g Luciano Martinez [facility] 07/21/2023 11:07:52 Social History Question Answer Notes LastModified by Organizat ion Details LastModified Time Tobacco Smoking Status Former Smoker Luciano keller [facility] 07/21/2023 11:08:41 What Is Your Level Of [...] ncer of colon Medical History Condition Response Diabetes N Sexually Transmitted Infection N Other N Bleeding Disorder N High Blood Pressure Y Kidney Stones N Cancer Y Lung Disease N Depression N High Cholesterol Y GERD/Acid Reflux N Heart Disease N Past Encounters Encounter ID Performer Location Encounter Start Date Encounter Closed Date Diagnosis/Indication Diagnosis SNOMED-CT Code [id number] [facility] Lopez MD [facility] [address] [address] 07/21/2023 10:54:57 07/22/2023 15:17:13 Prostate specific antigen above reference range [id number] Malignant tumor of prostate [id number] Health Concerns Section Related Observation LastModified by Organization Detai ls LastModified Time None Recorded Concern Status LastModified by Organization Details LastModified Time None Recorded Advance Directives Directive None Recorded Payers Encounter Date Sequence Insurance Name Policy Number Policy Garnica Covered Member ID Garnica Member ID Guarantor Name 07/21/2023 1 [place]: [employer] Richy Kelly [id number] Richy Kelly 07/21/2023 2 WPS - FOR LIFE (MEDICARE SUPPLEMENT) Richy Kelly [id number] Richy Kelly Notes Date Note Type Note [...] stage 4 CRF. Lloyd Lopez MD [address], [address], [facility] 07/21/2023 11:26:41
--- OUTSIDE RECORDS SUMMARY | 2023-09-11 13:45 | XMS_ITS | Encounter Summary ---
Author Organization [place] Address Formerly [facility] [place] [address] Care Team Providers Care Steward/Stewardess Smoke Room Name Role Phone Oren Marshall MD Primary Care Provider [phone] Reason for Referral * Diagnostic Imaging Ultrasound (Routine) - Pending Review Specialty Diagnoses / Procedures Referred By Contac t Referred To Contact Radiology. Diagnoses Chronic kidney disease, stage IV (severe) (H) Procedures US Renal Complete Non-Vascular Mitch Ferreira MD [facility] [address] [place] [address] Referral ID Status Reason Start Date Expiration Date V isits Requested Visits Authorized [id number] Pending Review 06/24/2023 06/23/2024 1 1 Reason for Visit * Diagnostic Imaging Ultrasound (Routine) - Pending Review Specialty Diagnoses / Procedures Referred By Contac t Referred To Contact Radiology. Diagnoses Chronic kidney disease, stage IV (severe) (H) Procedures US Renal Complete Non-Vascular Mitch Ferreira MD [facility] [address] [place] [address] Referral ID Status Reason Start Date Expiration Date V isits Requested Visits Authorized [id number] Pending Review 06/24/2023 06/23/2024 1 1 Encounter Details Date Type Department Care Team (Late st Contact Info) Description 07/02/2023 3:12 PM CDT - 07/02/2023 11:59 PM CDT Hospital Encounter [facility] [address] [place] [phone] Mitch Ferreira MD [facility] [address] [place] [address] Chronic kidney disease, stage IV (severe) (H) Discharge Disposition: Home or Self Care Social History Tobacco Use Types Packs/Day Years [...] on file documented as of this encounter Medications at Time of Discharge Medication Sig Dispensed Refills Start Date End Date Acetaminophen (TYLENOL PO) Take 1,000 mg by mouth 2 times daily AMLODIPINE BESYLATE PO Take 2.5 mg by mouth daily ATORVASTATIN CALCIUM PO Take 20 mg by mouth daily CITALOPRAM HYDROBROMIDE PO Take 20 mg by mouth daily HYDROcodone-acetaminophen (NORCO) 5-325 MG per tabletIndications:Prostat e CA (H) Take 1-2 tablets by mouth every 4 hours as needed for moderate to severe pain (Moderate to Severe Pain) 30 tablet 0 10/16/2015 Ipratropium-Albuterol (COMBIVENT RESPIMAT) 20-100 MCG/ACT inhaler Inhale 1 puff into the lungs 4 times daily LISINOPRIL PO Take 20 mg by mouth daily METOPROLOL TARTRATE PO Take 100 mg by mouth daily oxybutynin (DITROPAN) 5 MG tabletIndications:Prostat e CA (H) Take 1 tablet (5 mg) by mouth every 8 hours as needed for bladder spasms 30 tablet 1 10/17/2015 sulfamethoxazole-trimetho prim (BACTRIM DS,SEPTRA DS) 800-160 MG per tabletIndications:Prostat e CA (H) Take 1 tablet by mouth 2 times daily 14 tablet 0 10/16/2015 TAMSULOSIN HCL PO Take 0.4 mg by mouth daily VITAMIN D, CHOLECALCIFEROL, PO Take 5,000 Units by mouth daily documented as of this encounter Plan of Treatment Not on file documented as of this encounter Procedures Procedure Name Priority Date/Time Associated Diagnosis Comments US RENAL COMPLETE NON-VASCULAR Routine 07/02/2023 4:10 PM CDT Chronic kidney disease, stage IV (severe) (H) documented in this encounter Results * US Renal Complete Non-Vascular (07/02/2023 4:10 PM CDT) Anatomical Region Laterality Modality Abdomen/Pelvis Ultrasound Impressions 07/02/2023 4:24 PM CDT IMPRESSION: 1. No hydronephrosis. 2. Findings suggestive of chronic medical renal disease. EDIN BERMUDEZ MD SYSTEM ID: ??[id number] Narrative 07/02/2023 4:24 PM CDT US RENAL COMPLETE NON-VASCULAR ?? 07/02/2023 4:10 PM HISTORY: Chronic kidney disease, stage IV (severe) (H) COMPARISON: None. FINDINGS: Right Kidney: 10.8 cm. Increased cortical echogenicity. No hydronephrosis. Simple-appearing interpolar cyst measuring up to 1.8 cm, no specific follow-up recommended. Left Kidney: 11.5 ??cm. Increased cortical echogenicity. No hydronephrosis. Simple-appearing upper pole cyst measuring up to 2.8 cm, no specific follow-up recommended. Bladder: Only partially distended but otherwise unremarkable. Procedure Note Edin Bermudez MD - 07/02/2023 US RENAL COMPLETE NON-VASCULAR 07/02/2023 4:10 PM [...] Findings suggestive of chronic medical renal disease. EDIN BERMUDEZ MD SYSTEM ID: [id number] Mitch Ferreira MD [facility] ORDERABLES documented in this encounter Visit Diagnoses Diagnosis Chronic kidney disease, stage IV (severe) (H) Chronic kidney disease, Stage IV (severe) documented in this encounter Care Teams Steward/Stewardess Smoke Room Relationship Specialty Start Date End Date Oren Marshall MD PCP - General Family Practice 10/01/15 documented as of this encounter
--- OUTSIDE RECORDS SUMMARY | 2023-09-11 13:45 | XMS_ITS | Continuity of Care Document ---
Author Organization [facility] Address [address] [address] [place] [address] Phone Care Team Providers Care Corn Husker Machine Operator Name Role Phone Gilbert Sullivan MD Unavaila ble Advance Directives Directive Yes / No Effective Date File Name No Information Encounters Encounter Description Practice Location Reason(s) For Visit Diagnoses Date Provider Providers Copied on Encounter [facility] [address], [address] [address], [place], [place], [id number], [place] tel:[phone] [facility] No Information 3 Laurie Hunt. [address] [facility], [facility] [address], [place], [place], [address], [place]. tel:[phone] Family History Family Member Type Diagnosis Age At Onset No Information Payers Payer name Insurance type Covered constitution party ID Authoriza tion(s) No Information Social [...]
--- OUTSIDE RECORDS SUMMARY | 2023-09-11 13:45 | XMS_ITS | Clinical Summary ---
Author Organization [facility] Address [address] [place] [address]. [place] [address] Care Team Providers Care Service Delivery Director Name Role Phone Oren Marshall MD Primary Care Provider [phone] Allergies Active Allergy Reactions Criticality Noted Date [...] Problem Noted Date Diagnosed Date Hypoxia 10/16/2015 Encounters Date Type Department Care Team Description 07/02/2023 3:12 PM CDT - 07/02/2023 11:59 PM CDT Hospital Encounter [facility] [address] [place] [phone] Mitch Ferreira MD Chronic kidney disease, stage IV (severe) (H) Discharge Disposition: Home or Self Care 07/02/2023 Travel from Last 3 Months Social History Tobacco Use Types Packs/Day Years [...] ANNUAL WELLNESS VISIT 11/24/2012 GLUCOSE 10/15/2018 10/16/2015 PHQ-2 (once per calendar year) 2023 COVID-19 Vaccine (2022- season) 2023 12/11/2022, 12/03/2021, 08/12/2021, Additional history exists INFLUENZA VACCINE (#1) 2023 3, 11/15/2021, 11/15/2021, Additional history exists DTAP/TDAP/TD IMMUNIZATION (3 - Td or Tdap) 02/24/2027 02/24/2017, 08/09/2004, 08/09/2004 Pneumococcal Vaccine: 65+ Years Completed 11/23/2018, 02/24/2017 ZOSTER IMMUNIZATION Completed 11/06/2021, HPV IMMUNIZATION Aged Out No longer e [...] Chronic kidney disease, stage IV (severe) (H) GLUCOSE BY METER Routine 10/16/2015 3:42 PM CDT Prostate CA (H) from Last 3 Months or Most Recently Relevant to Health Maintenance Results * US Renal Complete Non-Vascular (07/02/2023 4:10 PM CDT) Anatomical Region Laterality Modality Abdomen/Pelvis Ultrasound Impressions 07/02/2023 4:24 PM CDT IMPRESSION: 1. No hydronephrosis. 2. Findings suggestive of chronic medical renal disease. EDIN BERMUDEZ MD SYSTEM ID: ??[id number] Narrative 07/02/2023 4:24 PM CDT US RENAL [...] renal disease. EDIN BERMUDEZ MD SYSTEM ID: [id number] Mitch Ferreira MD [facility] [place] ORDERABLES * Glucose by meter (10/16/2015 3:42 PM CDT) Glucose 88 70 - 99 mg/dL POINT OF CARE TEST, GLUCOSE 10/16/2015 3:42 PM CDT 10/16/2015 3:45 PM CDT Xavier Ahmadi MD [facility] POCT POINT OF CARE TEST, GLUCOSE from Last 3 Months or Most Recently Relevant to Health Maintenance Advance Directives For more information, please contact: [phone] * Full Code (Latest Code Status on File) Date Activated Date Inactivated Comments 10/16/2015 7:06 PM 10/17/2015 3:07 PM Care Teams Service Delivery Director Relationship Specialty Start Date End Date Oren Marshall MD PCP - General Family Practice 10/01/15
--- OUTSIDE RECORDS SUMMARY | 2023-09-11 13:45 | XMS_ITS | Clinical Summary ---
Author Organization [facility] Address [place], [place] [address] Care Team Providers Care Tape Machine Tailer Name Role Phone Ej Marshall MD Primary Care Provider [phone] Allergies Active Allergy Reactions Criticality Noted Date [...] Comments Blood Pressure 152/92 04/02/2016 2:41 PM FLORAL MANAGER Pulse 66 04/02/2016 2:41 PM FLORAL MANAGER Temperature 36.6 ??C (97.8 ??F) 04/02/2016 2:41 PM CS T Respiratory Rate 20 04/15/2015 9:41 AM FLORAL MANAGER Oxygen Saturation 99% 11/07/2015 1:33 PM CDT Inhaled Oxygen Concentration - - Weight 115.3 kg (254 lb 1.6 oz) 04/02/2016 2:41 PM FLORAL MANAGER Height 176.5 cm (5' 9.5) 11/07/2015 1:33 PM CDT Body Mass Index 36.99 11/07/2015 1:33 PM CDT Plan of Treatment Upcoming Encounters Date Type Department Care Team (Latest Contact Info) Description 09/11/2023 2:00 PM CDT Ancillary Procedure [facility] [address] [place] [address] 09/16/2023 12:02 PM CDT Hospital Encounter [facility] [address] [place], [place] [phone] Lloyd Lopez MD [facility] [address] 09/16/2023 12:02 PM CDT - 09/16/2023 2:50 PM CDT Surgery [facility] [address] [place] [address] Lloyd Lopez MD [address] [facility] [address] [place] [address] Flexible cystoscopy Scheduled Procedures Name Priority Associated Diagnoses Date/Ti me CYSTOSCOPY FLEXIBLE Elective R97.20: Elevated prostate specific antigen [PSA] C61: Malignant neoplasm of prostate 09/16/2023 12:02 PM CDT CRYOABLATION OF PROSTATE Elective R97.20: Elevated prostate specific antigen [PSA] C61: Malignant neoplasm of prostate 09/16/2023 12:02 PM CDT Health Maintenance Due Date Last Done Comments [...] age 45-75 04/13/2020 04/13/2015 COVID-19 vaccine series (2 - 2022- season) 2023 12/11/2022 Influenza for age 65+ 10/18/2023 12/17/2014 Procedures Procedure Name Priority Date/Time Associated Diagnosis Comments SCAN CORRESP-EKG RESULTS 09/02/2023 8:29 AM CDT LIPID PANEL Early AM 04/13/2015 5:55 AM FLORAL MANAGER from Last 3 Months or Most Recently Relevant to Health Maintenance Results * SCAN CORRESP-EKG RESULTS (09/02/2023 8:29 AM CDT) Narrative 09/02/2023 8:29 AM CDT Ordered by an unspecified provider. Other Clinical Staff OTHER * (ABNORMAL) Lipid Panel - Fasting (04/13/2015 5:55 AM FLORAL MANAGER) CHOLESTEROL,TOTAL 177 100 - 199 mg/dL 04/13/2015 7:16 AM FLORAL MANAGER [facility] TRIGLYCERIDES 122 <150 mg/dL 04/13/2015 7:16 AM FLORAL MANAGER [facility] HDL CHOLESTEROL 36(L) >40 mg/dL 04/13/2015 7:16 AM FLORAL MANAGER [facility] NON-HDL CHOLESTEROL 141 <145 mg/dl 04/13/2015 7:16 AM FLORAL MANAGER [facility] CHOL/HDL RATIO 4.92(H) <4.50 04/13/2015 7:16 AM FLORAL MANAGER [facility] LDL CHOLESTEROL 117 <=130 mg/dL 04/13/2015 7:16 AM FLORAL MANAGER [facility] PATIENT STATUS NOT GIVEN 04/13/2015 7:16 AM [facility] Blood specimen (specimen) BLOOD SPECIMEN / Unknown Venipuncture / Unknown 04/13/2015 5:55 AM FLORAL MANAGER 04/13/2015 6:17 AM FLORAL MANAGER Teofilo ONTIVEROS CHEMISTRY [facility] [address] [place] [address] from Last 3 Months or Most Recently Relevant to Health Maintenance Advance Directives * Full Code (Latest Code Status on File) Date Activated Date Inactivated Comments 04/12/2015 1:28 PM 04/15/2015 3:39 PM Care Teams Tape Machine Tailer Relationship Specialty Start Date End Date Ej Marshall MD PCP - General Family Practice 05/24/15
--- OUTSIDE RECORDS SUMMARY | 2023-09-11 13:45 | XMS_ITS | Encounter Summary ---
Author Organization [facility] Address [address] [place] [address] Phone Care Team Providers Care Channel Man Name Role Phone Oren Marshall MD Primary Care Provider [phone] Encounter Details Date Type Department Care Team (Late Contact Info) Description [facility]/23/2023 [facility] [address] [place] [address] [place] [address] Mitch Ferreira MD [address] [place] [phone] Social History Tobacco Use Types Packs/Day Years [...] on file documented as of this encounter Plan of Treatment Upcoming Encounters Date Type Department Care Team (Late Contact Info) Description 10/29/2023 2:30 PM CDT [facility] [address] [place] [address] Mitch Ferreira MD [address] [place] [phone] documented as of this encounter Procedures Procedure Name Priority Date/Time Associated Diagnosis Comments HEPATITIS C AB W/REFL TO HCV RNA, QN, PCR (REFL) Routine 06/23/2023 2:30 PM CDT HEPATITIS B SURFACE AG (HBSAG) W/REFL CONFIRM (REFL) Routine 06/23/2023 2:30 PM CDT VITAMIN D, 25-HYDROXY, SERUM Routine 06/23/2023 2:30 PM CDT URINALYSIS, COMPLETE Routine 06/23/2023 2:30 PM CDT RENAL FUNCTION PANEL (RFP) Routine 06/23/2023 2:30 PM CDT THYROID STIMULATING HORMONE (TSH), SERUM Routine 06/23/2023 2:30 PM CDT PROTEIN ELECTROPHORESIS, URINE, RANDOM Routine 06/23/2023 2:30 PM CDT HEPATITIS B SURFACE AB, QL, SERUM Routine 06/23/2023 2:30 PM CDT PROTEIN ELECTROPHORESIS, SERUM Routine 06/23/2023 2:30 PM CDT PTH INTACT W/O CALCIUM, SERUM Routine 06/23/2023 2:30 PM CDT documented in this encounter Results * (ABNORMAL) Protein Electrophoresis, Urine, Random (06/23/2023 [...] Gamma globulin/Protein, total 0 % [facility] ([facility]) Protein Fractions, Urine [facility] ([facility]) Comment: Agarose electrophoresis of urine reveals albumin. No abnormal protein is observed. The supplier of the testing reagents for this assay has changed. ??Detection of small monoclonal proteins may vary by test system. ??Urine immunofixation is suggested if clinically indicated and not already ordered. 06/23/2023 2:30 PM CDT 06/23/2023 2:31 PM CDT Narrative [facility] ([facility]) - 07/08/2023 2:12 PM CDT AN UPDATE OR CORRECTION HAS BEEN MADE TO NAME Resulting Agency Comment Performing Organization Information: ?Site ID: [id number] ?Name: [facility] ?Address: [address] [place], [place] [address]ner [place] [address] ?Director: Tristan Batres MD Mitch Ferreira MD LAB URINE ORDERABLES [facility] ([facility]) * Vitamin D, 25-Hydroxy, Serum (06/23/2023 2:30 PM CDT) Calcidiol, Serum/Plasma 72 30 - 100 ng/mL [facility]ARR[facility] ([facility]) Comment: Vitamin D Status ? 25-OH Vitamin D: Deficiency: ?<20 ng/mL Insufficiency: ? 20 - 29 ng/mL Optimal: ? > or = 30 ng/mL For 25-OH Vitamin D testing on patients on D2-supplementation and patients for whom quantitation of D2 and D3 fractions is required, the QuestAssureD(TM) 25-OH VIT D, (D2,D3), LC/MS/MS is recommended: order code 25933 (patients >2yrs). See Note 1 Note 1 For additional information, please refer to http://education.LifeBook.VCV/faq/HCR123 (This link is being provided for informational/ educational purposes only.) 06/23/2023 2:30 PM CDT 06/23/2023 2:31 PM CDT Narrative [facility] PONCER[facility] ([facility]ryan) - 07/08/2023 2:12 PM CDT AN UPDATE OR CORRECTION HAS BEEN MADE TO NAME Resulting Agency Comment Performing Organization Information: ?Site ID: [id number] ?Name: [facility] ?Address: [address] [place], [place] [address] [address] ?Director: Gurdeep Bob Mitch Ferreira MD LAB BLOOD ORDERABLES [facility] (TONYABryan) * (ABNORMAL) PTH Intact w/o Calcium, Serum (06/23/2023 2:30 PM CDT) PTH, Intact, Serum/Plasma 118(H) 16 - 77 pg/mL [facility] (SYLVIE) Comment: Interpretive Guide ?Intact PTH ? Calcium [...] Comment Performing Organization Information: ?Site ID: ?Name: [facility] ?Address: [address] [place] [phone] ?Director: Gurdeep Bob Mitch Ferreira MD LAB BLOOD ORDERABLES Performing Organization Address [facility] de Phone Number [facility] ([facility]) * Thyroid Stimulating Hormone (TSH), Serum (06/23/2023 2:30 PM CDT) TSH, Serum/Plasma 0.79 0.40 - 4.50 mIU/L [facility] ([facility]) 06/23/2023 2:30 PM CDT 06/23/2023 2:31 PM CDT Narrative [facility] ([facility]) - 07/08/2023 2:12 PM CDT AN UPDATE OR CORRECTION HAS BEEN MADE TO NAME Resulting Agency Comment Performing Organization Information: ?Site ID: ?Name: [facility] ?Address: [address] [place] [address] ?Director: Gurdeep Bob Mitch Ferreira MD LAB BLOOD ORDERABLES Performing Organization Address [facility] de Phone Number [facility] ([facility]) * Hepatitis B Surface Ag (HBsAg) w/Refl Confirm (Refl) (06/23/2023 2:30 PM CDT) Hepatitis B virus surface Ag, Serum/Plasma NON-REACT PADMA NON-REACT PADMA [facility] ([facility]) Comment: Our records indicate that you have ordered a client custom reflex order code. Only the initial test was performed because we do not have a client custom reflex testing authorization request form on file for you. Please contact a client account representative if you would like additional testing done on this patient or contact your women's apparel salesperson to obtain a client custom reflex testing authorization request form. For additional information, please refer to http://Empiribox.NexDefense/faq/LPA919 (This link is being provided for informational/ educational purposes only.) 06/23/2023 2:30 PM CDT 06/23/2023 2:31 PM CDT Narrative [facility] ([facility]) - 07/08/2023 2:12 PM CDT AN UPDATE OR CORRECTION HAS BEEN MADE TO NAME Resulting Agency Comment Performing Organization Information: ?Site ID: ?Name: [facility] ?Address: [address] [place] [phone] ?Director: Gurdeep Bob Mitch Ferreira MD LAB BLOOD ORDERABLES [facility] Velásquez BRITTANEY ([facility]) * Hep C AB W/Reflex to HCV RNA, QN, PCR (REFL) (06/23/2023 2:30 PM CDT) Hepatitis C virus Ab, Serum/Plasma NON-REACT PADMA NON-REACT PADMA [facility] ([facility]) Comment: HCV antibody was non-reactive. There is no laboratory evidence of HCV infection. In most cases, no further action is required. However, if recent HCV exposure is suspected, a test for HCV RNA (test code 54292) is suggested. For additional information please refer to http://Empiribox.NexDefense/faq/NGL82p6 (This link is being provided for informational/ educational purposes only.) Our records indicate that you have ordered a client custom reflex order code. Only the initial test was performed because we do not have a client custom reflex testing authorization request form on file for you. Please contact a client account representative if you would like additional testing done on this patient or contact your women's apparel salesperson to obtain a client custom reflex testing authorization request form. 06/23/2023 2:30 PM CDT 06/23/2023 2:31 PM CDT Narrative [facility] ([facility]) - 07/08/2023 2:12 PM CDT AN UPDATE OR CORRECTION HAS BEEN MADE TO NAME Resulting Agency Comment Performing Organization Information: ?Site ID: [id number] ?Name: [facility] ?Address: [address] [place] [phone] ?Director: Gurdeep Bob Mitch Ferreira MD LAB BLOOD ORDERABLES Performing Organization Address [facility] de Phone Number [facility] ([facility]) * Hepatitis B Surface AB, QL, [...] ID: CB ?Name: [facility] ?Address: [address] [place] [phone] ?Director: Gurdeep Bob Authorizing Provider Result Komal Ferreira MD LAB BLOOD ORDERABLES Performing Organization Address [facility] de Phone Number [facility] ([facility]) * (ABNORMAL) Urinalysis, [...] Performing Organization Information: ?Site ID: [id number] ?[facility] ?Address: [address] [place] [phone] ?Director: Gurdeep Bob Mitch Ferreira MD LAB [...] Comment Performing Organization Information: ?Site ID: ?Name: [facility] ?Address: [address] [place] [phone] ?Director: Gurdeep Bob Mitch Ferreira MD LAB BLOOD ORDERABLES [facility] ([facility]) * Protein Electrophoresis, Serum (06/23/2023 2:30 PM CDT) Protein, Serum/Plasma 7.0 6.1 - 8.1 g/dL [...] Agency Comment Performing Organization Information: ?Site ID: CT ?Name: [facility] ?Address: [address] [place], [place] [address] [address] ?Director: Tristan Batres MD Mitch Ferreira MD LAB BLOOD ORDERABLES [facility] ([facility]) documented in this encounter Visit Diagnoses Not on filedocumented in this encounter Care Teams Channel Man Relationship Specialty Start Date End Date Oren Marshall MD [address] [place] [phone] PCP - General 06/16/23 documented as of this encounter
--- OUTSIDE RECORDS SUMMARY | 2023-09-11 13:45 | XMS_ITS | Encounter Summary ---
Author Organization [facility] Address [address] [place] [address] Phone Care Team Providers Care Registered Art Therapist Name Role Phone Oren Marshall MD Primary Care Provider [phone] Encounter Details Date Type Department Care Team (Late st Contact Info) Description 06/23/2023 2:30 PM CDT Office Visit [facility] [address] [facility] [address] [place] [address] Mitch Ferreira MD [address] [facility] [address] [place], [place] [address] Chronic kidney disease stage 4 (CMS-HCC) (Primary Dx); Hypertensive renal disease Social History Tobacco Use Types Packs/Day Years [...] Sign Reading Time Taken Comments Blood Pressure 123/79 06/23/2023 2:32 PM CDT Pulse 83 06/23/2023 2:32 PM CDT Temperature 36.6 ??C (97.8 ??F) 06/23/2023 2:32 PM CD T Respiratory Rate - - Oxygen Saturation - - Inhaled Oxygen Concentration - - Weight 102 kg (224 lb) 06/23/2023 2:32 PM CDT Height 177.8 cm (5' 10) 06/23/2023 2:32 PM CDT Body Mass Index 32.14 06/23/2023 2:32 PM CDT documented in this encounter Progress Notes * Mitch Ferreira MD - 06/23/2023 2:30 PM CDT Reason For Consultation: CKD IV Referring Provider: Ej Marshall MD HPI: 77 y.o gentleman with CKD IV and hypertension, who is here to establish care. He is accompanied by his , Santa. He has had CKD at least since 2015. He says he could not get the dye when he had his prostate issue in 2016. He had prostate cancer s/p cryotherapy in 2016. From care everywhere, his creatinine was 2 mg/dl in July of 2015. His latest creatinine was 2.7 mg/dl for an eGFR of 24 ml/min. He was taking Motrin 800 mg tid for at least 10 years. He has been taken less in the last few years. Now he is taking 2 tabs two times a week if needed for lower back pain. He says he was diagnosed with hypertension in 1981. Currently, he is taking Norvasc 5 mg at bedtime, lisinopril 20 mg and Toprol XL 100 mg in the morning. His blood pressure is well-controlled. Overall, he says his health has been relatively the same in the last few years. He has chronic fatigue and low energy level He sleeps a lot. He has chronic PIÑA and some orthopnea. He does not feel hungry and he does not eat properly. He has night drenching sweat for the last couple years. No unintentional weight loss in the last couple years. He says his prostate cancer has been in remission. He is seeing his urologist in July. He drips at time when he urinates. He feels he empties his bladder adequately. No dysuria or hematuria. 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 He says he was exposed to agent orange in [place] and the burning pits in [place]. I reviewed labs and notes from Dr. Marshall. Medical History: # CKD IV -creatinine was 2 mg/dl in 2015 # Hypertension since 1981 # Hyperlipidemia # COPD # Depression/PTSD # Prostate cancer s/p cryo ablation 2016 -remission # Mild occipital 2015 wo residual deficit Surgical History: # R ankle surgery Family History: # Father with colon cancer # Daughter with MS # No kidney disease in the family Social History: . One daughter. Quit chew/cigar 2013. Does not drink alcohol. [employer] 25 years. No Known Allergies Current Outpatient Medications Medication Sig Dispense Refill amLODIPine (NORVASC) 5 MG tablet Take 5 mg by mouth 1 (one) time each day aspirin (ST KRISTI) 81 MG EC tablet Take 1 tablet by mouth 1 (one) time each day atorvastatin (LIPITOR) 20 MG tablet Take 20 mg by mouth 1 (one) time each day busPIRone (BUSPAR) 5 MG tablet Take 5 mg by mouth in the morning and 5 mg in the evening. cholecalciferol, vitamin D3, (D-5000) 5,000 Units tablet tablet Take 5,000 Units by mouth 1 (one) time each day diphenhydrAMINE-acetaminophen (TYLENOL PM) 25-500 MG per tablet Take 2 tablets by mouth at night ifneeded for sleep ipratropium-albuterol (Combivent Respimat) 20-100 MCG/ACT inhaler Inhale 1 puff in the morning and 1 puff at noon and 1 puff in the evening and 1 puff before bedtime. lisinopril (PRINIVIL) 20 MG tablet Take 20 mg by mouth 1 (one) time each day metoprolol succinate XL (TOPROL-XL) 100 MG 24 hr tablet Take 100 mg by mouth 1 (one) time each day omeprazole (PriLOSEC) [address] capsule Take 20 mg by mouth 1 (one) time each day sertraline (ZOLOFT) 100 MG tablet Take 150 mg by mouth 1 (one) time each day tiZANidine (ZANAFLEX) 4 MG tablet Take 2-4 mg by mouth every 8 (eight) hours if needed for muscle spasms No current facility-administered medications for this visit. Objective BP 123/79 (BP Location: Left arm, Patient Position: Sitting, BP Cuff Size: Adult) Pulse 83 Temp97.8 ??F (36.6 ??C) (Temporal) Ht 5' 10 (1.778 m) Wt 224 lb (102 kg) BMI 32.14 kg/m?? BSA 2.24 m?? Physical Exam GEN: NAD HEENT: EOMI. PERR. No neck mass CV: RRR. No MGR. No carotid bruit. PULM: BS diminish. CTAB. No wheezes. ABD: soft, NT. ND EXT: No edema. Normal gait. No swelling joints. NEURO/PSYCH: Appropriate. Labs: 06/12/2023 Na 140 K 5.1 Cl 106 Bicarb 28 BUN 26 Scr 2.7 eGFR 24 Ca 9.5 LDL 82 HDL 50 Chold 151 WBC 9.7 Hgb 14.8 PLT 198 06/06/2022 Na 140 K 4.8 Cl 108 Bicarb 24 BUN 31 Scr 2.4 eGFR 28 Ca 9.1 08/2021 BUN 21/2.4 10/2020 Bun 27 Scr 2.3 10/2019 BUN 21 Scr 2.1 Assessment: 77 y.o gentleman with CKD IV presumed due to HTN nephrosclerosis and NSAIDs. # CKD IV: He had a creatinine of 2 mg/dl in 2015 and currently 2.7 mg/dl for an eGFR of 24 ml/min. -due to HTN and NSAIDs -I suspect his chronic fatigue symptome is not due to CKD # Hypertension [id number]: Blood pressure is well-controlled. -Norvasc 5 mg at bedtime -lisinopril 20 mg in aM -Toprol XL 100 mg in AM # FEN: Euvolemic. K runs on the upper limit of normal. # Anemia: Hgb is on the high side, 14.8. # History of prostate cancer s/p cryo-ablation in 2016: -in remission # Hyperlipidemia: Cholesterol are at target. -atorvastatin Plan: # Check renal panel, UA with micro, UPCR, IPTH, 25-vit D3, TSH # Check Hepatitis B, C # Avoid NSAIDs and IV dye # Keep well-hydrated # See PA for CKD IV education # Continue lisinopril 20 mg and Toprol 100 mg in the morning and Norvasc 5 mg qhs # Renal ultrasound to be done at [facility] # See me 3 months after CKD education with PA documented in this encounter Plan of Treatment Upcoming Encounters Date Type Department Care Team (Late st Contact Info) Description 10/29/2023 2:30 PM CDT Office Visit [facility] [address] [facility] [address] [place] [address] Mitch Ferreira MD [address] [facility] [address] [place] [address] documented as of this encounter Visit Diagnoses Diagnosis Chronic kidney disease stage 4 (CMS-HCC)- Primary Hypertensive renal disease documented in this encounter Care Teams Registered Art Therapist Relationship Specialty Start Date End Date Oren Marshall MD [address] [place] [address] PCP - General 06/16/23 documented as of this encounter
--- OUTSIDE RECORDS SUMMARY | 2023-09-11 13:45 | XMS_ITS | Encounter Summary ---
Author Organization [facility] Address [address] [place], [place] [address]. [place] [address] Care Team Providers Care Railroad Signal Technician Name Role Phone Oren Marshall MD Primary Care Provider Encounter Details Date Type Department Care Team (Latest Contact Info) Description 07/02/2023 Travel Social History Tobacco Use Types Packs/Day Years [...] on file documented as of this encounter Visit Diagnoses Not on filedocumented in this encounter Care Teams Railroad Signal Technician Relationship Specialty Start Date End Date Oren Marshall MD PCP - General Family Practice 10/01/15 documented as of this encounter
--- OUTSIDE RECORDS SUMMARY | 2023-09-11 13:45 | XMS_ITS | Referral Summary ---
Author Organization [facility] Address [address] [place] [address]. [place] [address] Care Team Providers Care Chemical Sales Representative Name Role Phone Oren Marshall MD Primary Care Provider Encounters Date Type Department Care Team Description 07/02/2023 Travel 07/02/2023 3:12 PM CDT - 07/02/2023 11:59 PM CDT Hospital Encounter [facility] [address] [place] [id number] Mitch Ferreira MD Chronic kidney disease, stage IV (severe) (H) Discharge Disposition: Home or Self Care from Last 3 Months Allergies Active Allergy Reactions Criticality Noted Date [...] renal disease. EDIN BERMUDEZ MD SYSTEM ID: [id number] Narrative 07/02/2023 4:24 PM CDT US RENAL [...] renal disease. EDIN BERMUDEZ MD SYSTEM ID: [id number] Mitch Ferreira MD IMG US ORDERABLES * Glucose by meter (10/16/2015 3:42 PM CDT) Glucose 88 70 - 99 mg/dL POINT OF CARE TEST, GLUCOSE 10/16/2015 3:42 PM CDT 10/16/2015 3:45 PM CDT Xavier Ahmadi MD LAB - [facility] POCT POINT OF CARE TEST, GLUCOSE from Last 3 Months or Most Recently Relevant to Health Maintenance Advance Directives For more information, please contact: [phone] * Full Code (Latest Code Status on File) Date Activated Date Inactivated Comments 10/16/2015 7:06 PM 10/17/2015 3:07 PM Care Teams Chemical Sales Representative Relationship Specialty Start Date End Date Oren Marshall MD PCP - General Family Practice 10/01/15
--- OUTSIDE RECORDS SUMMARY | 2023-09-11 13:45 | XMS_ITS | Encounter Summary ---
Author Organization [facility] Address [address] [place] [address] Phone Care Team Providers Care Continuous Improvement Black Belt Name Role Phone Oren Marshall MD Primary Care Provider [phone] Encounter Details Date Type Department Care Team (Late st Contact Info) Description 06/23/2023 Telephone [employer] [address] [facility] [address] [place], [place] [id number] Mitch Ferreira MD [address] [facility] [address] [place] [address] Social History Tobacco Use Types Packs/Day Years [...] Telephone Encounter - Neida Koch RN - 06/24/2023 4:20 PM CDT Order faxed and then to [facility] for tracking. * Telephone Encounter - Mitch Ferreira MD - 06/23/2023 4:18 PM CDT Fax order for renal ultrasound to be done at [facility] for CKD IV Thanks documented in this encounter Plan of Treatment Upcoming Encounters Date Type Department Care Team (Late st Contact Info) Description 10/29/2023 2:30 PM CDT Office Visit [facility] [address] [facility] [address] [place] [address] Mitch Ferreira MD [facility] [facility] [address] [place] [address] documented as of this encounter Visit Diagnoses Not on filedocumented in this encounter Care Teams Continuous Improvement Black Belt Relationship Specialty Start Date End Date Oren Marshall MD [address] [place] [address] PCP - General 06/16/23 documented as of this encounter
== END 2023-09-11 13:41 | disposition home or self-care (01) ==
LOC: RAD 13:41
PROVIDERS: PCP Family Medicine; Visit Provider Family Medicine
DX: I48.91 Unspecified atrial fibrillation (principal); I35.1 Nonrheumatic aortic (valve) insufficiency; I07.1 Rheumatic tricuspid insufficiency
CPT/HCPCS: 93306

== ENCOUNTER 2023-12-18 12:37 | Outpatient (REF) | payer MEDICARE, OTHER, SELFPAY ==
[2023-12-20 23:49] LABS: Prostate Specific Antigen Free 0.7 ng/mL; Prostate Specific Antigen%Free 19 %; Prostate Specific AntigenTotal 3.6 ng/mL (0.0-4.0)
== END 2023-12-18 12:38 | disposition home or self-care (01) ==
LOC: NPINS 12:37
PROVIDERS: PCP Family Medicine; Visit Provider Urology
DX: R97.20 Elevated prostate specific antigen [PSA] (principal)
CPT/HCPCS: 84153; 84154

== ENCOUNTER 2024-05-16 10:43 | Outpatient (CLI) | payer MEDICARE, OTHER, SELFPAY ==
[2024-05-16 13:09] LABS: Albumin* 4.3 g/dL (3.3-5.0); Chloride* 104 mmol/L (96-114); Sodium* 138 mmol/L (135-149)
[2024-05-16 13:12] LABS: Anion Gap 12 mEq/L (7-15); Blood Urea Nitrogen* 33 mg/dL (7-30); Carbon Dioxide* 22 mmol/L (20-32); Creatinine* 2.4 mg/dL (0.5-1.5); Estimated Glomerular Filt Rate 27 ml/min; Phosphorus* 3.8 mg/dL (2.5-4.5)
[2024-05-16 13:13] LABS: Calcium* 9.3 mg/dL (8.4-10.6); Glucose* 88 mg/dL (60-115)
[2024-05-16 13:21] LABS: Basophils Absolute Auto 0.04 K/uL (0.00-0.30); Basophils Percent Auto 0.5 % (0.0-3.0); Eosinophils Absolute Auto 0.47 K/uL (0.00-0.50); Eosinophils Percent Auto 5.5 % (0.0-7.0); Hematocrit* 45.7 % (37.0-53.0); Hemoglobin* 15.4 gm/dL (13.5-17.5); Immature Granulocytes Abs Auto 0.01 K/uL (0.00-0.30); Immature Granulocytes Pct Auto 0.1 %; Lymphocytes Percent Auto 9.2 % (20-44); Mean Corpuscular HGB Conc 34 gm/dL (32-36); Mean Corpuscular Hemoglobin 32 pg (26-34); Mean Corpuscular Volume 95 fL (80-100); Monocytes Percent Auto 7.4 % (0.0-11.0); Neutrophils Percent Auto 77.3 % (42.0-72.0); Platelet Count* 190 K/uL (140-440); RDW Coefficient of Variation % 12.6 % (11.5-15.5); Red Blood Count* 4.79 m/uL (4.30-5.90); White Blood Count* 8.51 K/uL (4.50-11.00)
[2024-05-16 13:22] LABS: Total Protein Urine 28 mg/dL
[2024-05-16 13:22] LABS: Slide Review Reflex No
[2024-05-16 13:23] LABS: Creatinine Urine 272.9 mg/dL
[2024-05-16 13:52] LABS: Appearance Urine Slightly Cloudy (Clear); Bilirubin Urine 1+ (Negative); Blood Urine Negative (Negative); Color Urine Yellow (Yellow); Glucose Urine Negative (Negative); Ketones Urine Trace (Negative); Leukocyte Esterase Urine Negative (Negative); Nitrite Urine Negative (Negative); Protein Urine 1+ (Negative); pH Urine 5.5 (5.0-8.5)
[2024-05-16 14:27] LABS: RBC Urine 0-2 (0-2); Squamous Epithelial Cell Urine Few (None-Few); WBC Urine 0-2 (0-5)
== END 2024-05-16 10:44 | disposition home or self-care (01) ==
LOC: NPINS 10:45
PROVIDERS: PCP Family Medicine; Visit Provider Internal Medicine Nephrology
DX: I12.9 Hypertensive chronic kidney disease with stage 1 through stage 4 chronic kidney disease, or unspecified chronic kidney disease (principal); N18.4 Chronic kidney disease, stage 4 (severe); C61 Malignant neoplasm of prostate
CPT/HCPCS: 80048; 81001; 81003; 82040; 82570; 84100; 84156; 85025

== ENCOUNTER 2024-05-16 10:45 | Outpatient (CLI) | payer MEDICARE, OTHER, SELFPAY | END 2024-05-16 10:46 | disposition home or self-care (01) | LOC: NPINS 10:46 | PROVIDERS: PCP Family Medicine; Visit Provider Urology | DX: C61 Malignant neoplasm of prostate (principal) | CPT/HCPCS: 84153 ==

== ENCOUNTER 2024-10-22 14:49 | Emergency (ER) | payer MEDICARE, OTHER, SELFPAY ==
--- OUTSIDE RECORDS SUMMARY | 2012-09-30 04:22 | XMS_ITS | Continuity of Care Document ---
Author Organization [facility] Address [address] [address] [place] [address] Phone Care Team Providers Care Camp Nurse Name Role Phone Gilbert Sullivan MD Unavaila ble Advance Directives Directive Yes / No Effective Date File Name No Information Encounters Encounter Description Practice Location Reason(s) For Visit Diagnoses Date Provider Providers Copied on Encounter [facility] [place], [address] [address], [place], [place], [id number], [place] tel:[phone] [facility] No Information 3 Laurie Hunt. [address] [facility], [facility] [address], [place], [place], [id number], [place]. tel:[phone] Family History Family Member Type Diagnosis Age At Onset No Information Payers Payer name Insurance type Covered green party ID Authoriza tion(s) No Information Social History Type Description Quantity Date Captured Comments Sex Male Smoking Status No Information Chief Complaint And Reason For Visit No Information Reason For Referral Reason For Referral No Information History Of Present Illness Encounter Date Complaint History Of Prese nt Illness No Information Functional Status Date Functional Assessmen t No Information Instructions Date Instruction Additional Infor mation No Information Assessments Type Assessment Date No Information Patient Care Teams Name Effective Dates (start - stop) Status Members No Information
--- OUTSIDE RECORDS SUMMARY | 2012-09-30 04:22 | XMS_ITS | Continuity of Care Document ---
Author Organization [facility] Address [address] [address] [place] [address] Phone Care Team Providers Care Floor Installation Mechanic Name Role Phone Gilbert Sullivan MD Unavaila ble Advance Directives Directive Yes / No Effective Date File Name No Information Encounters Encounter Description Practice Location Reason(s) For Visit Diagnoses Date Provider Providers Copied on Encounter [facility] [place], [address] [address], [place], [place], [id number], [place] tel:[phone] [facility] No Information 3 Laurie Hunt. [address] [facility], [facility] [address], [place], [place], [id number], [place]. tel:[phone] Family History Family Member Type Diagnosis Age At Onset No Information Payers Payer name Insurance type Covered libertarian ID Authoriza tion(s) No Information Social History [...]
--- OUTSIDE RECORDS SUMMARY | 2024-10-22 14:52 | XMS_ITS | Clinical Summary ---
Author Organization [facility] Address [address] [place] [address] Care Team Providers Care Capsule Machine Operator Name Role Phone Ej Marshall MD Primary Care Provider [phone] Allergies Active Allergy Reactions Criticality Noted Date Comments Isoniazid Rash 06/06/2015 Medications lisinopril (PRINIVIL; ZESTRIL) 20 mg tablet Take 20 mg by mouth once daily. Active Cetirizine 10 mg capIndications: seasonal allergic rhinitis Take 10 mg by mouth once daily if needed. Indications: SEASONAL ALLERGIC RHINITIS Active metoprolol succinate (TOPROL XL) 100 mg Sustained-Relea se tablet Take 100 mg by mouth once daily. Active escitalopram oxalate (LEXAPRO) 20 mg tablet Take 20 mg by mouth every morning. Active atorvastatin (LIPITOR) 20 mg tabletIndicatio ns:Cerebrovascu lar accident (CVA), unspecified mechanism (HC) Take 1 tablet by mouth at bedtime. 30 tablet 0 6 Active aspirin (ECOTRIN) 81 mg enteric coated tabletIndicatio ns:Cerebrovascu lar accident (CVA), unspecified mechanism (HC) Take 1 tablet by mouth once daily with a meal. 0 6 Active citalopram (CELEXA) 20 mg tablet Take 1 tablet by mouth once daily. 6 Active Cholecalciferol , Vitamin D3, (VITAMIN D-3) 5,000 unit tab Take by mouth once daily. 0 6 Active busPIRone (BUSPAR) 5 mg tablet Take 5 mg by mouth two times daily. Active diphenhydrAMINE -acetaminophen 25-500 mg (TYLENOL PM) 25-500 mg tablet Take 2 Tablets by mouth at bedtime if needed. Max acetaminophen dose: 4000mg in 24 hrs. Active ipratropium-alb uteroL (COMBIVENT RESPIMAT) (20-100 mcg each actuation) mist inhaler Inhale 1 Puff by mouth four times daily. Active omeprazole 20 mg tablet Take 20 mg by mouth once daily. Active sertraline 150 mg cap Take 1 Capsule by mouth. Active tizanidine HCl (TIZANIDINE ORAL) Take by mouth. Activ e oxyCODONE-aceta minophen (PERCOCET) 5-325 mg per tabletIndicatio ns:Prostate cancer (HC) Take 1 Tablet by mouth every 6 hours if needed for Pain. Max acetaminophen dose: 4000mg in 24 hrs. 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 Gender Identity Not on file Sexual Orientation Not on file Obstetrics History Last Filed Vital Signs Vital Sign Reading Time Taken Comments Blood Pressure 166/83 09/16/2023 6:30 PM CDT Pulse 83 09/16/2023 6:30 PM CDT Temperature 36.1 C (97 F) 09/16/2023 4:26 PM CDT Respiratory Rate 16 09/16/2023 6:30 PM CDT Oxygen Saturation 100% 09/16/2023 6:30 PM CDT Inhaled Oxygen Concentration - - Weight 96.6 kg (213 lb) 09/16/2023 11:44 AM CDT Height 176.5 cm (5' 9.5) 09/16/2023 11:44 AM CD T Body Mass Index 31 09/16/2023 11:44 AM CDT Plan of Treatment Health Maintenance Due Date Last Done Comments Tetanus booster 11/24/1958 Depression screening for age 12+ 1959 Hepatitis C screening for age 18-79 11/24/1965 Pneumococcal series for age 50+ (1 of 2 - PCV) 11/24/1966 Zoster (shingles) series for age 50+ (1 of 2) 11/24/1997 BMI (ht and wt on same day) for age 18+ 11/06/2016 11/07/2015, 07/25/2015, 06/06/2015, Additional history exists RSV vaccine for adults or (1 - 1-dose 75+ series) 11/24/2022 COVID-19 vaccine series (3 - 2024- season) 2024 11/26/2023, 11/26/2023, 12/11/2022 Influenza Vaccine (#1) 2024 12/17/2014 Hepatitis B series for 19+ Aged Out N o longer eligible based on patient's age to complete this topic Insurance [employer] MEDICARE PART A HB ONLY MEDICARE PART B HB ONLY MEDICARE PB ONLY Advance Directives * Full Code (Latest Code Status on File) Date Activated Date Inactivated Comments 09/16/2023 11:20 AM 09/16/2023 9:37 PM Question Answer Comments Code Status Discussion: Not Discussed * Full Code Date Activated Date Inactivated Comments 04/12/2015 1:28 PM 04/15/2015 3:39 PM Care Teams Capsule Machine Operator Relationship Specialty Start Date End Date Ej Marshall MD PCP - General Family Practice 05/24/15
--- OUTSIDE RECORDS SUMMARY | 2024-10-22 14:52 | XMS_ITS | Encounter Summary ---
Author Organization [facility] Address [address] [address] Phone Care Team Providers Care Donor Services Coordinator Name Role Phone Oren Marshall MD Primary Care Provider [phone] Encounter Details Date Type Department Care Team (Late st Contact Info) Description 08/10/2024 Abstract HISTORICAL CONVERSION [facility] [address] [place] [address] ProviderAlexei MD [address] [place] [address] Social History Tobacco Use Types Packs/Day Years Used Date Smoking Tobacco: Former Cigarettes Q uit: 2015 Passive Smoke Exposure: Past Smokeless Tobacco: Never Alcohol Use Standard Drinks/Week Comments Yes 0 (1 standard drink = 0.6 oz pur e alcohol) Sex and Gender Information Value Date Recorded Sex Assigned at Not on file Legal Sex Male 1:28 PM MDT Gender Identity Not on file Sexual Orientation Not on file documented as of this encounter Plan of Treatment Not on file documented as of this encounter Visit Diagnoses Not on filedocumented in this encounter Care Teams Donor Services Coordinator Relationship Specialty Start Date End Date Oren Marshall MD [address] [place] [address] PCP - General 06/16/23 documented as of this encounter
--- OUTSIDE RECORDS SUMMARY | 2024-10-22 14:52 | XMS_ITS | Clinical Summary ---
Author Organization [facility] Address [address] [place] [address] [place] [address] Care Team Providers Care Claims Administrator Name Role Phone Oren Marshall MD Primary Care Provider Allergies Active Allergy Reactions Criticality Noted Date Comments Isoniazid 10/16/2015 Medications TAMSULOSIN HCL PO Take 0.4 mg by mouth daily Active LISINOPRIL PO Take 20 mg by mouth daily Active METOPROLOL TARTRATE PO Take 100 mg by mouth daily Active CITALOPRAM HYDROBROMIDE PO Take 20 mg by mouth daily Active ATORVASTATIN CALCIUM PO Take 20 mg by mouth daily Active Ipratropium-Albut rafa (COMBIVENT RESPIMAT) 20-100 MCG/ACT inhaler Inhale 1 puff into the lungs 4 times daily Active VITAMIN D, CHOLECALCIFEROL, PO Take 5,000 Units by mouth daily Active AMLODIPINE BESYLATE PO Take 2.5 mg by mouth daily Active Acetaminophen (TYLENOL PO) Take 1,000 mg by mouth 2 times daily Active HYDROcodone-aceta minophen (NORCO) 5-325 MG per tabletIndications :Prostate CA (H) Take 1-2 tablets by mouth every 4 hours as needed for moderate to severe pain (Moderate to Severe Pain) 30 tablet 0 6 Active sulfamethoxazole- trimethoprim (BACTRIM DS,SEPTRA DS) 800-160 MG per tabletIndications :Prostate CA (H) Take 1 tablet by mouth 2 times daily 14 tablet 0 6 Active oxybutynin (DITROPAN) 5 MG tabletIndications :Prostate CA (H) Take 1 tablet (5 mg) by mouth every 8 hours as needed for bladder spasms 30 tablet 1 6 Active Active Problems Problem Noted Date Diagnosed [...] at Not on file Legal 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 Gender Identity Not on file Sexual Orientation Not on file Last Filed Vital Signs Vital Sign Reading Time Taken Comments Blood Pressure 114/65 10/17/2015 8:00 AM CDT Pulse - - Temperature 37.7 C (99.9 F) 10/17/2015 8:00 AM CDT Respiratory Rate 23 10/17/2015 11:0 0 AM [...] 1945 ANNUAL REVIEW OF HM ORDERS 1945 LIPID 1945 HEPATITIS C SCREENING 11/24/1965 LUNG CANCER SCREENING 11/24/1997 FALL RISK ASSESSMENT 11/24/2012 MEDICARE ANNUAL WELLNESS VISIT 11/24/2012 DIABETES SCREENING 10/15/2018 10/16/2015 RSV VACCINE (1 - 1-dose 75+ series) 11/24/2022 PHQ-2 (once per calendar year) 2024 COVID-19 VACCINE (2024- season) 2024 11/26/2023, 12/11/2022, 12/03/2021, Additional history exists INFLUENZA VACCINE (#1) 2024 , 12/11/2022, 11/15/2021, Additional history exists DTAP/TDAP/TD VACCINE (3 - Td or Tdap) 02/24/2027 02/24/2017, 08/09/2004, 08/09/2004 PNEUMOCOCCAL VACCINE 50+ YEARS Completed 11/23/2018, 02/24/2017 ZOSTER VACCINE Completed 11/06/2021, 09/04/2021 HPV VACCINE (No Doses Required) Completed MENINGITIS VACCINE Aged Out No longer eligible based on patient's age to [...] PM CDT Xavier Ahmadi MD LAB - [facility] POCT Final Result POINT OF CARE TEST, GLUCOSE from Last 3 Months or Most Recently Relevant to Health [place] [id number] / [address] [place] [address] MEDICARE / Advance Directives For more information, please contact: [phone] * Full Code (Latest Code Status on File) Date Activated Date Inactivated Comments 10/16/2015 7:06 PM 10/17/2015 3:07 PM Care Teams Claims Administrator Relationship Specialty Start Date End Date Oren Marshall MD PCP - General Family Practice 10/01/15
--- OUTSIDE RECORDS SUMMARY | 2024-10-22 14:52 | XMS_ITS ---
Author Organization [facility] Address [address] [place] [address] Care Team Providers Care Seed Corn Production Manager Name Role Phone Unavailable Unavailable Unavailable Allergies, Adverse Reactions, Alerts This patient has no known allergies or adverse reactions. Problems This patient has no known problems.
--- OUTSIDE RECORDS SUMMARY | 2024-10-22 14:52 | XMS_ITS | Clinical Summary ---
Author Organization [facility] Address [address] [place] [address] Phone Care Team Providers Care Whiskey Proof Reader Name Role Phone Oren Marshall MD Primary Care Provider [phone] Allergies No known active allergies Medications amLODIPine (NORVASC) 5 MG tablet Take 5 [...] 1 (one) time each day 08/12/2021 Active cholecalciferol , vitamin D3, (D-5000) 5,000 Units tablet tablet Take 5,000 Units by mouth 1 (one) time each day 06/06/2015 Active metoprolol succinate XL (TOPROL-XL) 100 MG 24 hr tablet Take 100 mg by mouth 1 (one) time each day 10/06/2022 Active ipratropium-alb uterol (Combivent Respimat) 20-100 MCG/ACT inhaler Inhale 1 puff in the morning and 1 puff at noon and 1 puff in the evening and 1 puff before bedtime. 10/06/2022 Active diphenhydrAMINE -acetaminophen (TYLENOL PM) 25-500 MG per tablet Take 2 tablets by mouth at night if needed for sleep Active omeprazole (PriLOSEC) [address] capsule Take 20 mg by mouth 1 (one) time each day Active trospium (SANCTURA) 20 MG tablet Take 20 mg by mouth at bed time Active Active Problems Problem Noted Date Diagnosed Date Chronic kidney disease stage 4 12/23/2023 Hypertensive renal disease 12/23/2023 Encounters Date Type Department Care Team Description 08/10/2024 Abstract HISTORICAL CONVERSION [facility] [address] [place] [address] Provider, MD Alexei from Last 3 Months Immunizations Immunization Administration Dates Next Due Fluzone High-Dose 12/11/2022 Hepatitis B 06/24/2024 Influenza Split High Dose Pr eservative Free IM 11/26/2023,11/23/2018,11/26/2017 Influenza TIV (IM) 12/17/2014,11/16/2014 Influenza, Injectable, Quadrivalent 11/15/2021 Influenza, Unspecified 11/30/2020,2008,12/21/2007,12/01 Pfizer Sars-cov-2 Vaccination 11/26/2023 ,12/11/2022,12/03/2021,08/12,01/08/2021,04/23/2020,04/05/2020 ,04/02/2020,03/15/2020 Pneumococcal Conjugate 13-Valent 02/24/2017 Pneumococcal Polysaccharide 11/23/2018 [...] Sign Reading Time Taken Comments Blood Pressure 164/103 12/22/2023 10:11 AM FIELD SALES AGENT Pulse 79 12/22/2023 10:11 AM FIELD SALES AGENT Temperature 37 C (98.6 F) 12/22/2023 10:11 AM FIELD SALES AGENT Respiratory Rate - - Oxygen Saturation - - Inhaled Oxygen Concentration - - Weight 96.6 kg (213 lb) 12/22/2023 10:11 AM FIELD SALES AGENT Height 177.8 cm (5' 10) 06/23/2023 2:32 PM CDT Body Mass Index 30.56 06/23/2023 2:32 PM CDT Plan of Treatment Health Maintenance Due Date Last Done Comments COVID-19 Vaccine ( season) 2024 11/26/2023, 12/11/2022, 12/03/2021, Additional history exists Influenza Vaccine (#1) 2024 , 12/17/2014, 11/16/2014, Additional history exists Pneumococcal PPSV23/PCV13 65 + Years / High and Highest Risk Completed 11/23/2018, 02/24/2017 Insurance PM INTERFACED INSURANCE PM INTERFACED INSURANCE [address] [place] [phone] Care Teams Whiskey Proof Reader Relationship Specialty Start Date End Date Oren Marshall MD [address] [place] [address] PCP - General 06/16/23
[2024-10-22 15:13] VITALS: BP 128/85; PULSE 80; RESP 18; TEMP 36.4; O2SAT 95; BMI 30.7
--- NOTE | 2024-10-22 16:10 | ED.GENADULT ---
HPI - General Adult General Chief complaint: Extremity Pain/Injury, Lower Stated complaint: Ingrown toe nail on right foot Time Seen by Provider: 10/22/24 14:53 History of Present Illness HPI narrative: Patient reports painful ingrown first toe nail of right foot 78-year-old man presenting to the emergency department with concern ingrown toenail on the right foot. He is accompanied by his daughter. He tried trimming his nails. Initially seems to be suggesting that his daughter had cut him some how but it sounds like he may have done this himself. Is complaining of increasing pain in his right great toe. No fever. No drainage. Related Data Home Medications ?Medication ?Instructions ?Recorded ?Confirmed cholecalciferol (vitamin D3) 125 125 mcg PO QDAY 01/01/22 09/20/24 mcg (5,000 unit) capsule diphenhydramine 25 2 tab PO QHS PRN 01/01/22 09/20/24 mg-acetaminophen 500 mg tablet (Tylenol PM Extra Strength) omeprazole 20 mg capsule,delayed 20 mg PO QDAY PRN 06/24/24 09/20/24 release Previous Rx's ?Medication ?Instructions ?Recorded apixaban 2.5 mg tablet (Eliquis) 2.5 mg PO BID #180 tabs 06/24/24 atorvastatin 20 mg tablet 20 mg PO QDAY #90 tabs 06/24/24 buspirone 5 mg tablet 5 mg PO BID #180 tabs 06/24/24 ipratropium 20 mcg-albuterol 100 1 puff inhalation QID #12 grams 06/24/24 mcg/actuation mist for inhalation (Combivent Respimat) lisinopril 20 mg tablet 20 mg PO QDAY #90 tabs 06/24/24 metoprolol succinate 100 mg See Rx Instructions .Route 06/24/24 tablet,extended release 24 hr .COMPLEX #135 tabs sertraline 100 mg tablet 100 mg PO DAILY #90 tabs 06/24/24 tizanidine 4 mg tablet See Rx Instructions .Route 06/24/24 .COMPLEX #180 tabs trospium 20 mg tablet 20 mg PO DAILY #90 tabs 06/24/24 amlodipine 5 mg tablet 5 mg PO QDAY #90 tabs 09/06/24 Allergies Allergy/AdvReac Type Severity Reaction Status Date / Time No Known Drug Allergies Allergy Verified 10/22/24 15:13 Review of Systems Status of ROS: Reports: 6 or more systems reviewed and unremarkable except as noted in History and below PFSH PFS Medical History History of positive PPD ?Z92.89 - Personal history of other medical treatment (ICD-10) Surgical History Status post cataract extraction ?Z98.49 - Cataract extraction status, unspecified eye (ICD-10) Status post open reduction and internal fixation (ORIF) of fracture ?Z98.890 - Other specified postprocedural states (ICD-10) ?Z87.81 - Personal history of (healed) traumatic fracture (ICD-10) Social History What is your current living situation?: I presently have a place to live Problems where you live: no known problems In the past 12 months, utilities in danger of being shut off: no In past 12 months, lack of transportation kept you from medical appts, meetings, work, or getting things needed for daily living: no In the past 12 mos, have been you worried that your food would run out before you had money to buy more?: never true In the past 12 mos, the food you bought just didn't last and you didn't have money to buy more?: never true Smoking Status: Never smoker How often do you have a drink containing alcohol: never How often do you have six or more drinks on one occasion: Never AUDIT-C Alcohol total score: 0 Non-prescribed substance use: denies use How often does anyone, including family, friends and others, physically hurt you: never How often does anyone, including family, friends and others, insult or talk down to you: rarely How often does anyone, including family, friends and others, threaten you with harm: never How often does anyone, including family, friends and others, scream or curse at you: rarely Health Related Social Needs: Other personal risk factors, not elsewhere classified (Z91.89) Exam Narrative: Exam Narrative: Pleasant. A little blunted affect. Breathing easily. Heart in regular rate. Well-perfused peripherally. Extremities are without significant edema. Examination of the right foot and then great toe in question does show that the toesnails in general are somewhat thickened. The medial nail fold of the right great toe with minimal calor. No significant swelling but with mild erythema. No drainage. The nail itself is coiled under/curled under medially. He is sensitive to palpation along this medial nail edge. I do not appreciate specific spur. Const: Vital Signs, click to edit/add: Vital Signs - 24 hr 10/22/24 15:13 Temperature 97.6 F Pulse Rate [Pulse Oximeter] 80 Respiratory Rate 18 Blood Pressure [Ri ght Upper Arm] 128/85 Pulse Oximetry 95 Oxygen Delivery Me thod Room Air Documenting provider has reviewed patient's vital signs: yes Course Vital Signs Vital signs: Initial Vital Signs Temperature 97.6 F 10/22/24 15:13 Temperature Source Temporal Artery Scan 10/22/24 15:13 Pulse Rate 80 10/22/24 15:13 Respiratory Rate 18 10/22/24 15:13 Blood Pressure 128/85 10/22/24 15:13 Blood Pressure Mean 99 10/22/24 15:13 Pulse Oximetry 95 10/22/24 15:13 Oxygen Delivery Method Room Air 10/22/24 15:13 Vital Signs Temperature 97.6 F 10/22/24 15:13 Pulse Rate 80 10/22/24 15:13 Respiratory Rate 18 10/22/24 15:13 Blood Pressure 128/85 10/22/24 15:13 Pulse Oximetry 95 10/22/24 15:13 Oxygen Delivery Method Room Air 10/22/24 15:13 Temperature 97.6 F 10/22/24 15:13 Pulse Rate 80 10/22/24 15:13 Respiratory Rate 18 10/22/24 15:13 Blood Pressure 128/85 10/22/24 15:13 Pulse Oximetry 95 10/22/24 15:13 Oxygen Delivery Method Room Air 10/22/24 15:13 Medical Decision Making MDM Narrative Medical decision making narrative: I do not see indication for antibiotics at this point. Soaking and attempted elevation has not yet been done. I did mention though that I am concerned that given the degree of coiling of the nail, that I see that this might ultimately be successful. I did then propose anesthetizing and a wedge resection. Acknowledging also the apixaban that he is taking. After risks and benefits were discussed, decided to proceed with exploration and likely a wedge resection. After I left to get anesthesia, I was informed by daughter and then confirmed by my conversation with Richy that they actually would like to go home and try soaking and nail elevation on their own 1st. I do not think that is unreasonable. See patient discharge plan for further discussion Thankfully I think what we are seeing currently is mostly inflammation. I think it is reasonable as you are wanting to do, to go home and soak your toe for a while in warm soapy or Epsom salt water and then try to carefully elevate this toenail edge with a wedge as discussed. You might need to do this for many days. I would also apply antibiotic ointment and a Band-Aid loosely otherwise. Watch for spreading redness after 2 days, marked increase in pain or swelling, purulent drainage. Medical Records Medical records reviewed: Yes I reviewed the patient's medical records Discharge Plan Discharge Clinical Impression: Ingrown right big toenail Patient Disposition: Home w/ Parent or Adult Condition: Stable Additional Instructions: Thankfully I think what we are seeing currently is mostly inflammation. I think it is reasonable as you are wanting to do, to go home and soak your toe for a while in warm soapy or Epsom salt water and then try to carefully elevate this toenail edge with a wedge as discussed. You might need to do this for many days. I would also apply antibiotic ointment and a Band-Aid loosely otherwise. Watch for spreading redness after 2 days, marked increase in pain or swelling, purulent drainage. Prescriptions: No Action Eliquis 2.5 mg tablet 2.5 mg PO BID Qty: 180 3RF atorvastatin 20 mg tablet 20 mg PO QDAY Qty: 90 3RF buspirone 5 mg tablet 5 mg PO BID Qty: 180 3RF Combivent Respimat 20-100 mcg/actuation mist 1 puff inhalation QID Qty: 12 3RF Rx Instructions: space evenly during waking hours lisinopril 20 mg tablet 20 mg PO QDAY Qty: 90 3RF metoprolol succinate 100 mg tablet extended release 24 hr See Rx Instructions .ROUTE .COMPLEX Qty: 135 3RF Dose Instruction: TAKE 1 TABLET DAILY Rx Instructions: TAKE 1 & 1/2 TABLETs DAILY sertraline 100 mg tablet 100 mg PO DAILY Qty: 90 3RF tizanidine 4 mg tablet See Rx Instructions .ROUTE .COMPLEX Qty: 180 5RF Dose Instruction: TAKE ONE-HALF (1/2) TO ONE TABLET (2 TO 4 MG) EVERY 8 HOURS NEEDED Rx Instructions: TAKE ONE-HALF (1/2) TO ONE TABLET (2 TO 4 MG) EVERY 8 HOURS NEEDED trospium 20 mg tablet 20 mg PO DAILY Qty: 90 3RF diphenhydramine-acetaminophen [Tylenol PM Extra Strength] 25-500 mg tablet 2 tab PO QHS PRN cholecalciferol (vitamin D3) 125 mcg (5,000 unit) capsule 125 mcg PO QDAY omeprazole 20 mg capsule,delayed release(DR/EC) 20 mg PO QDAY PRN amlodipine 5 mg tablet 5 mg PO QDAY Qty: 90 3RF Follow Up/Referrals: Ej Marshall MD [Primary Care Provider, Family Practice] Stand Alone Forms: [employer] Info Instructions
== END 2024-10-22 16:44 | disposition home or self-care (01) ==
PROVIDERS: Emergency Provider Family Medicine; PCP Family Medicine
DX: L60.0 Ingrowing nail (principal)
CPT/HCPCS: 99281; 99283; 99284

== ENCOUNTER 2024-12-16 09:16 | Outpatient (CLI) | payer MEDICARE, OTHER, SELFPAY ==
[2024-12-16 23:49] LABS: Chloride* 107 mmol/L (96-114); Potassium* 5.0 mmol/L (3.6-5.1); Sodium* 139 mmol/L (135-149)
[2024-12-16 23:52] LABS: Anion Gap 13 mEq/L (7-15); Blood Urea Nitrogen* 30 mg/dL (7-30); Carbon Dioxide* 19 mmol/L (20-32); Creatinine* 2.4 mg/dL (0.5-1.5); Estimated Glomerular Filt Rate 27 ml/min
[2024-12-16 23:53] LABS: Calcium* 8.7 mg/dL (8.4-10.6); Glucose* 76 mg/dL (60-115)
== END 2024-12-16 09:17 | disposition home or self-care (01) ==
PROVIDERS: Physician Assistant; PCP Family Medicine; Visit Provider Internal Medicine Nephrology
DX: N18.4 Chronic kidney disease, stage 4 (severe) (principal)
CPT/HCPCS: 80048

== ENCOUNTER 2025-01-18 12:01 | Outpatient (CLI) | payer MEDICARE, OTHER, SELFPAY | END 2025-01-18 12:02 | disposition home or self-care (01) | LOC: LKVREF 12:02 | PROVIDERS: PCP Family Medicine; Visit Provider Family Medicine | DX: N18.4 Chronic kidney disease, stage 4 (severe) (principal) | CPT/HCPCS: 80048 ==

== ENCOUNTER 2025-01-27 09:15 | Outpatient (CLI) | payer MEDICARE, OTHER, SELFPAY | END 2025-01-27 09:16 | disposition home or self-care (01) | LOC: NFLDREF 02-01 11:22 | PROVIDERS: PCP Family Medicine; Referring Provider Family Medicine; Visit Provider Family Medicine | DX: I12.9 Hypertensive chronic kidney disease with stage 1 through stage 4 chronic kidney disease, or unspecified chronic kidney disease (principal); N18.4 Chronic kidney disease, stage 4 (severe) | CPT/HCPCS: 80048 ==